=== PATIENT | female | born 1990 | race Caucasian/White ===

== ENCOUNTER 2017-11-11 18:31 | Inpatient (IN) ==
[2017-11-11] MEDS ORDERED: ONDANSETRON 4 MG/2 ML VIAL IV STA (18:45)
[2017-11-11] MEDS ORDERED: MORPHINE 4 MG/1 ML VIAL IV STA (18:45)
[2017-11-11] MEDS ORDERED: DIPH/TET/ACEL PERT BOOSTER VACCINE 0.5 ML VIAL IM ONE (18:52)
[2017-11-11] MEDS ORDERED: LEVOFLOXACIN INJ 500 MG in PREMIX 1 EACH IV STA (18:52)
[2017-11-11] MEDS ORDERED: HYDROmorphone 2 MG/1 ML VIAL ONE (18:59)
[2017-11-11] MEDS ORDERED: HYDROmorphone 2 MG/1 ML VIAL IV STA (19:06)
[2017-11-11] MEDS ORDERED: GENTAMICIN INJ 160 MG in SODIUM CHLORIDE 0.9% 100 ML IV STA (20:16)
[2017-11-11] MEDS ORDERED: CLINDAMYCIN INJ 900 MG in PREMIX 1 EACH IV STA (20:16)
[2017-11-11] MEDS ORDERED: SODIUM CHLORIDE 0.9% IV STA (20:25)
[2017-11-11] MEDS ORDERED: GENTAMICIN IV STA (20:25)
[2017-11-11 20:53] LABS: Basophils # 0.1 10*3/uL (0.0-0.2); Basophils % 0.2 % (0.0-0.8); Eosinophils % 0.1 % (0.00-10.9); Hematocrit 38.4 VOL% (35.7-47.0); Hemoglobin 12.3 GM/DL (12.0-16.0); Immature Granulocytes % 0.7 %; Immature Granulocytes Absolute 0.15 #; Lymphocytes # 1.4 10*3/uL (1.4-4.0); Lymphocytes % 6.1 % (21.3-54.2); Mean Corpuscular Hemoglobin 29 PG (27-34); Mean Corpuscular Volume 91.4 FL (87-102); Mean Platelet Volume 9.5 FL (9.6-12.0); Monocytes # 1.5 10*3/uL (0.11-0.8); Monocytes % 6.5 % (1.7-12.7); Neutrophils # 19.6 10*3/uL (1.4-7.4); Neutrophils % 86.4 % (38.7-73.9); Platelet Count 335 T/CUMM (130-400); Red Cell Distribution Width 13.9 % (9.3-17.3); White Blood Count 22.6 T/CUMM (4-12)
[2017-11-11 21:11] LABS: Lactic Acid 1.1 MMOL/L (0.4-2.0)
[2017-11-11 21:13] LABS: Alanine Aminotransferase 102 U/L (13-56); Albumin 3.3 G/DL (3.4-5.0); Alkaline Phosphatase 55 U/L (45-117); Aspartate Amino Transferase 103 U/L (0-37); Blood Urea Nitrogen 14 MG/DL (7-18); Calcium 8.1 MG/DL (8.5-10.1); Glucose 143 MG/DL (74-106); Osmolality,Calculated 285.1 MOS/KG (273-304); Sodium 142 MMOL/L (136-145); Total Protein 6.5 G/DL (6.4-8.3); Troponin I Only < 0.015 NG/ML (0.00-0.045)
[2017-11-11 21:17] LABS: Band Neutrophils 8 % (0-10); Lymphocytes 11 % (20-55); Segmented Neutrophils 77 % (50-85); Total Cells Counted 100
[2017-11-11 21:18] LABS: Platelet Estimate Normal
[2017-11-11] MEDS ORDERED: ALBUTEROL 2.5 MG/3 ML NEB RESP TX ONE (21:24)
[2017-11-12] MEDS ORDERED: MIDAZOLAM 10 MG/2 ML VIAL ONE (00:16)
[2017-11-12] MEDS ORDERED: methylPREDNISolone SOD SUC 125 MG/2 ML VIAL ONE (00:16)
[2017-11-12] MEDS ORDERED: PROPOFOL 200 MG/20 ML VIAL IV ONE (00:16)
[2017-11-12] MEDS ORDERED: SEVOFLURANE 1 UNIT/15 MINUTE INH ONE (00:16)
[2017-11-12] MEDS ORDERED: MIDAZOLAM 2 MG/2 ML VIAL ONE (00:16)
[2017-11-12] MEDS ORDERED: fentaNYL 100 MCG/2 ML VIAL ONE (00:16)
[2017-11-12] MEDS ORDERED: LACTATED RINGERS 2,000 ML IV ONE (00:17)
[2017-11-12] MEDS ORDERED: ROCURONIUM 100 MG/10 ML VIAL IV ONE (00:17)
[2017-11-12] MEDS ORDERED: SUCCINYLCHOLINE 200 MG/10 ML VIAL ONE (00:17)
[2017-11-12] MEDS ORDERED: PHENYLEPHRINE 1 MG/10 ML SYRINGE IV ONE (00:17)
[2017-11-12] MEDS: DEXTROSE 5% LACTATED RINGERS 1,000 ML IV SCH ×5 (00:39→23:21)
[2017-11-12] MEDS: PROPOFOL 1,000 MG/100 ML BOTTLE IV SCH ×12 (00:39→23:32)
[2017-11-12 00:49] LABS: Apearance,Urine CLEAR (Clear); Bilirubin,Urine Negative (Negative); Blood, Urine Negative (Negative); Glucose,Urine (UA) Negative (Negative); Ketones,Urine 20 mg/dL (Negative); Mucus,Urine Occasional /LPF (Occasional); Nitrite,Urine Negative (Negative); Protein,Urine Negative; RBC,Urine 14 /HPF (0-4); Squamous Epithelial Cell,Urine Occasional /HPF (0-10); Urine Color Yellow (Yellow); Urine Specific Gravity > 1.060 (1.001-1.035); Urine Urobilinogen < 2.0 EU/DL (0.2-1.0); WBC,Urine 1 /HPF (0-6)
[2017-11-12 00:50] LABS: ABG Base Excess -1.9 MMOL/L (-2.5-2.5); ABG HCO3 24.9 MMOL/L (20-26); ABG Oxygen Saturation 98.2 % (95-100); ABG PCO2 50.7 MM HG (35-48); ABG PH 7.309 (7.35-7.45); ABG PO2 145.4 MM HG (80-95); ABG TCO2 26.5 MMOL/L (23-27)
[2017-11-12] MEDS: MORPHINE 4 MG/1 ML VIAL IV PRN ×4 (03:17→23:20)
[2017-11-12] MEDS: GENTAMICIN INJ 240 MG in SODIUM CHLORIDE 0.9% 100 ML IV SCH ×3 (05:00→21:40)
[2017-11-12] MEDS: CLINDAMYCIN INJ 900 MG in PREMIX 1 EACH IV SCH ×3 (05:30→21:41)
[2017-11-12 06:42] LABS: Basophils % 0.2 % (0.0-0.8); Hematocrit 36.1 VOL% (35.7-47.0); Hemoglobin 11.5 GM/DL (12.0-16.0); Immature Granulocytes % 1.5 %; Immature Granulocytes Absolute 0.26 #; Lymphocytes % 5.9 % (21.3-54.2); Mean Corpuscular HGB Conc 31.9 GM/DL (32-36); Mean Corpuscular Hemoglobin 29 PG (27-34); Mean Corpuscular Volume 90.5 FL (87-102); Monocytes # 0.6 10*3/uL (0.11-0.8); Monocytes % 3.3 % (1.7-12.7); Neutrophils % 89.1 % (38.7-73.9); Platelet Count 337 T/CUMM (130-400); Red Blood Count 3.99 MC/CUMM (3.8-5.5); White Blood Count 16.8 T/CUMM (4-12)
[2017-11-12] MEDS ORDERED: LACTATED RINGERS 1,000 ML IV ONE (07:08)
[2017-11-12 07:15] LABS: Calcium 8.3 MG/DL (8.5-10.1); Osmolality,Calculated 287.1 MOS/KG (273-304); Potassium 4.7 MMOL/L (3.5-5.1)
[2017-11-12 07:35] LABS: ABG Base Excess 0.2 MMOL/L (-2.5-2.5); ABG HCO3 26.4 MMOL/L (20-26); ABG Oxygen Saturation 98.7 % (95-100); ABG PCO2 49.2 MM HG (35-48); ABG PH 7.347 (7.35-7.45); ABG PO2 172.9 MM HG (80-95); ABG TCO2 27.9 MMOL/L (23-27)
[2017-11-12] MEDS ORDERED: DEXTROSE 50% 25 GM/50 ML VIAL IV PRN (08:01)
[2017-11-12] MEDS ORDERED: GLUCAGON 1 MG VIAL IM PRN (08:01)
[2017-11-12] MEDS: PANTOPRAZOLE 40 MG VIAL IV SCH (09:36)
[2017-11-12] MEDS: ALBUTEROL/IPRATROPIUM 3 ML NEB RESP TX SCH ×3 (10:35→19:20)
[2017-11-12] MEDS: INSULIN LISPRO 100 UNIT/ML SUBCUT SCH ×2 (12:43→18:30)
[2017-11-12] MEDS: FONDAPARINUX 2.5 MG/0.5 ML SYRINGE SUBCUT SCH (15:54)
[2017-11-13] MEDS: INSULIN LISPRO 100 UNIT/ML SUBCUT SCH ×4 (00:07→19:10)
[2017-11-13] MEDS: PROPOFOL 1,000 MG/100 ML BOTTLE IV SCH ×15 (00:58→22:50)
[2017-11-13 04:57] LABS: Allen Test Positive; Pt O2 Delivery Device Ventilator
[2017-11-13] MEDS: CLINDAMYCIN INJ 900 MG in PREMIX 1 EACH IV SCH ×3 (05:19→21:37)
[2017-11-13 05:30] LABS: ABG Base Excess 2.8 MMOL/L (-2.5-2.5); ABG HCO3 26.9 MMOL/L (20-26); ABG Oxygen Saturation 98.1 % (95-100); ABG PCO2 54.4 MM HG (35-48); ABG PH 7.342 (7.35-7.45); ABG TCO2 27.1 MMOL/L (23-27)
[2017-11-13] MEDS: DEXTROSE 5% LACTATED RINGERS 1,000 ML IV SCH ×2 (06:50→14:46)
[2017-11-13] MEDS: ALBUTEROL/IPRATROPIUM 3 ML NEB RESP TX SCH ×4 (07:02→19:19)
[2017-11-13] MEDS: MORPHINE 4 MG/1 ML VIAL IV PRN ×4 (08:34→23:39)
[2017-11-13] MEDS: PANTOPRAZOLE 40 MG VIAL IV SCH (08:36)
[2017-11-13 09:25] LABS: Basophils % 0.2 % (0.0-0.8); Eosinophils % 0.3 % (0.00-10.9); Hematocrit 31.5 VOL% (35.7-47.0); Hemoglobin 9.6 GM/DL (12.0-16.0); Immature Granulocytes % 0.7 %; Immature Granulocytes Absolute 0.09 #; Lymphocytes # 2.3 10*3/uL (1.4-4.0); Lymphocytes % 18.6 % (21.3-54.2); Mean Corpuscular HGB Conc 30.5 GM/DL (32-36); Mean Corpuscular Hemoglobin 29 PG (27-34); Mean Platelet Volume 10.6 FL (9.6-12.0); Monocytes # 1.2 10*3/uL (0.11-0.8); Monocytes % 9.5 % (1.7-12.7); Neutrophils # 8.6 10*3/uL (1.4-7.4); Neutrophils % 70.7 % (38.7-73.9); Platelet Count 202 T/CUMM (130-400); Red Blood Count 3.28 MC/CUMM (3.8-5.5); Red Cell Distribution Width 14.3 % (9.3-17.3); White Blood Count 12.2 T/CUMM (4-12)
[2017-11-13] MEDS: GENTAMICIN INJ 280 MG in SODIUM CHLORIDE 0.9% 100 ML IV SCH ×3 (11:49→21:37)
[2017-11-13] MEDS: FONDAPARINUX 2.5 MG/0.5 ML SYRINGE SUBCUT SCH (15:17)
[2017-11-13] MEDS ORDERED: AMINOPHYLLINE 250 MG in SODIUM CHLORIDE 0.9% 100 ML IV ONE (16:29)
[2017-11-14] MEDS: INSULIN LISPRO 100 UNIT/ML SUBCUT SCH ×4 (00:26→19:09)
[2017-11-14] MEDS: PROPOFOL 1,000 MG/100 ML BOTTLE IV SCH ×15 (00:26→22:10)
[2017-11-14] MEDS: DEXTROSE 5% LACTATED RINGERS 1,000 ML IV SCH ×3 (00:53→21:14)
[2017-11-14] MEDS: AMINOPHYLLINE 500 MG in SODIUM CHLORIDE 0.9% 480 ML IV SCH (03:50)
[2017-11-14] MEDS: MORPHINE 4 MG/1 ML VIAL IV PRN ×4 (04:15→23:33)
[2017-11-14] MEDS: GENTAMICIN INJ 280 MG in SODIUM CHLORIDE 0.9% 100 ML IV SCH ×3 (05:03→21:16)
[2017-11-14] MEDS: CLINDAMYCIN INJ 900 MG in PREMIX 1 EACH IV SCH ×3 (05:20→21:15)
[2017-11-14 05:21] LABS: Basophils % 0.4 % (0.0-0.8); Eosinophils # 0.1 10*3/uL (0.0-0.87); Eosinophils % 1.1 % (0.00-10.9); Hematocrit 26.7 VOL% (35.7-47.0); Hemoglobin 8.4 GM/DL (12.0-16.0); Immature Granulocytes Absolute 0.11 #; Lymphocytes # 1.9 10*3/uL (1.4-4.0); Lymphocytes % 16.7 % (21.3-54.2); Mean Corpuscular HGB Conc 31.5 GM/DL (32-36); Mean Corpuscular Hemoglobin 30 PG (27-34); Mean Corpuscular Volume 93.7 FL (87-102); Mean Platelet Volume 9.6 FL (9.6-12.0); Monocytes # 1.1 10*3/uL (0.11-0.8); Monocytes % 9.3 % (1.7-12.7); Neutrophils # 8.2 10*3/uL (1.4-7.4); Neutrophils % 71.5 % (38.7-73.9); Platelet Count 243 T/CUMM (130-400); Red Blood Count 2.85 MC/CUMM (3.8-5.5); Red Cell Distribution Width 14.2 % (9.3-17.3); White Blood Count 11.4 T/CUMM (4-12)
[2017-11-14 05:53] LABS: Calcium 7.8 MG/DL (8.5-10.1); Osmolality,Calculated 281.1 MOS/KG (273-304)
[2017-11-14] MEDS: ALBUTEROL/IPRATROPIUM 3 ML NEB RESP TX SCH ×4 (07:03→20:14)
[2017-11-14] MEDS: PANTOPRAZOLE 40 MG VIAL IV SCH (08:05)
[2017-11-14 09:28] LABS: ABG Base Excess 5.3 MMOL/L (-2.5-2.5); ABG HCO3 29.2 MMOL/L (20-26); ABG Oxygen Saturation 98.4 % (95-100); ABG PCO2 54.4 MM HG (35-48); ABG PH 7.372 (7.35-7.45); ABG TCO2 29.3 MMOL/L (23-27)
[2017-11-14] MEDS: MIDAZOLAM 100 MG in SODIUM CHLORIDE 0.9% 80 ML IV PRN (12:42)
[2017-11-14] MEDS: FONDAPARINUX 2.5 MG/0.5 ML SYRINGE SUBCUT SCH (16:18)
[2017-11-15] MEDS: PROPOFOL 1,000 MG/100 ML BOTTLE IV SCH ×10 (00:10→20:57)
[2017-11-15] MEDS: INSULIN LISPRO 100 UNIT/ML SUBCUT SCH ×4 (00:12→17:34)
[2017-11-15] MEDS: AMINOPHYLLINE 500 MG in SODIUM CHLORIDE 0.9% 480 ML IV SCH (04:43)
[2017-11-15 04:51] LABS: ABG Base Excess 6.7 MMOL/L (-2.5-2.5); ABG HCO3 30.6 MMOL/L (20-26); ABG PCO2 50.8 MM HG (35-48); ABG PH 7.414 (7.35-7.45); ABG TCO2 29.4 MMOL/L (23-27); Allen Test Positive; Pt O2 Delivery Device Ventilator
[2017-11-15] MEDS: CLINDAMYCIN INJ 900 MG in PREMIX 1 EACH IV SCH ×3 (05:17→21:37)
[2017-11-15] MEDS: GENTAMICIN INJ 280 MG in SODIUM CHLORIDE 0.9% 100 ML IV SCH ×3 (05:17→22:35)
[2017-11-15] MEDS: MORPHINE 4 MG/1 ML VIAL IV PRN ×2 (05:38→20:07)
[2017-11-15] MEDS ORDERED: BACITRACIN OINT 0.9 GM PACK TOP ONE (06:49)
[2017-11-15] MEDS ORDERED: BUPIVACAINE 0.5% 50 ML VIAL ONE (06:50)
[2017-11-15] MEDS: ALBUTEROL/IPRATROPIUM 3 ML NEB RESP TX SCH ×4 (07:25→19:19)
[2017-11-15 07:38] LABS: Hematocrit 23.2 VOL% (35.7-47.0); Hemoglobin 7.4 GM/DL (12.0-16.0); Mean Corpuscular HGB Conc 31.9 GM/DL (32-36); Mean Corpuscular Hemoglobin 29 PG (27-34); Mean Corpuscular Volume 91.3 FL (87-102); Red Blood Count 2.54 MC/CUMM (3.8-5.5); White Blood Count 11.9 T/CUMM (4-12)
[2017-11-15 07:39] LABS: Basophils % 0.3 % (0.0-0.8); Eosinophils # 0.3 10*3/uL (0.0-0.87); Eosinophils % 2.6 % (0.00-10.9); Immature Granulocytes Absolute 0.12 #; Lymphocytes # 1.4 10*3/uL (1.4-4.0); Lymphocytes % 12.1 % (21.3-54.2); Mean Platelet Volume 9.9 FL (9.6-12.0); Monocytes # 0.9 10*3/uL (0.11-0.8); Monocytes % 7.9 % (1.7-12.7); Neutrophils # 9.1 10*3/uL (1.4-7.4); Neutrophils % 76.1 % (38.7-73.9); Platelet Count 232 T/CUMM (130-400); Red Cell Distribution Width 13.8 % (9.3-17.3)
[2017-11-15 08:16] LABS: Calcium 7.9 MG/DL (8.5-10.1); Osmolality,Calculated 277.4 MOS/KG (273-304); Potassium 3.5 MMOL/L (3.5-5.1)
[2017-11-15] MEDS ORDERED: NEOMYCIN/POLYMYXIN/BACITRACIN OINT 28.4 GM TUBE TOP ONE (09:15)
[2017-11-15] MEDS ORDERED: FUROSEMIDE 40 MG/4 ML VIAL IV PRN (11:15)
[2017-11-15] MEDS ORDERED: SODIUM CHLORIDE 0.9% 1,000 ML IV PRN (11:15)
[2017-11-15] MEDS: DEXTROSE 5% LACTATED RINGERS 1,000 ML IV SCH ×2 (11:25→14:46)
[2017-11-15] MEDS ORDERED: SUFentanil 50 MCG/ML AMP ONE (11:31)
[2017-11-15] MEDS ORDERED: SEVOFLURANE 1 UNIT/15 MINUTE INH ONE (11:31)
[2017-11-15] MEDS ORDERED: MIDAZOLAM 10 MG/2 ML VIAL ONE (11:31)
[2017-11-15] MEDS ORDERED: ROCURONIUM 100 MG/10 ML VIAL IV ONE (11:33)
[2017-11-15] MEDS ORDERED: PROPOFOL 200 MG/20 ML VIAL IV ONE (11:34)
[2017-11-15] MEDS ORDERED: PROPOFOL 500 MG/50 ML BOTTLE IV ONE ×2 (11:35)
[2017-11-15] MEDS: PANTOPRAZOLE 40 MG VIAL IV SCH (13:23)
[2017-11-15] MEDS: ACETAMINOPHEN 325 MG TABLET PO PRN (14:02)
[2017-11-15] MEDS: FONDAPARINUX 2.5 MG/0.5 ML SYRINGE SUBCUT SCH (14:57)
[2017-11-15] MEDS: MAGNESIUM SULF RIDER 2 GM in PREMIX 1 EACH IV PRN (16:26)
[2017-11-15] MEDS: MIDAZOLAM 100 MG in SODIUM CHLORIDE 0.9% 80 ML IV PRN (16:36)
[2017-11-15] MEDS ORDERED: MINERAL OIL/PETROLATUM OPH OINT 3.5 GM TUBE ONE (19:31)
[2017-11-16] MEDS: INSULIN LISPRO 100 UNIT/ML SUBCUT SCH ×2 (00:06→06:03)
[2017-11-16] MEDS: PROPOFOL 1,000 MG/100 ML BOTTLE IV SCH ×3 (00:25→06:58)
[2017-11-16] MEDS: DEXTROSE 5% LACTATED RINGERS 1,000 ML IV SCH (02:37)
[2017-11-16] MEDS: MORPHINE 4 MG/1 ML VIAL IV PRN ×3 (02:58→11:02)
[2017-11-16 03:30] LABS: ABG Base Excess 8.6 MMOL/L (-2.5-2.5); ABG HCO3 32.4 MMOL/L (20-26); ABG PCO2 47.8 MM HG (35-48); ABG PH 7.452 (7.35-7.45); ABG TCO2 32.2 MMOL/L (23-27); Allen Test Positive; Pt O2 Delivery Device Ventilator
[2017-11-16] MEDS: CLINDAMYCIN INJ 900 MG in PREMIX 1 EACH IV SCH ×3 (05:58→21:08)
[2017-11-16] MEDS: GENTAMICIN INJ 280 MG in SODIUM CHLORIDE 0.9% 100 ML IV SCH (06:00)
[2017-11-16] MEDS: AMINOPHYLLINE 500 MG in SODIUM CHLORIDE 0.9% 480 ML IV SCH (06:05)
[2017-11-16 06:06] LABS: Basophils % 0.3 % (0.0-0.8); Eosinophils # 0.4 10*3/uL (0.0-0.87); Eosinophils % 2.4 % (0.00-10.9); Hematocrit 25.6 VOL% (35.7-47.0); Hemoglobin 8.6 GM/DL (12.0-16.0); Immature Granulocytes % 1.5 %; Immature Granulocytes Absolute 0.22 #; Lymphocytes # 1.4 10*3/uL (1.4-4.0); Mean Corpuscular HGB Conc 33.6 GM/DL (32-36); Mean Corpuscular Hemoglobin 30 PG (27-34); Mean Corpuscular Volume 88.3 FL (87-102); Mean Platelet Volume 9.7 FL (9.6-12.0); Monocytes # 1.3 10*3/uL (0.11-0.8); Monocytes % 8.4 % (1.7-12.7); Neutrophils # 11.9 10*3/uL (1.4-7.4); Neutrophils % 78.4 % (38.7-73.9); Platelet Count 252 T/CUMM (130-400); Red Cell Distribution Width 14.1 % (9.3-17.3); White Blood Count 15.2 T/CUMM (4-12)
[2017-11-16 06:13] LABS: Calcium 7.7 MG/DL (8.5-10.1); Osmolality,Calculated 275.5 MOS/KG (273-304); Potassium 3.2 MMOL/L (3.5-5.1)
[2017-11-16 06:36] LABS: Prealbumin 6.9 MG/DL (20-40)
[2017-11-16] MEDS: ALBUTEROL/IPRATROPIUM 3 ML NEB RESP TX SCH ×4 (07:33→20:05)
[2017-11-16] MEDS ORDERED: FUROSEMIDE 40 MG/4 ML VIAL IV ONE (08:02)
[2017-11-16] MEDS ORDERED: MULTIVITAMIN LIQUID (CENTRUM) 60 ML BOTTLE PO SCH (09:00)
[2017-11-16] MEDS: fentaNYL INJ 1,250 MCG in SODIUM CHLORIDE 0.9% 225 ML IV PRN ×3 (09:45→19:01)
[2017-11-16] MEDS: MIDAZOLAM 100 MG in SODIUM CHLORIDE 0.9% 80 ML IV PRN (09:47)
[2017-11-16] MEDS: PANTOPRAZOLE 40 MG VIAL IV SCH (09:50)
[2017-11-16] MEDS: POTASSIUM CHLORIDE RIDER 20 MEQ in PREMIX 1 EACH IV PRN ×3 (09:55→22:35)
[2017-11-16] MEDS: GENTAMICIN IV SCH (14:43)
[2017-11-16] MEDS: SODIUM CHLORIDE 0.9% IV SCH (14:43)
[2017-11-16] MEDS: FONDAPARINUX 2.5 MG/0.5 ML SYRINGE SUBCUT SCH (14:57)
[2017-11-16] MEDS: fentaNYL INJ 2,500 MCG in SODIUM CHLORIDE 0.9% 450 ML IV PRN (22:30)
[2017-11-17] MEDS: POTASSIUM CHLORIDE RIDER 10 MEQ in PREMIX 1 EACH IV PRN (00:58)
[2017-11-17] MEDS: MIDAZOLAM 100 MG in SODIUM CHLORIDE 0.9% 80 ML IV PRN ×2 (03:50→23:35)
[2017-11-17 03:53] LABS: ABG Base Excess 7.8 MMOL/L (-2.5-2.5); ABG HCO3 31.5 MMOL/L (20-26); ABG Oxygen Saturation 98.1 % (95-100); ABG PCO2 59.8 MM HG (35-48); ABG PH 7.373 (7.35-7.45); ABG TCO2 31.6 MMOL/L (23-27)
[2017-11-17] MEDS: fentaNYL INJ 2,500 MCG in SODIUM CHLORIDE 0.9% 450 ML IV PRN ×2 (05:10→12:03)
[2017-11-17] MEDS: CLINDAMYCIN INJ 900 MG in PREMIX 1 EACH IV SCH ×3 (05:10→22:03)
[2017-11-17 05:17] LABS: Basophils # 0.1 10*3/uL (0.0-0.2); Basophils % 0.3 % (0.0-0.8); Eosinophils # 0.5 10*3/uL (0.0-0.87); Eosinophils % 2.9 % (0.00-10.9); Hematocrit 26.5 VOL% (35.7-47.0); Hemoglobin 8.5 GM/DL (12.0-16.0); Immature Granulocytes % 3.4 %; Lymphocytes # 1.7 10*3/uL (1.4-4.0); Lymphocytes % 9.9 % (21.3-54.2); Mean Corpuscular HGB Conc 32.1 GM/DL (32-36); Mean Corpuscular Hemoglobin 29 PG (27-34); Mean Corpuscular Volume 91.1 FL (87-102); Mean Platelet Volume 9.7 FL (9.6-12.0); Monocytes # 2.1 10*3/uL (0.11-0.8); Monocytes % 12.1 % (1.7-12.7); NRBC # 0.05 10*3/uL; Neutrophils # 12.4 10*3/uL (1.4-7.4); Neutrophils % 71.4 % (38.7-73.9); Platelet Count 255 T/CUMM (130-400); Red Blood Count 2.91 MC/CUMM (3.8-5.5); Red Cell Distribution Width 13.9 % (9.3-17.3); White Blood Count 17.4 T/CUMM (4-12)
[2017-11-17 05:37] LABS: Band Neutrophils 1 % (0-10); Eosinophils 3 % (0-10); Giant Platelets Few; Hypochromasia 1+; Lymphocytes 11 % (20-55); Platelet Estimate Adequate; Segmented Neutrophils 78 % (50-85); Total Cells Counted 100
[2017-11-17 05:43] LABS: Calcium 7.3 MG/DL (8.5-10.1); Osmolality,Calculated 276.5 MOS/KG (273-304); Potassium 3.6 MMOL/L (3.5-5.1)
[2017-11-17] MEDS: POTASSIUM CHLORIDE RIDER 20 MEQ in PREMIX 1 EACH IV PRN (06:19)
[2017-11-17] MEDS: ALBUTEROL/IPRATROPIUM 3 ML NEB RESP TX SCH ×4 (06:59→19:12)
[2017-11-17] MEDS: AMINOPHYLLINE 500 MG in SODIUM CHLORIDE 0.9% 480 ML IV SCH (08:44)
[2017-11-17] MEDS: ACETAMINOPHEN 325 MG TABLET PO PRN ×2 (08:48→13:52)
[2017-11-17] MEDS: PANTOPRAZOLE 40 MG VIAL IV SCH (08:49)
[2017-11-17 10:31] LABS: Apearance,Urine Slightly Hazy (Clear); Bacteria,Urine Occasional /HPF (Few); Bilirubin,Urine Small mg/dL (Negative); Blood, Urine Small mg/dL (Negative); Glucose,Urine (UA) Negative (Negative); Ketones,Urine Negative (Negative); Mucus,Urine Occasional /LPF (Occasional); Nitrite,Urine Negative (Negative); Protein,Urine 100 MG/DL; RBC,Urine 64 /HPF (0-4); Squamous Epithelial Cell,Urine Occasional /HPF (0-10); Urine Color Dark yellow (Yellow); Urine Specific Gravity 1.024 (1.001-1.035); WBC,Urine 5 /HPF (0-6)
[2017-11-17 10:42] LABS: ABG Base Excess 8.1 MMOL/L (-2.5-2.5); ABG HCO3 31.9 MMOL/L (20-26); ABG Oxygen Saturation 99.6 % (95-100); ABG PCO2 48.3 MM HG (35-48); ABG PH 7.445 (7.35-7.45)
[2017-11-17] MEDS: LEVOFLOXACIN INJ 750 MG in PREMIX 1 EACH IV SCH (10:58)
[2017-11-17] MEDS: THEOPHYLLINE ER (24 HR) 400 MG CAPSULE PO SCH (13:52)
[2017-11-17] MEDS: GENTAMICIN IV SCH (14:06)
[2017-11-17] MEDS: SODIUM CHLORIDE 0.9% IV SCH (14:06)
[2017-11-17] MEDS: FONDAPARINUX 2.5 MG/0.5 ML SYRINGE SUBCUT SCH (15:56)
[2017-11-18] MEDS: fentaNYL INJ 2,500 MCG in SODIUM CHLORIDE 0.9% 450 ML IV PRN ×4 (01:05→21:42)
[2017-11-18] MEDS: ACETAMINOPHEN 325 MG TABLET PO PRN ×3 (03:56→13:20)
[2017-11-18 04:16] LABS: Basophils # 0.1 10*3/uL (0.0-0.2); Basophils % 0.3 % (0.0-0.8); Eosinophils # 0.4 10*3/uL (0.0-0.87); Hematocrit 23.2 VOL% (35.7-47.0); Hemoglobin 7.3 GM/DL (12.0-16.0); Immature Granulocytes % 8.4 %; Immature Granulocytes Absolute 1.48 #; Lymphocytes # 1.9 10*3/uL (1.4-4.0); Lymphocytes % 10.7 % (21.3-54.2); Mean Corpuscular HGB Conc 31.5 GM/DL (32-36); Mean Corpuscular Hemoglobin 29 PG (27-34); Mean Corpuscular Volume 92.4 FL (87-102); Mean Platelet Volume 10.3 FL (9.6-12.0); Monocytes # 2.5 10*3/uL (0.11-0.8); Monocytes % 14.2 % (1.7-12.7); NRBC # 0.04 10*3/uL; Neutrophils # 11.3 10*3/uL (1.4-7.4); Neutrophils % 64.4 % (38.7-73.9); Platelet Count 237 T/CUMM (130-400); Red Blood Count 2.51 MC/CUMM (3.8-5.5); Red Cell Distribution Width 14.2 % (9.3-17.3); White Blood Count 17.6 T/CUMM (4-12)
[2017-11-18 04:43] LABS: Calcium 7.2 MG/DL (8.5-10.1)
[2017-11-18 04:44] LABS: Osmolality,Calculated 282.7 MOS/KG (273-304); Potassium 3.6 MMOL/L (3.5-5.1)
[2017-11-18 04:46] LABS: Band Neutrophils 4 % (0-10); Eosinophils 4 % (0-10); Giant Platelets Few; Hypochromasia 1+; Lymphocytes 8 % (20-55); Myelocytes 1 %; Ovalocytes Slight; Platelet Estimate Adequate; Segmented Neutrophils 71 % (50-85); Total Cells Counted 100
[2017-11-18 04:52] LABS: ABG Base Excess 6.9 MMOL/L (-2.5-2.5); ABG HCO3 30.7 MMOL/L (20-26); ABG Oxygen Saturation 97.6 % (95-100); ABG PCO2 52.7 MM HG (35-48); ABG PH 7.403 (7.35-7.45); ABG PO2 94.2 MM HG (80-95); ABG TCO2 30.2 MMOL/L (23-27); Allen Test Positive; Pt O2 Delivery Device Ventilator
[2017-11-18] MEDS: CLINDAMYCIN INJ 900 MG in PREMIX 1 EACH IV SCH ×3 (05:58→22:04)
[2017-11-18] MEDS: ALBUTEROL/IPRATROPIUM 3 ML NEB RESP TX SCH ×4 (07:14→19:10)
[2017-11-18] MEDS: PANTOPRAZOLE 40 MG VIAL IV SCH (09:21)
[2017-11-18] MEDS: LEVOFLOXACIN INJ 750 MG in PREMIX 1 EACH IV SCH (09:24)
[2017-11-18] MEDS: THEOPHYLLINE ER (24 HR) 400 MG CAPSULE PO SCH (09:26)
[2017-11-18] MEDS ORDERED: SODIUM CHLORIDE 0.9% 1,000 ML IV PRN ×2 (10:22→14:25)
[2017-11-18 13:46] LABS: Apearance,Urine Slightly Hazy (Clear); Bilirubin,Urine Negative (Negative); Blood, Urine Moderate mg/dL (Negative); Glucose,Urine (UA) Negative (Negative); Ketones,Urine Negative (Negative); Nitrite,Urine Negative (Negative); Protein,Urine 100 MG/DL; RBC,Urine 30 /HPF (0-4); Squamous Epithelial Cell,Urine Occasional /HPF (0-10); Urine Color Amber (Yellow); Urine Specific Gravity 1.053 (1.001-1.035); WBC,Urine 8 /HPF (0-6)
[2017-11-18] MEDS: POTASSIUM CHLORIDE RIDER 20 MEQ in PREMIX 1 EACH IV PRN (15:16)
[2017-11-18] MEDS: SODIUM CHLORIDE 0.9% 1,000 ML IV SCH (16:00)
[2017-11-18] MEDS: FONDAPARINUX 2.5 MG/0.5 ML SYRINGE SUBCUT SCH (16:02)
[2017-11-18] MEDS: ACETYLCYSTEINE 600 MG CAPSULE PO SCH ×2 (16:06→22:04)
[2017-11-18] MEDS: MIDAZOLAM 100 MG in SODIUM CHLORIDE 0.9% 80 ML IV PRN (16:08)
[2017-11-18] MEDS: MICAFUNGIN 150 MG in SODIUM CHLORIDE 0.9% 100 ML IV SCH (20:48)
[2017-11-18 20:54] LABS: Hemoglobin 13.8 GM/DL (12.0-16.0)
[2017-11-19] MEDS: SODIUM CHLORIDE 0.9% 1,000 ML IV SCH ×2 (01:00→01:25)
[2017-11-19 04:12] LABS: Basophils # 0.1 10*3/uL (0.0-0.2); Basophils % 0.3 % (0.0-0.8); Eosinophils # 0.5 10*3/uL (0.0-0.87); Eosinophils % 2.6 % (0.00-10.9); Hematocrit 23.4 VOL% (35.7-47.0); Immature Granulocytes % 7.2 %; Immature Granulocytes Absolute 1.39 #; Lymphocytes # 1.9 10*3/uL (1.4-4.0); Lymphocytes % 9.8 % (21.3-54.2); Mean Corpuscular HGB Conc 32.1 GM/DL (32-36); Mean Corpuscular Hemoglobin 29 PG (27-34); Mean Corpuscular Volume 91.4 FL (87-102); Mean Platelet Volume 10.7 FL (9.6-12.0); Monocytes # 2.2 10*3/uL (0.11-0.8); Monocytes % 11.4 % (1.7-12.7); NRBC # 0.06 10*3/uL; Neutrophils # 13.3 10*3/uL (1.4-7.4); Neutrophils % 68.7 % (38.7-73.9); Platelet Count 209 T/CUMM (130-400); Red Blood Count 2.56 MC/CUMM (3.8-5.5); Red Cell Distribution Width 14.8 % (9.3-17.3); White Blood Count 19.4 T/CUMM (4-12)
[2017-11-19 04:14] LABS: Hemoglobin 7.5 GM/DL (12.0-16.0)
[2017-11-19 04:27] LABS: Allen Test Positive; Pt O2 Delivery Device Ventilator
[2017-11-19 04:28] LABS: ABG Base Excess 4.6 MMOL/L (-2.5-2.5); ABG HCO3 28.6 MMOL/L (20-26); ABG Oxygen Saturation 98.7 % (95-100); ABG PCO2 50.1 MM HG (35-48); ABG PH 7.389 (7.35-7.45); ABG TCO2 28.3 MMOL/L (23-27)
[2017-11-19] MEDS: fentaNYL INJ 2,500 MCG in SODIUM CHLORIDE 0.9% 450 ML IV PRN ×3 (04:32→23:28)
[2017-11-19 05:14] LABS: Albumin 1.9 G/DL (3.4-5.0); Calcium 7.2 MG/DL (8.5-10.1); Osmolality,Calculated 284.5 MOS/KG (273-304); Total Protein 5.6 G/DL (6.4-8.3)
[2017-11-19 05:15] LABS: Band Neutrophils 4 % (0-10); Eosinophils 1 % (0-10); Lymphocytes 8 % (20-55); Myelocytes 1 %; Segmented Neutrophils 71 % (50-85); Total Cells Counted 100
[2017-11-19 05:16] LABS: Hypochromasia 1+; Microcytosis Slight; Platelet Estimate Normal
[2017-11-19 05:17] LABS: Prealbumin 4.2 MG/DL (20-40)
[2017-11-19] MEDS: CLINDAMYCIN INJ 900 MG in PREMIX 1 EACH IV SCH ×3 (05:28→22:23)
[2017-11-19] MEDS: ACETAMINOPHEN 325 MG TABLET PO PRN (06:10)
[2017-11-19] MEDS: ALBUTEROL/IPRATROPIUM 3 ML NEB RESP TX SCH ×4 (07:50→19:30)
[2017-11-19] MEDS: THEOPHYLLINE ER (24 HR) 400 MG CAPSULE PO SCH (09:01)
[2017-11-19] MEDS: PANTOPRAZOLE 40 MG VIAL IV SCH (09:04)
[2017-11-19] MEDS: ACETYLCYSTEINE 600 MG CAPSULE PO SCH ×2 (09:04→22:34)
[2017-11-19 10:57] LABS: Hematocrit 24.6 VOL% (35.7-47.0); Hemoglobin 7.8 GM/DL (12.0-16.0)
[2017-11-19] MEDS: THEOPHYLLINE 5.33 MG/ML 30 ML/BOTTLE NG SCH ×3 (11:23→22:34)
[2017-11-19] MEDS: LEVOFLOXACIN INJ 750 MG in PREMIX 1 EACH IV SCH (11:28)
[2017-11-19] MEDS: MIDAZOLAM 100 MG in SODIUM CHLORIDE 0.9% 80 ML IV PRN (13:36)
[2017-11-19] MEDS: FONDAPARINUX 2.5 MG/0.5 ML SYRINGE SUBCUT SCH (16:19)
[2017-11-19] MEDS: MICAFUNGIN 150 MG in SODIUM CHLORIDE 0.9% 100 ML IV SCH (20:17)
[2017-11-20 02:35] LABS: ABG Base Excess 5.6 MMOL/L (-2.5-2.5); ABG HCO3 31.8 MMOL/L (20-26); ABG Oxygen Saturation 98.4 % (95-100); ABG PCO2 56.6 MM HG (35-48); ABG PH 7.368 (7.35-7.45); ABG PO2 162.7 MM HG (80-95); ABG TCO2 33.6 MMOL/L (23-27); Allen Test Positive; Pt O2 Delivery Device Ventilator
[2017-11-20] MEDS: MIDAZOLAM 100 MG in SODIUM CHLORIDE 0.9% 80 ML IV PRN ×3 (03:51→18:14)
[2017-11-20 05:16] LABS: Basophils # 0.1 10*3/uL (0.0-0.2); Basophils % 0.3 % (0.0-0.8); Eosinophils # 0.2 10*3/uL (0.0-0.87); Eosinophils % 1.1 % (0.00-10.9); Hematocrit 24.4 VOL% (35.7-47.0); Immature Granulocytes % 7.2 %; Immature Granulocytes Absolute 1.28 #; Lymphocytes # 1.8 10*3/uL (1.4-4.0); Lymphocytes % 10.1 % (21.3-54.2); Mean Corpuscular HGB Conc 32.8 GM/DL (32-36); Mean Corpuscular Hemoglobin 30 PG (27-34); Mean Corpuscular Volume 90.7 FL (87-102); Mean Platelet Volume 11.7 FL (9.6-12.0); Monocytes # 1.7 10*3/uL (0.11-0.8); Monocytes % 9.5 % (1.7-12.7); Neutrophils # 12.8 10*3/uL (1.4-7.4); Neutrophils % 71.8 % (38.7-73.9); Platelet Count 194 T/CUMM (130-400); Red Blood Count 2.69 MC/CUMM (3.8-5.5); White Blood Count 17.9 T/CUMM (4-12)
[2017-11-20 05:37] LABS: Band Neutrophils 4 % (0-10); Eosinophils 1 % (0-10); Lymphocytes 8 % (20-55); Nucleated Red Blood Cells 2 (0-5); Segmented Neutrophils 78 % (50-85); Total Cells Counted 100
[2017-11-20 05:38] LABS: Hypochromasia 1+; Microcytosis Slight; Ovalocytes Slight; Platelet Estimate Adequate
[2017-11-20 05:39] LABS: Calcium 7.3 MG/DL (8.5-10.1); Osmolality,Calculated 290.3 MOS/KG (273-304)
[2017-11-20] MEDS: THEOPHYLLINE 5.33 MG/ML 30 ML/BOTTLE NG SCH ×4 (05:56→21:01)
[2017-11-20] MEDS: CLINDAMYCIN INJ 900 MG in PREMIX 1 EACH IV SCH ×3 (05:56→21:15)
[2017-11-20] MEDS: fentaNYL INJ 2,500 MCG in SODIUM CHLORIDE 0.9% 450 ML IV PRN ×3 (06:02→23:00)
[2017-11-20] MEDS: ACETAMINOPHEN 325 MG TABLET PO PRN ×3 (06:30→21:04)
[2017-11-20] MEDS: ALBUTEROL/IPRATROPIUM 3 ML NEB RESP TX SCH ×4 (07:47→19:50)
[2017-11-20] MEDS: PANTOPRAZOLE 40 MG VIAL IV SCH (08:26)
[2017-11-20] MEDS: FUROSEMIDE 40 MG/4 ML VIAL IV SCH ×2 (08:26→17:20)
[2017-11-20] MEDS: ACETYLCYSTEINE 600 MG CAPSULE PO SCH ×2 (08:27→21:04)
[2017-11-20] MEDS: LEVOFLOXACIN INJ 750 MG in PREMIX 1 EACH IV SCH (09:57)
[2017-11-20] MEDS: FONDAPARINUX 2.5 MG/0.5 ML SYRINGE SUBCUT SCH (15:18)
[2017-11-20] MEDS: MICAFUNGIN 150 MG in SODIUM CHLORIDE 0.9% 100 ML IV SCH (21:06)
[2017-11-21] MEDS: MIDAZOLAM 100 MG in SODIUM CHLORIDE 0.9% 80 ML IV PRN ×2 (01:33→10:44)
[2017-11-21 04:15] LABS: ABG Base Excess 7.2 MMOL/L (-2.5-2.5); ABG HCO3 32.8 MMOL/L (20-26); ABG Oxygen Saturation 98.3 % (95-100); ABG PCO2 49.9 MM HG (35-48); ABG PH 7.436 (7.35-7.45); ABG PO2 116.1 MM HG (80-95); ABG TCO2 34.4 MMOL/L (23-27)
[2017-11-21] MEDS: CLINDAMYCIN INJ 900 MG in PREMIX 1 EACH IV SCH ×3 (04:39→21:56)
[2017-11-21] MEDS: THEOPHYLLINE 5.33 MG/ML 30 ML/BOTTLE NG SCH ×4 (04:39→21:53)
[2017-11-21 04:59] LABS: Basophils # 0.1 10*3/uL (0.0-0.2); Basophils % 0.5 % (0.0-0.8); Eosinophils # 0.4 10*3/uL (0.0-0.87); Eosinophils % 2.1 % (0.00-10.9); Hematocrit 22.3 VOL% (35.7-47.0); Hemoglobin 7.2 GM/DL (12.0-16.0); Immature Granulocytes % 8.1 %; Immature Granulocytes Absolute 1.54 #; Lymphocytes # 2.3 10*3/uL (1.4-4.0); Lymphocytes % 12.2 % (21.3-54.2); Mean Corpuscular HGB Conc 32.3 GM/DL (32-36); Mean Corpuscular Hemoglobin 30 PG (27-34); Mean Corpuscular Volume 91.4 FL (87-102); Mean Platelet Volume 12.4 FL (9.6-12.0); Monocytes # 1.6 10*3/uL (0.11-0.8); Monocytes % 8.5 % (1.7-12.7); NRBC # 0.12 10*3/uL; Neutrophils % 68.6 % (38.7-73.9); Platelet Count 196 T/CUMM (130-400); Red Blood Count 2.44 MC/CUMM (3.8-5.5)
[2017-11-21 05:32] LABS: Calcium 7.2 MG/DL (8.5-10.1); Osmolality,Calculated 299.3 MOS/KG (273-304); Potassium 3.9 MMOL/L (3.5-5.1)
[2017-11-21 05:48] LABS: Band Neutrophils 7 % (0-10); Eosinophils 11 % (0-10); Hypochromasia 1+; Lymphocytes 15 % (20-55); Microcytosis Slight; Nucleated Red Blood Cells 1 (0-5); Platelet Estimate Adequate; Segmented Neutrophils 56 % (50-85); Total Cells Counted 100
[2017-11-21] MEDS: ACETAMINOPHEN 325 MG TABLET PO PRN ×3 (06:05→21:52)
[2017-11-21] MEDS: fentaNYL INJ 2,500 MCG in SODIUM CHLORIDE 0.9% 450 ML IV PRN (06:40)
[2017-11-21] MEDS: ALBUTEROL/IPRATROPIUM 3 ML NEB RESP TX SCH ×4 (07:39→20:37)
[2017-11-21] MEDS: MAGNESIUM HYDROXIDE SUSP 30 ML UDCUP PO PRN ×3 (08:49→21:52)
[2017-11-21] MEDS: FUROSEMIDE 40 MG/4 ML VIAL IV SCH ×2 (08:49→15:53)
[2017-11-21] MEDS: ACETYLCYSTEINE 600 MG CAPSULE PO SCH ×2 (08:49→21:53)
[2017-11-21] MEDS: PANTOPRAZOLE 40 MG VIAL IV SCH (08:49)
[2017-11-21] MEDS: LEVOFLOXACIN INJ 750 MG in PREMIX 1 EACH IV SCH (10:58)
[2017-11-21] MEDS: FONDAPARINUX 2.5 MG/0.5 ML SYRINGE SUBCUT SCH (15:53)
[2017-11-21] MEDS: MICAFUNGIN 150 MG in SODIUM CHLORIDE 0.9% 100 ML IV SCH (21:47)
[2017-11-22] MEDS: INSULIN REGULAR 100 UNIT/ML SUBCUT SCH ×4 (02:09→17:46)
[2017-11-22 03:22] LABS: ABG Base Excess 9.2 MMOL/L (-2.5-2.5); ABG HCO3 32.9 MMOL/L (20-26); ABG Oxygen Saturation 97.7 % (95-100); ABG PCO2 52.4 MM HG (35-48); ABG PH 7.429 (7.35-7.45); ABG PO2 94.9 MM HG (80-95); ABG TCO2 32.6 MMOL/L (23-27); Allen Test Positive; Pt O2 Delivery Device Ventilator
[2017-11-22] MEDS: THEOPHYLLINE 5.33 MG/ML 30 ML/BOTTLE NG SCH ×4 (04:14→21:14)
[2017-11-22] MEDS: CLINDAMYCIN INJ 900 MG in PREMIX 1 EACH IV SCH ×3 (06:05→21:48)
[2017-11-22] MEDS: ACETAMINOPHEN 325 MG TABLET PO PRN ×3 (06:31→17:46)
[2017-11-22 07:25] LABS: Basophils # 0.1 10*3/uL (0.0-0.2); Basophils % 0.4 % (0.0-0.8); Eosinophils % 0.2 % (0.00-10.9); Hematocrit 23.6 VOL% (35.7-47.0); Hemoglobin 7.7 GM/DL (12.0-16.0); Immature Granulocytes Absolute 1.44 #; Mean Corpuscular HGB Conc 32.6 GM/DL (32-36); Mean Corpuscular Hemoglobin 30 PG (27-34); Mean Corpuscular Volume 90.8 FL (87-102); Mean Platelet Volume 12.8 FL (9.6-12.0); Monocytes # 1.4 10*3/uL (0.11-0.8); Monocytes % 7.7 % (1.7-12.7); NRBC # 0.14 10*3/uL; Neutrophils # 13.1 10*3/uL (1.4-7.4); Neutrophils % 72.7 % (38.7-73.9); Platelet Count 205 T/CUMM (130-400); Red Cell Distribution Width 15.2 % (9.3-17.3)
[2017-11-22] MEDS: ALBUTEROL/IPRATROPIUM 3 ML NEB RESP TX SCH ×4 (07:26→20:08)
[2017-11-22 07:44] LABS: Band Neutrophils 9 % (0-10); Hypochromasia 1+; Lymphocytes 16 % (20-55); Nucleated Red Blood Cells 2 (0-5); Segmented Neutrophils 67 % (50-85); Total Cells Counted 100
[2017-11-22 07:45] LABS: Microcytosis Slight; Platelet Estimate Normal
[2017-11-22 07:57] LABS: Calcium 7.6 MG/DL (8.5-10.1); Potassium 3.7 MMOL/L (3.5-5.1)
[2017-11-22] MEDS: PANTOPRAZOLE 40 MG VIAL IV SCH (09:05)
[2017-11-22] MEDS: FUROSEMIDE 40 MG/4 ML VIAL IV SCH ×2 (09:05→16:53)
[2017-11-22] MEDS: LEVOFLOXACIN INJ 750 MG in PREMIX 1 EACH IV SCH (09:06)
[2017-11-22] MEDS: ACETYLCYSTEINE 600 MG CAPSULE PO SCH ×2 (09:06→21:13)
[2017-11-22] MEDS ORDERED: SODIUM CHLORIDE 0.9% 1,000 ML IV PRN (12:12)
[2017-11-22] MEDS: fentaNYL INJ 2,500 MCG in SODIUM CHLORIDE 0.9% 450 ML IV PRN (14:15)
[2017-11-22] MEDS: MIDAZOLAM 100 MG in SODIUM CHLORIDE 0.9% 80 ML IV PRN (15:25)
[2017-11-22] MEDS: FONDAPARINUX 2.5 MG/0.5 ML SYRINGE SUBCUT SCH (16:52)
[2017-11-22] MEDS ORDERED: diphenhydrAMINE 50 MG/1 ML VIAL IV ONE (19:29)
[2017-11-22] MEDS ORDERED: ACETAMINOPHEN INJ 1,000 MG in PREMIX 1 EACH IV ONE (19:29)
[2017-11-23] MEDS ORDERED: ACETAMINOPHEN 500 MG TABLET PO SCH
[2017-11-23] MEDS: INSULIN REGULAR 100 UNIT/ML SUBCUT SCH ×2 (01:00→05:45)
[2017-11-23] MEDS ORDERED: ACETAMINOPHEN INJ 1,000 MG in PREMIX 1 EACH IV ONE ×2 (02:00→08:00)
[2017-11-23] MEDS: THEOPHYLLINE 5.33 MG/ML 30 ML/BOTTLE NG SCH ×4 (03:15→21:13)
[2017-11-23 03:54] LABS: ABG Base Excess 5.6 MMOL/L (-2.5-2.5); ABG HCO3 29.4 MMOL/L (20-26); ABG Oxygen Saturation 94.4 % (95-100); ABG PCO2 51.9 MM HG (35-48); ABG PH 7.393 (7.35-7.45); ABG PO2 71.7 MM HG (80-95); ABG TCO2 28.8 MMOL/L (23-27)
[2017-11-23 05:03] LABS: Basophils # 0.1 10*3/uL (0.0-0.2); Basophils % 0.7 % (0.0-0.8); Eosinophils % 0.1 % (0.00-10.9); Hematocrit 31.6 VOL% (35.7-47.0); Immature Granulocytes % 6.9 %; Immature Granulocytes Absolute 1.26 #; Lymphocytes # 2.1 10*3/uL (1.4-4.0); Lymphocytes % 11.6 % (21.3-54.2); Mean Corpuscular HGB Conc 32.6 GM/DL (32-36); Mean Corpuscular Hemoglobin 29 PG (27-34); Mean Corpuscular Volume 90.3 FL (87-102); Mean Platelet Volume 13.5 FL (9.6-12.0); Monocytes # 1.5 10*3/uL (0.11-0.8); NRBC # 0.19 10*3/uL; Neutrophils # 13.3 10*3/uL (1.4-7.4); Neutrophils % 72.7 % (38.7-73.9); Platelet Count 241 T/CUMM (130-400); Red Cell Distribution Width 15.4 % (9.3-17.3); White Blood Count 18.2 T/CUMM (4-12)
[2017-11-23 05:06] LABS: Hemoglobin 10.3 GM/DL (12.0-16.0)
[2017-11-23 05:33] LABS: Albumin 2.1 G/DL (3.4-5.0); Calcium 7.1 MG/DL (8.5-10.1); Osmolality,Calculated 313.8 MOS/KG (273-304); Potassium 3.2 MMOL/L (3.5-5.1); Total Protein 6.2 G/DL (6.4-8.3)
[2017-11-23 05:34] LABS: Band Neutrophils 4 % (0-10); Lymphocytes 9 % (20-55); Myelocytes 1 %; Nucleated Red Blood Cells 1 (0-5); Segmented Neutrophils 76 % (50-85); Total Cells Counted 100
[2017-11-23 05:35] LABS: Hypochromasia 1+; Microcytosis Slight
[2017-11-23 05:36] LABS: Platelet Estimate Normal; Polychromasia Slight
[2017-11-23] MEDS: CLINDAMYCIN INJ 900 MG in PREMIX 1 EACH IV SCH ×3 (05:46→21:14)
[2017-11-23] MEDS: POTASSIUM CHLORIDE RIDER 20 MEQ in PREMIX 1 EACH IV PRN ×3 (06:00→15:04)
[2017-11-23] MEDS: ALBUTEROL/IPRATROPIUM 3 ML NEB RESP TX SCH ×4 (07:22→20:39)
[2017-11-23] MEDS: PANTOPRAZOLE 40 MG VIAL IV SCH (08:31)
[2017-11-23] MEDS: FUROSEMIDE 40 MG/4 ML VIAL IV SCH ×2 (08:34→16:22)
[2017-11-23] MEDS: INSULIN REGULAR DRIP 100 ML IV PRN ×2 (08:52→19:27)
[2017-11-23 09:14] LABS: VLDL CHOLESTEROL 71.4 MG/DL
[2017-11-23 09:29] LABS: Amorphous Crystals,Urine Occasional /HPF (Few); Apearance,Urine Slightly Hazy (Clear); Bilirubin,Urine Negative (Negative); Blood, Urine Large mg/dL (Negative); Glucose,Urine (UA) >=500 mg/dL (Negative); Ketones,Urine Negative (Negative); Nitrite,Urine Negative (Negative); Protein,Urine 100 MG/DL; RBC,Urine 1 /HPF (0-4); Squamous Epithelial Cell,Urine Occasional /HPF (0-10); Urine Color Yellow (Yellow); Urine Specific Gravity 1.021 (1.001-1.035); Urine Urobilinogen < 2.0 EU/DL (0.2-1.0); WBC,Urine 3 /HPF (0-6)
[2017-11-23] MEDS: POTASSIUM CHLORIDE 20 MEQ/15 ML UDCUP PER TUBE SCH (10:25)
[2017-11-23] MEDS: MIDAZOLAM 100 MG in SODIUM CHLORIDE 0.9% 80 ML IV PRN (10:47)
[2017-11-23 11:05] LABS: Bilirubin,Total 0.8 MG/DL (0.2-1.0); Calcium 7.3 MG/DL (8.5-10.1); Osmolality,Calculated 315.7 MOS/KG (273-304); Potassium 3.1 MMOL/L (3.5-5.1); Total Protein 6.4 G/DL (6.4-8.3)
[2017-11-23] MEDS: FONDAPARINUX 2.5 MG/0.5 ML SYRINGE SUBCUT SCH (16:22)
[2017-11-23] MEDS: MAGNESIUM HYDROXIDE SUSP 30 ML UDCUP PO PRN (17:37)
[2017-11-23] MEDS: ACETAMINOPHEN 500 MG TABLET PO PRN (21:13)
[2017-11-23] MEDS: HYDROmorphone 2 MG/1 ML VIAL IV PRN (21:17)
[2017-11-23] MEDS ORDERED: SODIUM CHLORIDE 0.9% 500 ML IV ONE (23:30)
[2017-11-24] MEDS: POTASSIUM CHLORIDE RIDER 20 MEQ in PREMIX 1 EACH IV PRN ×2 (00:22→02:26)
[2017-11-24] MEDS ORDERED: ACETAMINOPHEN INJ 1,000 MG in PREMIX 1 EACH IV ONE (01:11)
[2017-11-24] MEDS: HYDROmorphone 2 MG/1 ML VIAL IV PRN ×2 (01:21→10:45)
[2017-11-24] MEDS: INSULIN REGULAR DRIP 100 ML IV PRN ×3 (01:24→19:33)
[2017-11-24 03:59] LABS: ABG Base Excess 11.8 MMOL/L (-2.5-2.5); ABG HCO3 35.6 MMOL/L (20-26); ABG Oxygen Saturation 98.8 % (95-100); ABG PCO2 54.5 MM HG (35-48); ABG PH 7.448 (7.35-7.45); ABG TCO2 34.6 MMOL/L (23-27)
[2017-11-24] MEDS: CLINDAMYCIN INJ 900 MG in PREMIX 1 EACH IV SCH (04:36)
[2017-11-24] MEDS: THEOPHYLLINE 5.33 MG/ML 30 ML/BOTTLE NG SCH ×4 (04:58→20:11)
[2017-11-24 06:18] LABS: Basophils # 0.1 10*3/uL (0.0-0.2); Basophils % 0.5 % (0.0-0.8); Eosinophils # 0.1 10*3/uL (0.0-0.87); Eosinophils % 0.6 % (0.00-10.9); Hematocrit 28.7 VOL% (35.7-47.0); Immature Granulocytes % 3.4 %; Lymphocytes # 1.9 10*3/uL (1.4-4.0); Mean Corpuscular HGB Conc 31.4 GM/DL (32-36); Mean Corpuscular Hemoglobin 29 PG (27-34); Mean Corpuscular Volume 92.6 FL (87-102); Mean Platelet Volume 13.7 FL (9.6-12.0); Monocytes % 6.7 % (1.7-12.7); NRBC # 0.07 10*3/uL; Neutrophils # 11.1 10*3/uL (1.4-7.4); Neutrophils % 75.8 % (38.7-73.9); Platelet Count 208 T/CUMM (130-400); Red Cell Distribution Width 15.4 % (9.3-17.3); White Blood Count 14.7 T/CUMM (4-12)
[2017-11-24 06:39] LABS: Band Neutrophils 6 % (0-10); Eosinophils 2 % (0-10); Hypochromasia 1+; Lymphocytes 16 % (20-55); Segmented Neutrophils 73 % (50-85); Total Cells Counted 100
[2017-11-24 06:40] LABS: Microcytosis 1+; Polychromasia Slight
[2017-11-24 06:48] LABS: Bilirubin,Total 0.8 MG/DL (0.2-1.0); Calcium 7.9 MG/DL (8.5-10.1); Osmolality,Calculated 309.3 MOS/KG (273-304); Potassium 3.8 MMOL/L (3.5-5.1); Total Protein 6.1 G/DL (6.4-8.3)
[2017-11-24] MEDS: ALBUTEROL/IPRATROPIUM 3 ML NEB RESP TX SCH ×4 (07:46→19:57)
[2017-11-24] MEDS: FUROSEMIDE 40 MG/4 ML VIAL IV SCH ×2 (08:18→16:26)
[2017-11-24] MEDS: ACETAMINOPHEN 500 MG TABLET PO PRN ×2 (08:18→13:20)
[2017-11-24] MEDS: POTASSIUM CHLORIDE 20 MEQ/15 ML UDCUP PER TUBE SCH (08:18)
[2017-11-24] MEDS: PANTOPRAZOLE 40 MG VIAL IV SCH (08:19)
[2017-11-24] MEDS: NEOMYCIN/POLYMYXIN/BACITRACIN OINT 0.9 GM PACK TOP SCH ×2 (11:12→22:12)
[2017-11-24] MEDS ORDERED: MIDAZOLAM 2 MG/2 ML VIAL IV ONE (16:03)
[2017-11-24] MEDS: FONDAPARINUX 2.5 MG/0.5 ML SYRINGE SUBCUT SCH (16:25)
[2017-11-24] MEDS: fentaNYL INJ 1,250 MCG in SODIUM CHLORIDE 0.9% 225 ML IV PRN (16:41)
[2017-11-24] MEDS: MIDAZOLAM 100 MG in SODIUM CHLORIDE 0.9% 80 ML IV PRN (16:43)
[2017-11-25] MEDS: fentaNYL INJ 1,250 MCG in SODIUM CHLORIDE 0.9% 225 ML IV PRN ×2 (00:14→06:20)
[2017-11-25] MEDS: INSULIN REGULAR DRIP 100 ML IV PRN ×4 (02:20→22:28)
[2017-11-25 03:33] LABS: ABG Base Excess 14.7 MMOL/L (-2.5-2.5); ABG HCO3 40.5 MMOL/L (20-26); ABG Oxygen Saturation 93.4 % (95-100); ABG PCO2 57.7 MM HG (35-48); ABG PH 7.464 (7.35-7.45); ABG PO2 71.7 MM HG (80-95); ABG TCO2 42.3 MMOL/L (23-27); Allen Test Positive; Pt O2 Delivery Device Ventilator
[2017-11-25] MEDS: THEOPHYLLINE 5.33 MG/ML 30 ML/BOTTLE NG SCH ×4 (03:54→21:35)
[2017-11-25 06:41] LABS: Prealbumin 11.1 MG/DL (20-40)
[2017-11-25 07:10] LABS: Albumin 2.3 G/DL (3.4-5.0); Bilirubin,Total 0.8 MG/DL (0.2-1.0); Calcium 8.1 MG/DL (8.5-10.1); Osmolality,Calculated 308.4 MOS/KG (273-304); Potassium 4.2 MMOL/L (3.5-5.1); Total Protein 6.3 G/DL (6.4-8.3)
[2017-11-25 07:13] LABS: Basophils # 0.1 10*3/uL (0.0-0.2); Basophils % 0.7 % (0.0-0.8); Eosinophils # 0.1 10*3/uL (0.0-0.87); Eosinophils % 0.8 % (0.00-10.9); Hematocrit 30.7 VOL% (35.7-47.0); Hemoglobin 9.4 GM/DL (12.0-16.0); Immature Granulocytes % 4.5 %; Immature Granulocytes Absolute 0.64 #; Lymphocytes # 1.2 10*3/uL (1.4-4.0); Lymphocytes % 8.5 % (21.3-54.2); Mean Corpuscular HGB Conc 30.6 GM/DL (32-36); Mean Corpuscular Hemoglobin 29 PG (27-34); Mean Corpuscular Volume 94.2 FL (87-102); Mean Platelet Volume 13.5 FL (9.6-12.0); Monocytes # 0.9 10*3/uL (0.11-0.8); Monocytes % 6.4 % (1.7-12.7); Neutrophils # 11.3 10*3/uL (1.4-7.4); Neutrophils % 79.1 % (38.7-73.9); Platelet Count 276 T/CUMM (130-400); Red Blood Count 3.26 MC/CUMM (3.8-5.5); Red Cell Distribution Width 15.3 % (9.3-17.3); White Blood Count 14.3 T/CUMM (4-12)
[2017-11-25 07:31] LABS: Free T4 (Free Thyroxine) 0.73 NG/DL (0.76-1.46); Thyroid Stimulating Hormone 8.78 uIU/ml (0.358-3.74)
[2017-11-25 07:40] LABS: Band Neutrophils 2 % (0-10); Eosinophils 2 % (0-10); Hypochromasia 1+; Lymphocytes 10 % (20-55); Microcytosis 1+; Segmented Neutrophils 78 % (50-85); Total Cells Counted 100
[2017-11-25] MEDS: ALBUTEROL/IPRATROPIUM 3 ML NEB RESP TX SCH ×4 (07:40→19:16)
[2017-11-25] MEDS: PANTOPRAZOLE 40 MG VIAL IV SCH (09:23)
[2017-11-25] MEDS: POTASSIUM CHLORIDE 20 MEQ/15 ML UDCUP PER TUBE SCH (09:23)
[2017-11-25] MEDS: NEOMYCIN/POLYMYXIN/BACITRACIN OINT 0.9 GM PACK TOP SCH ×2 (09:24→21:35)
[2017-11-25] MEDS: FUROSEMIDE 40 MG/4 ML VIAL IV SCH ×2 (09:24→16:02)
[2017-11-25] MEDS: LEVOTHYROXINE 100 MCG VIAL IV SCH (11:22)
[2017-11-25] MEDS: ACETAMINOPHEN 500 MG TABLET PO PRN (11:36)
[2017-11-25] MEDS: hydrALAZINE 20 MG/1 ML VIAL IV PRN (16:02)
[2017-11-25] MEDS: FONDAPARINUX 2.5 MG/0.5 ML SYRINGE SUBCUT SCH (16:06)
[2017-11-25] MEDS ORDERED: PROPOFOL 1,000 MG/100 ML BOTTLE IV ONE (17:06)
[2017-11-25] MEDS: PROPOFOL 1,000 MG/100 ML BOTTLE IV SCH ×3 (17:10→20:21)
[2017-11-25] MEDS ORDERED: LORazepam 2 MG/1 ML VIAL ONE (17:13)
[2017-11-25] MEDS: LORazepam 2 MG/1 ML VIAL IV PRN (17:20)
[2017-11-25] MEDS: MIDAZOLAM 100 MG in SODIUM CHLORIDE 0.9% 80 ML IV PRN (17:41)
[2017-11-26] MEDS: PROPOFOL 1,000 MG/100 ML BOTTLE IV SCH ×7 (00:23→21:57)
[2017-11-26] MEDS: LORazepam 2 MG/1 ML VIAL IV PRN (00:41)
[2017-11-26] MEDS: ACETAMINOPHEN 500 MG TABLET PO PRN (00:43)
[2017-11-26] MEDS: ALBUTEROL/IPRATROPIUM 3 ML NEB RESP TX PRN (01:14)
[2017-11-26] MEDS: THEOPHYLLINE 5.33 MG/ML 30 ML/BOTTLE NG SCH ×4 (03:06→21:56)
[2017-11-26] MEDS: MORPHINE 4 MG/1 ML VIAL IV PRN (03:14)
[2017-11-26 04:02] LABS: ABG Base Excess 10.1 MMOL/L (-2.5-2.5); ABG HCO3 33.7 MMOL/L (20-26); ABG Oxygen Saturation 90.4 % (95-100); ABG PCO2 62.4 MM HG (35-48); ABG PH 7.389 (7.35-7.45); ABG PO2 64.4 MM HG (80-95); ABG TCO2 33.6 MMOL/L (23-27)
[2017-11-26 04:35] LABS: Basophils # 0.1 10*3/uL (0.0-0.2); Basophils % 0.7 % (0.0-0.8); Eosinophils % 0.1 % (0.00-10.9); Hematocrit 28.8 VOL% (35.7-47.0); Hemoglobin 9.1 GM/DL (12.0-16.0); Immature Granulocytes % 3.6 %; Immature Granulocytes Absolute 0.67 #; Lymphocytes # 1.1 10*3/uL (1.4-4.0); Mean Corpuscular HGB Conc 31.6 GM/DL (32-36); Mean Corpuscular Hemoglobin 30 PG (27-34); Mean Corpuscular Volume 94.1 FL (87-102); Mean Platelet Volume 13.2 FL (9.6-12.0); Monocytes # 1.7 10*3/uL (0.11-0.8); Monocytes % 9.1 % (1.7-12.7); NRBC # 0.34 10*3/uL; Neutrophils # 14.8 10*3/uL (1.4-7.4); Neutrophils % 80.5 % (38.7-73.9); Platelet Count 355 T/CUMM (130-400); Red Blood Count 3.06 MC/CUMM (3.8-5.5); Red Cell Distribution Width 15.6 % (9.3-17.3); White Blood Count 18.4 T/CUMM (4-12)
[2017-11-26] MEDS: MIDAZOLAM 100 MG in SODIUM CHLORIDE 0.9% 80 ML IV PRN ×2 (05:02→15:17)
[2017-11-26 05:06] LABS: Albumin 2.2 G/DL (3.4-5.0); Calcium 7.8 MG/DL (8.5-10.1); Osmolality,Calculated 312.3 MOS/KG (273-304); Potassium 3.8 MMOL/L (3.5-5.1); Total Protein 6.4 G/DL (6.4-8.3)
[2017-11-26] MEDS: LEVOTHYROXINE 100 MCG VIAL IV SCH (06:25)
[2017-11-26] MEDS ORDERED: VECURONIUM 10 MG VIAL IV ONE ×2 (07:02→07:10)
[2017-11-26] MEDS: ALBUTEROL/IPRATROPIUM 3 ML NEB RESP TX SCH ×4 (07:24→19:55)
[2017-11-26 07:39] LABS: Band Neutrophils 2 % (0-10); Hypochromasia 2+; Lymphocytes 10 % (20-55); Microcytosis 1+; Nucleated Red Blood Cells 1 (0-5); Platelet Estimate Adequate; Polychromasia Slight; Segmented Neutrophils 83 % (50-85); Total Cells Counted 100
[2017-11-26] MEDS: POTASSIUM CHLORIDE RIDER 20 MEQ in PREMIX 1 EACH IV PRN (08:00)
[2017-11-26] MEDS ORDERED: CISATRACURIUM 200 MG in SODIUM CHLORIDE 0.9% 180 ML IV SCH (08:00)
[2017-11-26] MEDS: INSULIN REGULAR DRIP 100 ML IV PRN ×2 (08:23→17:39)
[2017-11-26] MEDS: NEOMYCIN/POLYMYXIN/BACITRACIN OINT 0.9 GM PACK TOP SCH ×2 (08:27→21:56)
[2017-11-26] MEDS: PANTOPRAZOLE 40 MG VIAL IV SCH (08:27)
[2017-11-26] MEDS: VECURONIUM 100 MG in SODIUM CHLORIDE 0.9% 100 ML IV SCH ×3 (10:30→23:08)
[2017-11-26] MEDS: POTASSIUM CHLORIDE 20 MEQ/15 ML UDCUP PER TUBE SCH (11:02)
[2017-11-26] MEDS: FUROSEMIDE 40 MG/4 ML VIAL IV SCH ×2 (11:03→15:21)
[2017-11-26 11:51] LABS: ABG Base Excess 13.5 MMOL/L (-2.5-2.5); ABG HCO3 40.6 MMOL/L (20-26); ABG Oxygen Saturation 86.6 % (95-100); ABG PCO2 67.1 MM HG (35-48); ABG PO2 59.4 MM HG (80-95); ABG TCO2 42.7 MMOL/L (23-27); Allen Test Positive; Pt O2 Delivery Device Ventilator
[2017-11-26 13:33] LABS: ABG Base Excess 13.7 MMOL/L (-2.5-2.5); ABG HCO3 40.6 MMOL/L (20-26); ABG Oxygen Saturation 90.5 % (95-100); ABG PCO2 65.1 MM HG (35-48); ABG PH 7.413 (7.35-7.45); ABG PO2 65.7 MM HG (80-95); ABG TCO2 42.6 MMOL/L (23-27); Allen Test Positive; Pt O2 Delivery Device Ventilator
[2017-11-26] MEDS: FONDAPARINUX 2.5 MG/0.5 ML SYRINGE SUBCUT SCH (15:21)
[2017-11-26] MEDS: SODIUM CHLORIDE 0.9% 1,000 ML IV SCH (15:30)
[2017-11-26] MEDS ORDERED: ELECTROLYTE CONCENTRATE 20 ML, TRACE ELEMENTS (5) 1 ML, MULTIVITAMIN INJ 10 ML in AMINO... IV SCH (17:00)
[2017-11-26] MEDS ORDERED: DEXTROSE 10% 1,000 ML IV PRN (17:00)
[2017-11-26] MEDS: MEROPENEM 1,000 MG in SYRINGE 1 EACH IV SCH (18:22)
[2017-11-26] MEDS: CLINDAMYCIN INJ 900 MG in PREMIX 1 EACH IV SCH (18:23)
[2017-11-26 18:29] LABS: ABG Base Excess 13.2 MMOL/L (-2.5-2.5); ABG HCO3 36.9 MMOL/L (20-26); ABG Oxygen Saturation 87.6 % (95-100); ABG PH 7.379 (7.35-7.45); ABG PO2 58.3 MM HG (80-95); ABG TCO2 37.9 MMOL/L (23-27); Allen Test Positive; Pt O2 Delivery Device Ventilator
[2017-11-26] MEDS ORDERED: DANTROLENE 20 MG VIAL IV ONE (18:30)
[2017-11-26 18:31] LABS: ABG PCO2 69.5 MM HG (35-48)
[2017-11-26 19:18] LABS: Troponin I Only 0.203 NG/ML (0.00-0.045)
[2017-11-26 20:08] LABS: Allen Test Positive; Pt O2 Delivery Device Ventilator
[2017-11-26 20:09] LABS: ABG Base Excess 13.1 MMOL/L (-2.5-2.5); ABG HCO3 36.7 MMOL/L (20-26); ABG Oxygen Saturation 88.4 % (95-100); ABG PCO2 68.7 MM HG (35-48); ABG PH 7.389 (7.35-7.45); ABG PO2 59.1 MM HG (80-95); ABG TCO2 36.9 MMOL/L (23-27)
[2017-11-27] MEDS: CLINDAMYCIN INJ 900 MG in PREMIX 1 EACH IV SCH ×3 (01:32→17:14)
[2017-11-27] MEDS: MIDAZOLAM 100 MG in SODIUM CHLORIDE 0.9% 80 ML IV PRN ×3 (01:41→23:19)
[2017-11-27] MEDS: INSULIN REGULAR DRIP 100 ML IV PRN ×3 (02:17→19:28)
[2017-11-27] MEDS: THEOPHYLLINE 5.33 MG/ML 30 ML/BOTTLE NG SCH ×4 (02:19→21:25)
[2017-11-27] MEDS: PROPOFOL 1,000 MG/100 ML BOTTLE IV SCH ×5 (02:20→23:29)
[2017-11-27 04:06] LABS: Allen Test Positive; Pt O2 Delivery Device Ventilator
[2017-11-27 04:07] LABS: ABG Base Excess 13.1 MMOL/L (-2.5-2.5); ABG HCO3 36.9 MMOL/L (20-26); ABG Oxygen Saturation 98.3 % (95-100); ABG PH 7.321 (7.35-7.45); ABG TCO2 39.3 MMOL/L (23-27)
[2017-11-27 04:09] LABS: ABG PCO2 81.6 MM HG (35-48)
[2017-11-27 05:30] LABS: Basophils # 0.1 10*3/uL (0.0-0.2); Basophils % 0.4 % (0.0-0.8); Eosinophils % 0.2 % (0.00-10.9); Hematocrit 27.8 VOL% (35.7-47.0); Hemoglobin 8.3 GM/DL (12.0-16.0); Immature Granulocytes % 3.7 %; Immature Granulocytes Absolute 0.69 #; Lymphocytes # 1.6 10*3/uL (1.4-4.0); Lymphocytes % 8.7 % (21.3-54.2); Mean Corpuscular HGB Conc 29.9 GM/DL (32-36); Mean Corpuscular Hemoglobin 30 PG (27-34); Mean Platelet Volume 12.5 FL (9.6-12.0); Monocytes # 1.8 10*3/uL (0.11-0.8); Monocytes % 9.4 % (1.7-12.7); NRBC # 0.34 10*3/uL; Neutrophils # 14.5 10*3/uL (1.4-7.4); Neutrophils % 77.6 % (38.7-73.9); Platelet Count 312 T/CUMM (130-400); Red Blood Count 2.78 MC/CUMM (3.8-5.5); Red Cell Distribution Width 15.7 % (9.3-17.3); White Blood Count 18.7 T/CUMM (4-12)
[2017-11-27 06:19] LABS: Band Neutrophils 4 % (0-10); Hypochromasia 1+; Lymphocytes 10 % (20-55); Nucleated Red Blood Cells 2 (0-5); Segmented Neutrophils 75 % (50-85); Total Cells Counted 100
[2017-11-27 06:20] LABS: Anisocytosis 1+; Microcytosis 1+; Polychromasia Slight
[2017-11-27] MEDS: MEROPENEM 1,000 MG in SYRINGE 1 EACH IV SCH ×2 (06:22→17:12)
[2017-11-27] MEDS: VECURONIUM 100 MG in SODIUM CHLORIDE 0.9% 100 ML IV SCH ×4 (06:22→21:27)
[2017-11-27] MEDS: LEVOTHYROXINE 100 MCG VIAL IV SCH (06:26)
[2017-11-27 07:00] LABS: Albumin 2.3 G/DL (3.4-5.0); Bilirubin,Total 1.2 MG/DL (0.2-1.0); Calcium 8.3 MG/DL (8.5-10.1); Osmolality,Calculated 317.9 MOS/KG (273-304); Potassium 4.1 MMOL/L (3.5-5.1); Total Protein 6.1 G/DL (6.4-8.3)
[2017-11-27 07:22] LABS: ABG Base Excess 13.7 MMOL/L (-2.5-2.5); ABG HCO3 37.6 MMOL/L (20-26); ABG Oxygen Saturation 99.3 % (95-100); ABG PH 7.369 (7.35-7.45); ABG TCO2 38.9 MMOL/L (23-27)
[2017-11-27 07:24] LABS: ABG PCO2 71.9 MM HG (35-48)
[2017-11-27] MEDS: ALBUTEROL/IPRATROPIUM 3 ML NEB RESP TX SCH ×4 (07:35→19:38)
[2017-11-27] MEDS: SODIUM CHLORIDE 0.9% 1,000 ML IV SCH ×2 (07:43→18:21)
[2017-11-27 08:02] LABS: Troponin I Only 0.106 NG/ML (0.00-0.045)
[2017-11-27] MEDS: NEOMYCIN/POLYMYXIN/BACITRACIN OINT 0.9 GM PACK TOP SCH ×2 (08:28→21:34)
[2017-11-27] MEDS: PANTOPRAZOLE 40 MG VIAL IV SCH (08:28)
[2017-11-27] MEDS: POTASSIUM CHLORIDE 20 MEQ/15 ML UDCUP PER TUBE SCH (08:34)
[2017-11-27 08:44] LABS: ABG Base Excess 13.1 MMOL/L (-2.5-2.5); ABG HCO3 36.9 MMOL/L (20-26); ABG Oxygen Saturation 98.5 % (95-100); ABG PH 7.361 (7.35-7.45); ABG TCO2 38.2 MMOL/L (23-27)
[2017-11-27 08:45] LABS: ABG PCO2 72.6 MM HG (35-48)
[2017-11-27] MEDS: MORPHINE 4 MG/1 ML VIAL IV PRN (10:12)
[2017-11-27] MEDS ORDERED: LIDOCAINE 2% 20 ML VIAL ONE (10:20)
[2017-11-27] MEDS ORDERED: LIDOCAINE 4% TOP SOLN 50 ML BOTTLE TOP ONE (10:22)
[2017-11-27] MEDS ORDERED: LIDOCAINE 1%/EPI INJ 20 ML VIAL MISC INJ ONE (10:23)
[2017-11-27] MEDS ORDERED: EPINEPHrine 1 MG/ML VIAL IV ONE (11:00)
[2017-11-27] MEDS ORDERED: EPINEPHrine 1 MG/ML VIAL ET ONE (11:00)
[2017-11-27] MEDS: FLUTICASONE 50 MCG NASAL SPRAY 16 GM BOTTLE BOTH NARES SCH (14:07)
[2017-11-27] MEDS: ACETAMINOPHEN 500 MG TABLET PO PRN ×2 (15:05→22:28)
[2017-11-27] MEDS: FONDAPARINUX 2.5 MG/0.5 ML SYRINGE SUBCUT SCH (15:21)
[2017-11-27] MEDS: ELECTROLYTE CONCENTRATE 40 ML, TRACE ELEMENTS (5) 1 ML, MULTIVITAMIN INJ 10 ML in AMINO... IV SCH (17:31)
[2017-11-27] MEDS: OXYMETAZOLINE 0.05% NASAL SPRAY 15 ML BOTTLE BOTH NARES SCH (21:24)
[2017-11-28] MEDS: CLINDAMYCIN INJ 900 MG in PREMIX 1 EACH IV SCH ×3 (02:14→18:20)
[2017-11-28] MEDS: INSULIN REGULAR DRIP 100 ML IV PRN ×5 (02:16→22:48)
[2017-11-28] MEDS: THEOPHYLLINE 5.33 MG/ML 30 ML/BOTTLE NG SCH ×4 (02:21→20:31)
[2017-11-28] MEDS: MIDAZOLAM 100 MG in SODIUM CHLORIDE 0.9% 80 ML IV PRN ×2 (04:03→16:41)
[2017-11-28] MEDS: PROPOFOL 1,000 MG/100 ML BOTTLE IV SCH ×7 (04:04→23:48)
[2017-11-28 04:53] LABS: ABG Base Excess 13.2 MMOL/L (-2.5-2.5); ABG Oxygen Saturation 92.9 % (95-100); ABG PH 7.369 (7.35-7.45); ABG PO2 70.8 MM HG (80-95); ABG TCO2 37.4 MMOL/L (23-27); Allen Test Positive; Pt O2 Delivery Device Ventilator
[2017-11-28 04:59] LABS: Basophils # 0.1 10*3/uL (0.0-0.2); Basophils % 0.4 % (0.0-0.8); Eosinophils % 0.2 % (0.00-10.9); Hematocrit 26.2 VOL% (35.7-47.0); Hemoglobin 7.7 GM/DL (12.0-16.0); Immature Granulocytes % 7.2 %; Immature Granulocytes Absolute 1.43 #; Lymphocytes # 1.4 10*3/uL (1.4-4.0); Mean Corpuscular HGB Conc 29.4 GM/DL (32-36); Mean Corpuscular Hemoglobin 30 PG (27-34); Mean Corpuscular Volume 101.6 FL (87-102); Mean Platelet Volume 12.3 FL (9.6-12.0); Monocytes # 1.8 10*3/uL (0.11-0.8); Monocytes % 9.1 % (1.7-12.7); NRBC # 0.76 10*3/uL; Neutrophils # 15.1 10*3/uL (1.4-7.4); Neutrophils % 76.1 % (38.7-73.9); Platelet Count 335 T/CUMM (130-400); Red Blood Count 2.58 MC/CUMM (3.8-5.5); Red Cell Distribution Width 16.2 % (9.3-17.3); White Blood Count 19.8 T/CUMM (4-12)
[2017-11-28] MEDS: VECURONIUM 100 MG in SODIUM CHLORIDE 0.9% 100 ML IV SCH ×4 (05:13→23:47)
[2017-11-28 05:24] LABS: Band Neutrophils 7 % (0-10); Lymphocytes 10 % (20-55); Myelocytes 1 %; Nucleated Red Blood Cells 7 (0-5); Segmented Neutrophils 77 % (50-85); Total Cells Counted 100
[2017-11-28 05:25] LABS: Hypochromasia 1+; Microcytosis 1+; Polychromasia Slight
[2017-11-28 05:41] LABS: Albumin 2.3 G/DL (3.4-5.0); Bilirubin,Total 1.3 MG/DL (0.2-1.0); Calcium 8.5 MG/DL (8.5-10.1); Osmolality,Calculated 320.7 MOS/KG (273-304); Total Protein 6.1 G/DL (6.4-8.3)
[2017-11-28] MEDS: LEVOTHYROXINE 100 MCG VIAL IV SCH (06:05)
[2017-11-28] MEDS: MEROPENEM 1,000 MG in SYRINGE 1 EACH IV SCH ×2 (06:05→18:21)
[2017-11-28 06:32] LABS: ABG Base Excess 14.2 MMOL/L (-2.5-2.5); ABG Oxygen Saturation 95.6 % (95-100); ABG PCO2 64.4 MM HG (35-48); ABG PH 7.413 (7.35-7.45); ABG PO2 78.1 MM HG (80-95); ABG TCO2 38.4 MMOL/L (23-27)
[2017-11-28 06:33] LABS: Allen Test Positive; Pt O2 Delivery Device Ventilator
[2017-11-28] MEDS ORDERED: FUROSEMIDE 40 MG/4 ML VIAL IV ONE (07:04)
[2017-11-28] MEDS: ALBUTEROL/IPRATROPIUM 3 ML NEB RESP TX SCH ×4 (07:16→19:07)
[2017-11-28] MEDS: methylPREDNISolone SOD SUC 40 MG/1 ML VIAL IV SCH ×3 (07:27→19:16)
[2017-11-28] MEDS: PANTOPRAZOLE 40 MG VIAL IV SCH (08:18)
[2017-11-28] MEDS: ACETAMINOPHEN 500 MG TABLET PO PRN ×2 (08:19→16:06)
[2017-11-28] MEDS: FLUTICASONE 50 MCG NASAL SPRAY 16 GM BOTTLE BOTH NARES SCH (08:19)
[2017-11-28] MEDS: NEOMYCIN/POLYMYXIN/BACITRACIN OINT 0.9 GM PACK TOP SCH ×2 (08:22→20:29)
[2017-11-28] MEDS: OXYMETAZOLINE 0.05% NASAL SPRAY 15 ML BOTTLE BOTH NARES SCH ×2 (08:22→20:31)
[2017-11-28] MEDS: POTASSIUM CHLORIDE 20 MEQ/15 ML UDCUP PER TUBE SCH (08:24)
[2017-11-28] MEDS: SODIUM CHLORIDE 0.9% 1,000 ML IV SCH (08:47)
[2017-11-28] MEDS: MORPHINE 4 MG/1 ML VIAL IV PRN (10:40)
[2017-11-28] MEDS: LORazepam 2 MG/1 ML VIAL IV PRN (10:51)
[2017-11-28 11:50] LABS: ABG Base Excess 8.7 MMOL/L (-2.5-2.5); ABG HCO3 32.3 MMOL/L (20-26); ABG Oxygen Saturation 87.5 % (95-100); ABG PO2 76.9 MM HG (80-95); ABG TCO2 42.2 MMOL/L (23-27)
[2017-11-28 13:43] LABS: ABG Base Excess 11.4 MMOL/L (-2.5-2.5); ABG HCO3 35.1 MMOL/L (20-26); ABG Oxygen Saturation 99.2 % (95-100); ABG PH 7.331 (7.35-7.45); ABG TCO2 37.2 MMOL/L (23-27)
[2017-11-28 13:45] LABS: ABG PCO2 74.6 MM HG (35-48)
[2017-11-28] MEDS: FONDAPARINUX 2.5 MG/0.5 ML SYRINGE SUBCUT SCH (15:59)
[2017-11-28] MEDS: ELECTROLYTE CONCENTRATE 40 ML, TRACE ELEMENTS (5) 1 ML, MULTIVITAMIN INJ 10 ML in AMINO... IV SCH (18:20)
[2017-11-28] MEDS ORDERED: INSULIN GLARGINE 100 UNIT/ML SUBCUT SCH (21:00)
[2017-11-28] MEDS ORDERED: ACETAMINOPHEN INJ 1,000 MG in PREMIX 1 EACH IV ONE (22:00)
[2017-11-29] MEDS: methylPREDNISolone SOD SUC 40 MG/1 ML VIAL IV SCH ×4 (02:12→18:38)
[2017-11-29] MEDS: CLINDAMYCIN INJ 900 MG in PREMIX 1 EACH IV SCH ×3 (02:12→18:21)
[2017-11-29] MEDS: THEOPHYLLINE 5.33 MG/ML 30 ML/BOTTLE NG SCH ×4 (02:12→21:39)
[2017-11-29] MEDS: INSULIN REGULAR DRIP 100 ML IV PRN ×6 (02:41→22:19)
[2017-11-29] MEDS: PROPOFOL 1,000 MG/100 ML BOTTLE IV SCH ×6 (03:30→22:12)
[2017-11-29] MEDS: MIDAZOLAM 100 MG in SODIUM CHLORIDE 0.9% 80 ML IV PRN ×2 (04:15→14:17)
[2017-11-29 04:35] LABS: Basophils # 0.1 10*3/uL (0.0-0.2); Basophils % 0.4 % (0.0-0.8); Hematocrit 23.6 VOL% (35.7-47.0); Immature Granulocytes % 9.4 %; Immature Granulocytes Absolute 1.56 #; Lymphocytes # 1.2 10*3/uL (1.4-4.0); Lymphocytes % 7.3 % (21.3-54.2); Mean Corpuscular HGB Conc 29.7 GM/DL (32-36); Mean Corpuscular Hemoglobin 30 PG (27-34); Mean Corpuscular Volume 100.4 FL (87-102); Mean Platelet Volume 12.4 FL (9.6-12.0); Monocytes # 1.4 10*3/uL (0.11-0.8); Monocytes % 8.6 % (1.7-12.7); Neutrophils # 12.4 10*3/uL (1.4-7.4); Neutrophils % 74.3 % (38.7-73.9); Platelet Count 341 T/CUMM (130-400); Red Blood Count 2.35 MC/CUMM (3.8-5.5); Red Cell Distribution Width 16.7 % (9.3-17.3); White Blood Count 16.7 T/CUMM (4-12)
[2017-11-29 05:10] LABS: Albumin 2.3 G/DL (3.4-5.0); Bilirubin,Total 1.3 MG/DL (0.2-1.0); Calcium 8.4 MG/DL (8.5-10.1); Osmolality,Calculated 327.7 MOS/KG (273-304); Potassium 4.2 MMOL/L (3.5-5.1); Total Protein 6.2 G/DL (6.4-8.3)
[2017-11-29 05:11] LABS: Prealbumin 10.8 MG/DL (20-40)
[2017-11-29 05:15] LABS: ABG Base Excess 11.2 MMOL/L (-2.5-2.5); ABG Oxygen Saturation 99.9 % (95-100); ABG PCO2 58.2 MM HG (35-48); ABG PH 7.415 (7.35-7.45); ABG TCO2 35.3 MMOL/L (23-27)
[2017-11-29 05:21] LABS: Band Neutrophils 7 % (0-10); Lymphocytes 7 % (20-55); Myelocytes 2 %; Nucleated Red Blood Cells 6 (0-5); Segmented Neutrophils 77 % (50-85); Total Cells Counted 100
[2017-11-29 05:22] LABS: Hypochromasia 1+; Microcytosis 1+; Platelet Estimate Normal
[2017-11-29] MEDS: LEVOTHYROXINE 100 MCG VIAL IV SCH (06:22)
[2017-11-29] MEDS: MEROPENEM 1,000 MG in SYRINGE 1 EACH IV SCH ×2 (06:22→18:24)
[2017-11-29] MEDS: ALBUTEROL/IPRATROPIUM 3 ML NEB RESP TX SCH ×4 (07:08→19:57)
[2017-11-29] MEDS: VECURONIUM 100 MG in SODIUM CHLORIDE 0.9% 100 ML IV SCH ×2 (08:25→16:14)
[2017-11-29] MEDS: PANTOPRAZOLE 40 MG VIAL IV SCH (09:11)
[2017-11-29] MEDS: OXYMETAZOLINE 0.05% NASAL SPRAY 15 ML BOTTLE BOTH NARES SCH ×2 (09:11→21:34)
[2017-11-29] MEDS: POTASSIUM CHLORIDE 20 MEQ/15 ML UDCUP PER TUBE SCH (09:11)
[2017-11-29] MEDS: FLUTICASONE 50 MCG NASAL SPRAY 16 GM BOTTLE BOTH NARES SCH (09:11)
[2017-11-29] MEDS: NEOMYCIN/POLYMYXIN/BACITRACIN OINT 0.9 GM PACK TOP SCH ×2 (09:11→21:34)
[2017-11-29] MEDS: ACETAMINOPHEN 500 MG TABLET PO PRN ×2 (11:04→18:23)
[2017-11-29] MEDS: FONDAPARINUX 2.5 MG/0.5 ML SYRINGE SUBCUT SCH (14:48)
[2017-11-29] MEDS: ELECTROLYTE CONCENTRATE 40 ML, TRACE ELEMENTS (5) 1 ML, MULTIVITAMIN INJ 10 ML in AMINO... IV SCH (18:31)
[2017-11-29] MEDS: INSULIN GLARGINE 100 UNIT/ML SUBCUT SCH (21:35)
[2017-11-30] MEDS: VECURONIUM 100 MG in SODIUM CHLORIDE 0.9% 100 ML IV SCH ×4 (00:50→17:48)
[2017-11-30] MEDS: PROPOFOL 1,000 MG/100 ML BOTTLE IV SCH ×7 (01:47→21:19)
[2017-11-30] MEDS: MIDAZOLAM 100 MG in SODIUM CHLORIDE 0.9% 80 ML IV PRN ×3 (01:48→14:49)
[2017-11-30] MEDS: CLINDAMYCIN INJ 900 MG in PREMIX 1 EACH IV SCH ×2 (01:53→10:47)
[2017-11-30] MEDS: methylPREDNISolone SOD SUC 40 MG/1 ML VIAL IV SCH ×4 (01:53→18:32)
[2017-11-30] MEDS: INSULIN REGULAR DRIP 100 ML IV PRN ×6 (02:24→23:00)
[2017-11-30] MEDS: THEOPHYLLINE 5.33 MG/ML 30 ML/BOTTLE NG SCH ×4 (02:26→20:01)
[2017-11-30 03:06] LABS: ABG HCO3 37.7 MMOL/L (20-26); ABG Oxygen Saturation 94.2 % (95-100); ABG PCO2 67.1 MM HG (35-48); ABG PH 7.368 (7.35-7.45); ABG PO2 79.8 MM HG (80-95); ABG TCO2 39.8 MMOL/L (23-27); Allen Test Positive; Pt O2 Delivery Device Ventilator
[2017-11-30 04:57] LABS: Basophils # 0.1 10*3/uL (0.0-0.2); Basophils % 0.3 % (0.0-0.8); Hematocrit 24.6 VOL% (35.7-47.0); Hemoglobin 7.2 GM/DL (12.0-16.0); Immature Granulocytes % 9.5 %; Immature Granulocytes Absolute 1.58 #; Lymphocytes # 0.9 10*3/uL (1.4-4.0); Lymphocytes % 5.2 % (21.3-54.2); Mean Corpuscular HGB Conc 29.3 GM/DL (32-36); Mean Corpuscular Hemoglobin 30 PG (27-34); Mean Corpuscular Volume 101.2 FL (87-102); Mean Platelet Volume 12.1 FL (9.6-12.0); Monocytes # 1.5 10*3/uL (0.11-0.8); Monocytes % 8.9 % (1.7-12.7); NRBC # 1.12 10*3/uL; Neutrophils # 12.7 10*3/uL (1.4-7.4); Neutrophils % 76.1 % (38.7-73.9); Platelet Count 379 T/CUMM (130-400); Red Blood Count 2.43 MC/CUMM (3.8-5.5); Red Cell Distribution Width 17.2 % (9.3-17.3); White Blood Count 16.7 T/CUMM (4-12)
[2017-11-30 05:17] LABS: Albumin 2.4 G/DL (3.4-5.0); Bilirubin,Total 2.3 MG/DL (0.2-1.0); Calcium 8.7 MG/DL (8.5-10.1); Osmolality,Calculated 333.6 MOS/KG (273-304); Potassium 4.2 MMOL/L (3.5-5.1); Total Protein 6.6 G/DL (6.4-8.3)
[2017-11-30 05:20] LABS: Band Neutrophils 6 % (0-10); Lymphocytes 12 % (20-55); Macrocytosis 3+; Nucleated Red Blood Cells 9 (0-5); Platelet Estimate Normal; Segmented Neutrophils 72 % (50-85); Total Cells Counted 100
[2017-11-30] MEDS: ALBUTEROL/IPRATROPIUM 3 ML NEB RESP TX PRN (05:39)
[2017-11-30 06:14] LABS: ABG PCO2 73.9 MM HG (35-48)
[2017-11-30] MEDS: MEROPENEM 1,000 MG in SYRINGE 1 EACH IV SCH ×2 (06:16→18:16)
[2017-11-30] MEDS: LEVOTHYROXINE 100 MCG VIAL IV SCH (06:16)
[2017-11-30 07:37] LABS: ABG Base Excess 7.9 MMOL/L (-2.5-2.5); ABG HCO3 31.7 MMOL/L (20-26); ABG Oxygen Saturation 99.3 % (95-100); ABG PH 7.312 (7.35-7.45); ABG TCO2 33.9 MMOL/L (23-27); Pt O2 Delivery Device Ventilator
[2017-11-30 07:39] LABS: ABG PCO2 70.6 MM HG (35-48)
[2017-11-30] MEDS: ALBUTEROL/IPRATROPIUM 3 ML NEB RESP TX SCH ×4 (07:41→19:23)
[2017-11-30] MEDS ORDERED: EPINEPHrine 1 MG/ML VIAL ONE (09:54)
[2017-11-30] MEDS: PANTOPRAZOLE 40 MG VIAL IV SCH (11:00)
[2017-11-30] MEDS: OXYMETAZOLINE 0.05% NASAL SPRAY 15 ML BOTTLE BOTH NARES SCH ×2 (14:25→20:00)
[2017-11-30] MEDS: NEOMYCIN/POLYMYXIN/BACITRACIN OINT 0.9 GM PACK TOP SCH ×2 (14:45→20:00)
[2017-11-30] MEDS: POTASSIUM CHLORIDE 20 MEQ/15 ML UDCUP PER TUBE SCH (14:45)
[2017-11-30] MEDS: FLUTICASONE 50 MCG NASAL SPRAY 16 GM BOTTLE BOTH NARES SCH (14:45)
[2017-11-30] MEDS: DEXTROSE 5% 1,000 ML IV SCH (15:02)
[2017-11-30] MEDS: FONDAPARINUX 2.5 MG/0.5 ML SYRINGE SUBCUT SCH (15:06)
[2017-11-30] MEDS: LINEZOLID INJ 600 MG in PREMIX 1 EACH IV SCH (18:15)
[2017-11-30] MEDS: ELECTROLYTE CONCENTRATE 40 ML, TRACE ELEMENTS (5) 1 ML, MULTIVITAMIN INJ 10 ML in AMINO... IV SCH (18:20)
[2017-11-30] MEDS: INSULIN GLARGINE 100 UNIT/ML SUBCUT SCH (20:00)
[2017-12-01] MEDS: hydrALAZINE 20 MG/1 ML VIAL IV PRN ×2 (01:01→12:07)
[2017-12-01] MEDS: methylPREDNISolone SOD SUC 40 MG/1 ML VIAL IV SCH ×4 (01:01→18:30)
[2017-12-01] MEDS: INSULIN REGULAR DRIP 100 ML IV PRN ×3 (03:36→14:33)
[2017-12-01] MEDS: THEOPHYLLINE 5.33 MG/ML 30 ML/BOTTLE NG SCH ×4 (03:37→21:29)
[2017-12-01 03:47] LABS: ABG Base Excess 8.4 MMOL/L (-2.5-2.5); ABG HCO3 32.2 MMOL/L (20-26); ABG Oxygen Saturation 98.8 % (95-100); ABG PH 7.404 (7.35-7.45); ABG TCO2 32.3 MMOL/L (23-27); Allen Test Positive; Pt O2 Delivery Device Ventilator
[2017-12-01] MEDS: DEXTROSE 5% 1,000 ML IV SCH ×2 (05:09→18:40)
[2017-12-01 05:24] LABS: Basophils % 0.3 % (0.0-0.8); Hemoglobin 7.4 GM/DL (12.0-16.0); Immature Granulocytes % 10.1 %; Immature Granulocytes Absolute 1.44 #; Lymphocytes # 0.7 10*3/uL (1.4-4.0); Lymphocytes % 5.2 % (21.3-54.2); Mean Corpuscular HGB Conc 30.8 GM/DL (32-36); Mean Corpuscular Hemoglobin 30 PG (27-34); Mean Platelet Volume 12.5 FL (9.6-12.0); Monocytes # 1.4 10*3/uL (0.11-0.8); Monocytes % 10.1 % (1.7-12.7); NRBC # 1.15 10*3/uL; Neutrophils # 10.6 10*3/uL (1.4-7.4); Neutrophils % 74.3 % (38.7-73.9); Platelet Count 391 T/CUMM (130-400); Red Blood Count 2.45 MC/CUMM (3.8-5.5); Red Cell Distribution Width 16.9 % (9.3-17.3); White Blood Count 14.2 T/CUMM (4-12)
[2017-12-01 05:51] LABS: Band Neutrophils 7 % (0-10); Lymphocytes 8 % (20-55); Nucleated Red Blood Cells 12 (0-5); Segmented Neutrophils 74 % (50-85); Total Cells Counted 100
[2017-12-01 05:52] LABS: Giant Platelets Few; Hypochromasia 1+; Macrocytosis Slight; Platelet Estimate Adequate; Polychromasia Slight
[2017-12-01] MEDS: LINEZOLID INJ 600 MG in PREMIX 1 EACH IV SCH ×2 (05:59→17:08)
[2017-12-01] MEDS: MEROPENEM 1,000 MG in SYRINGE 1 EACH IV SCH ×3 (05:59→21:33)
[2017-12-01 06:00] LABS: Albumin 2.4 G/DL (3.4-5.0); Bilirubin,Total 2.1 MG/DL (0.2-1.0); Calcium 8.3 MG/DL (8.5-10.1); Osmolality,Calculated 338.3 MOS/KG (273-304); Potassium 4.4 MMOL/L (3.5-5.1); Total Protein 6.4 G/DL (6.4-8.3)
[2017-12-01] MEDS: LEVOTHYROXINE 100 MCG VIAL IV SCH (06:00)
[2017-12-01] MEDS: ALBUTEROL/IPRATROPIUM 3 ML NEB RESP TX SCH ×4 (07:20→19:08)
[2017-12-01] MEDS: FUROSEMIDE 40 MG/4 ML VIAL IV SCH ×3 (08:25→21:29)
[2017-12-01] MEDS: POTASSIUM CHLORIDE 20 MEQ/15 ML UDCUP PER TUBE SCH (08:28)
[2017-12-01] MEDS: PANTOPRAZOLE 40 MG VIAL IV SCH (08:29)
[2017-12-01] MEDS: FLUTICASONE 50 MCG NASAL SPRAY 16 GM BOTTLE BOTH NARES SCH (08:29)
[2017-12-01] MEDS: NEOMYCIN/POLYMYXIN/BACITRACIN OINT 0.9 GM PACK TOP SCH ×2 (08:29→21:33)
[2017-12-01] MEDS: VECURONIUM 100 MG in SODIUM CHLORIDE 0.9% 100 ML IV SCH (10:16)
[2017-12-01] MEDS: ACETAMINOPHEN 500 MG TABLET PO PRN (14:28)
[2017-12-01] MEDS: MORPHINE 4 MG/1 ML VIAL IV PRN (14:38)
[2017-12-01] MEDS: FONDAPARINUX 2.5 MG/0.5 ML SYRINGE SUBCUT SCH (14:39)
[2017-12-01] MEDS: PROPOFOL 1,000 MG/100 ML BOTTLE IV SCH (16:30)
[2017-12-01] MEDS: ELECTROLYTE CONCENTRATE 40 ML, TRACE ELEMENTS (5) 1 ML, MULTIVITAMIN INJ 10 ML, INSULIN... IV SCH (16:33)
[2017-12-01] MEDS: DESITIN 4OZ/NYSTATIN 15 GRAM MIXTURE PASTE TOP SCH (16:33)
[2017-12-01] MEDS: INSULIN GLARGINE 100 UNIT/ML SUBCUT SCH ×2 (17:22→20:14)
[2017-12-01] MEDS ORDERED: INSULIN GLARGINE 100 UNIT/ML SUBCUT SCH (21:00)
[2017-12-01] MEDS: INSULIN LISPRO 100 UNIT/ML SUBCUT SCH (21:29)
[2017-12-02] MEDS: hydrALAZINE 20 MG/1 ML VIAL IV PRN (00:28)
[2017-12-02] MEDS: ACETAMINOPHEN 500 MG TABLET PO PRN ×2 (00:47→21:17)
[2017-12-02] MEDS: methylPREDNISolone SOD SUC 40 MG/1 ML VIAL IV SCH ×4 (00:49→21:14)
[2017-12-02] MEDS: INSULIN LISPRO 100 UNIT/ML SUBCUT SCH ×6 (00:52→21:15)
[2017-12-02] MEDS: LORazepam 2 MG/1 ML VIAL IV PRN (01:16)
[2017-12-02] MEDS: MORPHINE 4 MG/1 ML VIAL IV PRN (01:19)
[2017-12-02] MEDS: THEOPHYLLINE 5.33 MG/ML 30 ML/BOTTLE NG SCH ×4 (04:53→21:17)
[2017-12-02] MEDS: DESITIN 4OZ/NYSTATIN 15 GRAM MIXTURE PASTE TOP SCH ×3 (04:53→21:17)
[2017-12-02 05:05] LABS: ABG Base Excess 7.6 MMOL/L (-2.5-2.5); ABG HCO3 31.4 MMOL/L (20-26); ABG Oxygen Saturation 96.6 % (95-100); ABG PCO2 54.6 MM HG (35-48); ABG PH 7.402 (7.35-7.45); ABG PO2 93.3 MM HG (80-95); ABG TCO2 30.6 MMOL/L (23-27); Allen Test Positive; Pt O2 Delivery Device Ventilator
[2017-12-02 05:32] LABS: Basophils # 0.1 10*3/uL (0.0-0.2); Basophils % 0.3 % (0.0-0.8); Hematocrit 26.7 VOL% (35.7-47.0); Hemoglobin 8.1 GM/DL (12.0-16.0); Immature Granulocytes % 10.7 %; Immature Granulocytes Absolute 1.83 #; Lymphocytes # 0.7 10*3/uL (1.4-4.0); Lymphocytes % 4.1 % (21.3-54.2); Mean Corpuscular HGB Conc 30.3 GM/DL (32-36); Mean Corpuscular Hemoglobin 30 PG (27-34); Mean Corpuscular Volume 98.9 FL (87-102); Mean Platelet Volume 12.4 FL (9.6-12.0); Monocytes # 1.4 10*3/uL (0.11-0.8); Monocytes % 8.4 % (1.7-12.7); NRBC # 0.88 10*3/uL; Neutrophils # 13.1 10*3/uL (1.4-7.4); Neutrophils % 76.5 % (38.7-73.9); Platelet Count 389 T/CUMM (130-400); Red Cell Distribution Width 17.5 % (9.3-17.3); White Blood Count 17.1 T/CUMM (4-12)
[2017-12-02 05:47] LABS: Albumin 2.9 G/DL (3.4-5.0); Bilirubin,Total 1.8 MG/DL (0.2-1.0); Calcium 7.7 MG/DL (8.5-10.1); Osmolality,Calculated 348.6 MOS/KG (273-304); Potassium 4.4 MMOL/L (3.5-5.1); Total Protein 6.3 G/DL (6.4-8.3)
[2017-12-02 05:55] LABS: Anisocytosis Slight; Band Neutrophils 6 % (0-10); Lymphocytes 3 % (20-55); Macrocytosis 2+; Nucleated Red Blood Cells 6 (0-5); Platelet Estimate Normal; Segmented Neutrophils 78 % (50-85); Total Cells Counted 100
[2017-12-02] MEDS: MEROPENEM 1,000 MG in SYRINGE 1 EACH IV SCH ×3 (06:22→21:30)
[2017-12-02] MEDS: LINEZOLID INJ 600 MG in PREMIX 1 EACH IV SCH ×2 (06:23→17:56)
[2017-12-02] MEDS: LEVOTHYROXINE 100 MCG VIAL IV SCH (06:23)
[2017-12-02] MEDS: ALBUTEROL/IPRATROPIUM 3 ML NEB RESP TX SCH ×4 (07:47→20:14)
[2017-12-02] MEDS: DEXTROSE 5% 1,000 ML IV SCH (09:18)
[2017-12-02] MEDS: PANTOPRAZOLE 40 MG VIAL IV SCH (09:19)
[2017-12-02] MEDS: FUROSEMIDE 40 MG/4 ML VIAL IV SCH ×3 (09:19→21:13)
[2017-12-02] MEDS: POTASSIUM CHLORIDE 20 MEQ/15 ML UDCUP PER TUBE SCH (09:19)
[2017-12-02] MEDS: FLUTICASONE 50 MCG NASAL SPRAY 16 GM BOTTLE BOTH NARES SCH (09:20)
[2017-12-02] MEDS: INSULIN GLARGINE 100 UNIT/ML SUBCUT SCH ×2 (09:20→21:15)
[2017-12-02] MEDS: NEOMYCIN/POLYMYXIN/BACITRACIN OINT 0.9 GM PACK TOP SCH ×2 (09:21→21:17)
[2017-12-02] MEDS ORDERED: NEOMYCIN/POLYMYXIN/BACITRACIN OINT 28.4 GM TUBE TOP ONE (10:27)
[2017-12-02] MEDS: VECURONIUM 100 MG in SODIUM CHLORIDE 0.9% 100 ML IV SCH (11:46)
[2017-12-02] MEDS ORDERED: MIDAZOLAM 2 MG/2 ML VIAL ONE ×2 (12:40→13:43)
[2017-12-02] MEDS ORDERED: SEVOFLURANE 1 UNIT/15 MINUTE INH ONE (13:45)
[2017-12-02] MEDS ORDERED: PROPOFOL 200 MG/20 ML VIAL IV ONE (13:45)
[2017-12-02] MEDS ORDERED: PHENYLEPHRINE 10 MG/1 ML VIAL IV ONE (13:45)
[2017-12-02] MEDS ORDERED: ROCURONIUM 100 MG/10 ML VIAL IV ONE (13:46)
[2017-12-02] MEDS: FONDAPARINUX 2.5 MG/0.5 ML SYRINGE SUBCUT SCH (15:08)
[2017-12-02] MEDS: PROPOFOL 1,000 MG/100 ML BOTTLE IV SCH (17:37)
[2017-12-02] MEDS: ELECTROLYTE CONCENTRATE 40 ML, TRACE ELEMENTS (5) 1 ML, MULTIVITAMIN INJ 10 ML, INSULIN... IV SCH (17:56)
[2017-12-03] MEDS: methylPREDNISolone SOD SUC 40 MG/1 ML VIAL IV SCH ×4 (00:42→20:03)
[2017-12-03] MEDS: INSULIN LISPRO 100 UNIT/ML SUBCUT SCH ×6 (00:43→20:29)
[2017-12-03] MEDS: MORPHINE 4 MG/1 ML VIAL IV PRN ×2 (00:44→20:48)
[2017-12-03] MEDS: THEOPHYLLINE 5.33 MG/ML 30 ML/BOTTLE NG SCH ×4 (03:15→22:06)
[2017-12-03] MEDS: ACETAMINOPHEN 500 MG TABLET PO PRN ×2 (03:15→12:53)
[2017-12-03 04:42] LABS: ABG Base Excess 10.2 MMOL/L (-2.5-2.5); ABG HCO3 33.9 MMOL/L (20-26); ABG Oxygen Saturation 99.3 % (95-100); ABG PCO2 51.1 MM HG (35-48); Allen Test Positive; Pt O2 Delivery Device Ventilator
[2017-12-03 04:44] LABS: Basophils % 0.2 % (0.0-0.8); Hematocrit 27.5 VOL% (35.7-47.0); Hemoglobin 8.3 GM/DL (12.0-16.0); Immature Granulocytes Absolute 1.02 #; Lymphocytes # 0.7 10*3/uL (1.4-4.0); Lymphocytes % 4.2 % (21.3-54.2); Mean Corpuscular HGB Conc 30.2 GM/DL (32-36); Mean Corpuscular Hemoglobin 29 PG (27-34); Mean Corpuscular Volume 97.5 FL (87-102); Mean Platelet Volume 12.7 FL (9.6-12.0); Monocytes # 1.5 10*3/uL (0.11-0.8); Monocytes % 8.6 % (1.7-12.7); NRBC # 0.62 10*3/uL; Neutrophils # 13.9 10*3/uL (1.4-7.4); Platelet Count 356 T/CUMM (130-400); Red Blood Count 2.82 MC/CUMM (3.8-5.5); Red Cell Distribution Width 17.8 % (9.3-17.3); White Blood Count 17.1 T/CUMM (4-12)
[2017-12-03 05:14] LABS: Band Neutrophils 4 % (0-10); Lymphocytes 8 % (20-55); Nucleated Red Blood Cells 3 (0-5); Segmented Neutrophils 76 % (50-85); Total Cells Counted 100
[2017-12-03 05:15] LABS: Hypochromasia 1+; Macrocytosis Slight; Ovalocytes Slight; Platelet Estimate Adequate
[2017-12-03 05:16] LABS: Polychromasia Slight
[2017-12-03 05:28] LABS: Albumin 2.9 G/DL (3.4-5.0); Bilirubin,Total 2.4 MG/DL (0.2-1.0); Calcium 7.8 MG/DL (8.5-10.1); Osmolality,Calculated 346.4 MOS/KG (273-304); Potassium 4.6 MMOL/L (3.5-5.1); Total Protein 6.5 G/DL (6.4-8.3)
[2017-12-03] MEDS: MEROPENEM 1,000 MG in SYRINGE 1 EACH IV SCH ×3 (05:49→22:00)
[2017-12-03] MEDS: LEVOTHYROXINE 100 MCG VIAL IV SCH (06:00)
[2017-12-03] MEDS: LINEZOLID INJ 600 MG in PREMIX 1 EACH IV SCH ×2 (06:14→18:10)
[2017-12-03] MEDS: ALBUTEROL/IPRATROPIUM 3 ML NEB RESP TX SCH ×4 (08:21→19:35)
[2017-12-03] MEDS: POTASSIUM CHLORIDE 20 MEQ/15 ML UDCUP PER TUBE SCH (09:00)
[2017-12-03] MEDS ORDERED: INSULIN REGULAR ** CONC 500 UNIT/ML ** 20 ML VIAL SUBCUT SCH ×2 (09:00→11:30)
[2017-12-03] MEDS: FUROSEMIDE 40 MG/4 ML VIAL IV SCH (09:00)
[2017-12-03] MEDS: PANTOPRAZOLE 40 MG VIAL IV SCH (09:01)
[2017-12-03] MEDS: INSULIN REGULAR ** CONC 500 UNIT/ML ** 20 ML VIAL SUBCUT SCH ×2 (09:01→16:04)
[2017-12-03] MEDS: NEOMYCIN/POLYMYXIN/BACITRACIN OINT 0.9 GM PACK TOP SCH ×2 (09:02→22:09)
[2017-12-03] MEDS: FLUTICASONE 50 MCG NASAL SPRAY 16 GM BOTTLE BOTH NARES SCH (09:02)
[2017-12-03] MEDS: DESITIN 4OZ/NYSTATIN 15 GRAM MIXTURE PASTE TOP SCH ×2 (09:03→22:09)
[2017-12-03] MEDS: VECURONIUM 100 MG in SODIUM CHLORIDE 0.9% 100 ML IV SCH (12:05)
[2017-12-03] MEDS ORDERED: ERYTHROMYCIN INJ 500 MG in SODIUM CHLORIDE 0.9% 100 ML IV SCH (13:00)
[2017-12-03] MEDS: FONDAPARINUX 2.5 MG/0.5 ML SYRINGE SUBCUT SCH (15:18)
[2017-12-03] MEDS: ACETAMINOPHEN 325 MG TABLET PO PRN (15:52)
[2017-12-03] MEDS: MULTIVITAMIN IV SCH (20:00)
[2017-12-03] MEDS: ELECTROLYTE IV SCH (20:00)
[2017-12-03] MEDS: [UNRECOGNIZED DRUG - OTHER] IV SCH (20:00)
[2017-12-03] MEDS: INSULIN REGULAR IV SCH (20:00)
[2017-12-03] MEDS: LORazepam 2 MG/1 ML VIAL IV PRN (20:18)
[2017-12-03] MEDS ORDERED: INSULIN GLARGINE 100 UNIT/ML SUBCUT SCH (21:00)
[2017-12-03] MEDS: MIDAZOLAM 100 MG in SODIUM CHLORIDE 0.9% 80 ML IV PRN (21:45)
[2017-12-04] MEDS: methylPREDNISolone SOD SUC 40 MG/1 ML VIAL IV SCH ×4 (00:59→20:42)
[2017-12-04] MEDS: INSULIN REGULAR ** CONC 500 UNIT/ML ** 20 ML VIAL SUBCUT SCH ×3 (01:01→16:37)
[2017-12-04] MEDS: INSULIN LISPRO 100 UNIT/ML SUBCUT SCH ×6 (01:01→20:45)
[2017-12-04] MEDS: ACETAMINOPHEN 500 MG TABLET PO PRN ×2 (01:35→07:34)
[2017-12-04 03:50] LABS: ABG HCO3 32.7 MMOL/L (20-26); ABG Oxygen Saturation 96.1 % (95-100); ABG PCO2 50.6 MM HG (35-48); ABG PH 7.442 (7.35-7.45); ABG TCO2 31.3 MMOL/L (23-27); Allen Test Positive; Pt O2 Delivery Device Ventilator
[2017-12-04] MEDS: THEOPHYLLINE 5.33 MG/ML 30 ML/BOTTLE NG SCH ×4 (04:07→20:46)
[2017-12-04 04:25] LABS: Basophils % 0.2 % (0.0-0.8); Hematocrit 28.1 VOL% (35.7-47.0); Hemoglobin 8.5 GM/DL (12.0-16.0); Immature Granulocytes % 5.1 %; Immature Granulocytes Absolute 0.82 #; Lymphocytes % 6.3 % (21.3-54.2); Mean Corpuscular HGB Conc 30.2 GM/DL (32-36); Mean Corpuscular Hemoglobin 30 PG (27-34); Mean Corpuscular Volume 99.6 FL (87-102); Mean Platelet Volume 13.2 FL (9.6-12.0); Monocytes # 1.5 10*3/uL (0.11-0.8); Monocytes % 9.3 % (1.7-12.7); NRBC # 0.49 10*3/uL; Neutrophils # 12.8 10*3/uL (1.4-7.4); Neutrophils % 79.1 % (38.7-73.9); Platelet Count 247 T/CUMM (130-400); Red Blood Count 2.82 MC/CUMM (3.8-5.5); Red Cell Distribution Width 18.3 % (9.3-17.3); White Blood Count 16.2 T/CUMM (4-12)
[2017-12-04] MEDS: MIDAZOLAM 100 MG in SODIUM CHLORIDE 0.9% 80 ML IV PRN ×3 (04:25→17:32)
[2017-12-04 04:49] LABS: Albumin 2.8 G/DL (3.4-5.0); Bilirubin,Total 3.3 MG/DL (0.2-1.0); Calcium 7.8 MG/DL (8.5-10.1); Osmolality,Calculated 344.3 MOS/KG (273-304); Potassium 4.6 MMOL/L (3.5-5.1); Total Protein 6.7 G/DL (6.4-8.3)
[2017-12-04] MEDS: PROPOFOL 1,000 MG/100 ML BOTTLE IV SCH ×2 (05:39→16:44)
[2017-12-04] MEDS: MEROPENEM 1,000 MG in SYRINGE 1 EACH IV SCH ×3 (05:46→21:00)
[2017-12-04] MEDS: LINEZOLID INJ 600 MG in PREMIX 1 EACH IV SCH ×2 (05:49→17:34)
[2017-12-04 06:20] LABS: Hypochromasia 2+; Lymphocytes 7 % (20-55); Microcytosis 1+; Nucleated Red Blood Cells 2 (0-5); Platelet Estimate Adequate; Segmented Neutrophils 79 % (50-85); Spherocytes Few; Total Cells Counted 100
[2017-12-04] MEDS: LEVOTHYROXINE 100 MCG VIAL IV SCH (06:29)
[2017-12-04] MEDS: ALBUTEROL/IPRATROPIUM 3 ML NEB RESP TX SCH ×4 (07:50→20:08)
[2017-12-04] MEDS ORDERED: INSULIN GLARGINE 100 UNIT/ML SUBCUT SCH (08:40)
[2017-12-04] MEDS ORDERED: IBUPROFEN 100 MG/5 ML UDCUP PO ONE (08:41)
[2017-12-04] MEDS: POTASSIUM CHLORIDE 20 MEQ/15 ML UDCUP PER TUBE SCH (08:52)
[2017-12-04] MEDS: PANTOPRAZOLE 40 MG VIAL IV SCH (08:53)
[2017-12-04] MEDS: DESITIN 4OZ/NYSTATIN 15 GRAM MIXTURE PASTE TOP SCH ×2 (08:56→21:00)
[2017-12-04] MEDS: NEOMYCIN/POLYMYXIN/BACITRACIN OINT 0.9 GM PACK TOP SCH ×2 (08:56→21:00)
[2017-12-04] MEDS: FLUTICASONE 50 MCG NASAL SPRAY 16 GM BOTTLE BOTH NARES SCH (08:56)
[2017-12-04] MEDS ORDERED: INSULIN GLARGINE 100 UNIT/ML SUBCUT ONE (09:00)
[2017-12-04] MEDS: VECURONIUM 100 MG in SODIUM CHLORIDE 0.9% 100 ML IV SCH (13:19)
[2017-12-04] MEDS: FONDAPARINUX 2.5 MG/0.5 ML SYRINGE SUBCUT SCH (14:36)
[2017-12-04] MEDS: INSULIN REGULAR IV SCH (16:38)
[2017-12-04] MEDS: MULTIVITAMIN IV SCH (16:38)
[2017-12-04] MEDS: [UNRECOGNIZED DRUG - OTHER] IV SCH (16:38)
[2017-12-04] MEDS: ELECTROLYTE IV SCH (16:38)
[2017-12-05] MEDS: methylPREDNISolone SOD SUC 40 MG/1 ML VIAL IV SCH ×4 (00:32→15:22)
[2017-12-05] MEDS: INSULIN LISPRO 100 UNIT/ML SUBCUT SCH ×6 (00:33→20:56)
[2017-12-05] MEDS: INSULIN REGULAR ** CONC 500 UNIT/ML ** 20 ML VIAL SUBCUT SCH ×4 (00:33→16:50)
[2017-12-05 03:53] LABS: Allen Test Positive; Pt O2 Delivery Device Ventilator
[2017-12-05 03:58] LABS: ABG Base Excess 8.8 MMOL/L (-2.5-2.5); ABG HCO3 34.7 MMOL/L (20-26); ABG Oxygen Saturation 98.6 % (95-100); ABG PCO2 56.8 MM HG (35-48); ABG PH 7.404 (7.35-7.45); ABG PO2 187.4 MM HG (80-95); ABG TCO2 36.5 MMOL/L (23-27)
[2017-12-05] MEDS: THEOPHYLLINE 5.33 MG/ML 30 ML/BOTTLE NG SCH ×4 (04:00→20:57)
[2017-12-05 04:30] LABS: Basophils % 0.2 % (0.0-0.8); Hematocrit 26.9 VOL% (35.7-47.0); Immature Granulocytes Absolute 0.48 #; Lymphocytes # 0.6 10*3/uL (1.4-4.0); Lymphocytes % 3.8 % (21.3-54.2); Mean Corpuscular HGB Conc 29.7 GM/DL (32-36); Mean Corpuscular Hemoglobin 30 PG (27-34); Mean Corpuscular Volume 102.3 FL (87-102); Mean Platelet Volume 13.8 FL (9.6-12.0); Monocytes % 6.4 % (1.7-12.7); NRBC # 0.31 10*3/uL; Neutrophils # 13.8 10*3/uL (1.4-7.4); Neutrophils % 86.6 % (38.7-73.9); Platelet Count 165 T/CUMM (130-400); Red Blood Count 2.63 MC/CUMM (3.8-5.5); Red Cell Distribution Width 17.2 % (9.3-17.3); White Blood Count 15.9 T/CUMM (4-12)
[2017-12-05 05:06] LABS: Bilirubin,Total 2.5 MG/DL (0.2-1.0); Calcium 7.6 MG/DL (8.5-10.1); Osmolality,Calculated 345.9 MOS/KG (273-304); Potassium 4.2 MMOL/L (3.5-5.1); Total Protein 5.9 G/DL (6.4-8.3)
[2017-12-05 06:37] LABS: Band Neutrophils 16 % (0-10); Lymphocytes 3 % (20-55); Nucleated Red Blood Cells 1 (0-5); Segmented Neutrophils 79 % (50-85); Total Cells Counted 100
[2017-12-05 06:38] LABS: Anisocytosis 1+; Basophilic Stippling 1+; Polychromasia 1+
[2017-12-05] MEDS: LINEZOLID INJ 600 MG in PREMIX 1 EACH IV SCH ×2 (06:45→18:44)
[2017-12-05] MEDS: MEROPENEM 1,000 MG in SYRINGE 1 EACH IV SCH ×3 (06:46→20:59)
[2017-12-05] MEDS: LEVOTHYROXINE 100 MCG VIAL IV SCH (06:49)
[2017-12-05] MEDS: MIDAZOLAM 100 MG in SODIUM CHLORIDE 0.9% 80 ML IV PRN (07:12)
[2017-12-05] MEDS: ALBUTEROL/IPRATROPIUM 3 ML NEB RESP TX SCH ×4 (07:44→20:12)
[2017-12-05] MEDS ORDERED: INSULIN REGULAR ** CONC 500 UNIT/ML ** 20 ML VIAL SUBCUT SCH (08:43)
[2017-12-05] MEDS: INSULIN GLARGINE 100 UNIT/ML SUBCUT SCH ×2 (09:33→20:57)
[2017-12-05] MEDS: POTASSIUM CHLORIDE 20 MEQ/15 ML UDCUP PER TUBE SCH (09:33)
[2017-12-05] MEDS: PANTOPRAZOLE 40 MG VIAL IV SCH (09:34)
[2017-12-05] MEDS: FLUTICASONE 50 MCG NASAL SPRAY 16 GM BOTTLE BOTH NARES SCH (09:39)
[2017-12-05] MEDS: DESITIN 4OZ/NYSTATIN 15 GRAM MIXTURE PASTE TOP SCH ×2 (09:40→20:58)
[2017-12-05] MEDS: NEOMYCIN/POLYMYXIN/BACITRACIN OINT 0.9 GM PACK TOP SCH ×2 (09:41→20:57)
[2017-12-05] MEDS: VECURONIUM 100 MG in SODIUM CHLORIDE 0.9% 100 ML IV SCH (10:12)
[2017-12-05] MEDS: FONDAPARINUX 2.5 MG/0.5 ML SYRINGE SUBCUT SCH (15:22)
[2017-12-05] MEDS: ELECTROLYTE IV SCH (17:02)
[2017-12-05] MEDS: [UNRECOGNIZED DRUG - OTHER] IV SCH (17:02)
[2017-12-05] MEDS: INSULIN REGULAR IV SCH (17:02)
[2017-12-05] MEDS: MULTIVITAMIN IV SCH (17:02)
[2017-12-05] MEDS: PROPOFOL 1,000 MG/100 ML BOTTLE IV SCH (18:38)
[2017-12-06] MEDS: INSULIN REGULAR ** CONC 500 UNIT/ML ** 20 ML VIAL SUBCUT SCH ×3 (00:30→17:03)
[2017-12-06] MEDS: methylPREDNISolone SOD SUC 40 MG/1 ML VIAL IV SCH ×3 (00:30→20:39)
[2017-12-06] MEDS: INSULIN LISPRO 100 UNIT/ML SUBCUT SCH ×6 (00:31→20:38)
[2017-12-06 03:23] LABS: ABG Base Excess 7.8 MMOL/L (-2.5-2.5); ABG HCO3 33.4 MMOL/L (20-26); ABG Oxygen Saturation 97.3 % (95-100); ABG PH 7.417 (7.35-7.45); ABG PO2 110.6 MM HG (80-95); Allen Test Positive; Pt O2 Delivery Device Ventilator
[2017-12-06] MEDS: THEOPHYLLINE 5.33 MG/ML 30 ML/BOTTLE NG SCH ×4 (04:00→20:40)
[2017-12-06] MEDS: MIDAZOLAM 100 MG in SODIUM CHLORIDE 0.9% 80 ML IV PRN (04:45)
[2017-12-06 04:59] LABS: Basophils # 0.1 10*3/uL (0.0-0.2); Basophils % 0.2 % (0.0-0.8); Hematocrit 26.8 VOL% (35.7-47.0); Hemoglobin 8.3 GM/DL (12.0-16.0); Immature Granulocytes % 4.9 %; Lymphocytes # 0.6 10*3/uL (1.4-4.0); Lymphocytes % 2.6 % (21.3-54.2); Mean Corpuscular Hemoglobin 31 PG (27-34); Mean Corpuscular Volume 98.9 FL (87-102); Mean Platelet Volume 14.1 FL (9.6-12.0); Monocytes # 1.6 10*3/uL (0.11-0.8); Monocytes % 7.1 % (1.7-12.7); NRBC # 0.53 10*3/uL; Neutrophils # 19.2 10*3/uL (1.4-7.4); Neutrophils % 85.2 % (38.7-73.9); Platelet Count 154 T/CUMM (130-400); Red Blood Count 2.71 MC/CUMM (3.8-5.5); Red Cell Distribution Width 16.8 % (9.3-17.3); White Blood Count 22.5 T/CUMM (4-12)
[2017-12-06 05:24] LABS: Band Neutrophils 3 % (0-10); Lymphocytes 7 % (20-55); Platelet Estimate Normal; Segmented Neutrophils 86 % (50-85); Total Cells Counted 100
[2017-12-06 05:25] LABS: Basophilic Stippling Slight; Hypochromasia 1+; Macrocytosis Slight; Polychromasia Slight
[2017-12-06 05:29] LABS: Osmolality,Calculated 337.9 MOS/KG (273-304); Potassium 4.3 MMOL/L (3.5-5.1)
[2017-12-06 05:33] LABS: Prealbumin 43.7 MG/DL (20-40)
[2017-12-06] MEDS: MEROPENEM 1,000 MG in SYRINGE 1 EACH IV SCH ×3 (05:37→22:08)
[2017-12-06] MEDS: LINEZOLID INJ 600 MG in PREMIX 1 EACH IV SCH ×2 (05:38→18:26)
[2017-12-06] MEDS: LEVOTHYROXINE 100 MCG VIAL IV SCH (06:00)
[2017-12-06] MEDS: ALBUTEROL/IPRATROPIUM 3 ML NEB RESP TX SCH ×4 (07:01→19:39)
[2017-12-06] MEDS ORDERED: VECURONIUM 100 MG in SODIUM CHLORIDE 0.9% 100 ML IV PRN (07:30)
[2017-12-06] MEDS: PANTOPRAZOLE 40 MG VIAL IV SCH (08:51)
[2017-12-06] MEDS: INSULIN GLARGINE 100 UNIT/ML SUBCUT SCH ×2 (08:51→20:39)
[2017-12-06] MEDS: POTASSIUM CHLORIDE 20 MEQ/15 ML UDCUP PER TUBE SCH (08:52)
[2017-12-06] MEDS: DESITIN 4OZ/NYSTATIN 15 GRAM MIXTURE PASTE TOP SCH ×2 (08:52→20:40)
[2017-12-06] MEDS: FLUTICASONE 50 MCG NASAL SPRAY 16 GM BOTTLE BOTH NARES SCH (08:53)
[2017-12-06] MEDS: NEOMYCIN/POLYMYXIN/BACITRACIN OINT 0.9 GM PACK TOP SCH ×3 (09:08→20:44)
[2017-12-06] MEDS: metFORMIN 500 MG TABLET PER TUBE SCH ×2 (12:27→20:39)
[2017-12-06] MEDS: hydrALAZINE 20 MG/1 ML VIAL IV PRN (15:13)
[2017-12-06] MEDS: FONDAPARINUX 2.5 MG/0.5 ML SYRINGE SUBCUT SCH (15:14)
[2017-12-06] MEDS: ACETAMINOPHEN 500 MG TABLET PO PRN (17:17)
[2017-12-06] MEDS: [UNRECOGNIZED DRUG - OTHER] IV SCH (18:21)
[2017-12-06] MEDS: INSULIN REGULAR IV SCH (18:21)
[2017-12-06] MEDS: MULTIVITAMIN IV SCH (18:21)
[2017-12-06] MEDS: ELECTROLYTE IV SCH (18:21)
[2017-12-06] MEDS: PROPOFOL 1,000 MG/100 ML BOTTLE IV SCH (18:22)
[2017-12-07] MEDS: ACETAMINOPHEN 500 MG TABLET PO PRN (00:02)
[2017-12-07] MEDS: INSULIN REGULAR ** CONC 500 UNIT/ML ** 20 ML VIAL SUBCUT SCH ×3 (00:02→16:45)
[2017-12-07] MEDS: INSULIN LISPRO 100 UNIT/ML SUBCUT SCH ×6 (00:03→20:36)
[2017-12-07] MEDS: THEOPHYLLINE 5.33 MG/ML 30 ML/BOTTLE NG SCH ×4 (04:19→20:38)
[2017-12-07 04:38] LABS: Allen Test Positive; Pt O2 Delivery Device Ventilator
[2017-12-07 04:41] LABS: ABG Base Excess 7.6 MMOL/L (-2.5-2.5); ABG HCO3 31.4 MMOL/L (20-26); ABG Oxygen Saturation 98.1 % (95-100); ABG PCO2 52.4 MM HG (35-48); ABG PH 7.412 (7.35-7.45)
[2017-12-07 05:25] LABS: Calcium 7.9 MG/DL (8.5-10.1); Potassium 4.7 MMOL/L (3.5-5.1)
[2017-12-07] MEDS: LINEZOLID INJ 600 MG in PREMIX 1 EACH IV SCH ×2 (06:13→17:02)
[2017-12-07] MEDS: MEROPENEM 1,000 MG in SYRINGE 1 EACH IV SCH ×3 (06:13→22:04)
[2017-12-07] MEDS: LEVOTHYROXINE 100 MCG VIAL IV SCH (06:14)
[2017-12-07] MEDS ORDERED: MIDAZOLAM 100 MG in SODIUM CHLORIDE 0.9% 80 ML IV PRN (06:57)
[2017-12-07] MEDS: ALBUTEROL/IPRATROPIUM 3 ML NEB RESP TX SCH ×4 (07:00→19:28)
[2017-12-07] MEDS: methylPREDNISolone SOD SUC 40 MG/1 ML VIAL IV SCH ×3 (08:02→20:37)
[2017-12-07] MEDS: PANTOPRAZOLE 40 MG VIAL IV SCH (08:02)
[2017-12-07] MEDS: metFORMIN 500 MG TABLET PER TUBE SCH ×2 (08:03→20:37)
[2017-12-07] MEDS: INSULIN GLARGINE 100 UNIT/ML SUBCUT SCH ×2 (08:03→20:37)
[2017-12-07] MEDS: DESITIN 4OZ/NYSTATIN 15 GRAM MIXTURE PASTE TOP SCH ×2 (08:04→20:38)
[2017-12-07] MEDS: FLUTICASONE 50 MCG NASAL SPRAY 16 GM BOTTLE BOTH NARES SCH (08:05)
[2017-12-07] MEDS: NEOMYCIN/POLYMYXIN/BACITRACIN OINT 0.9 GM PACK TOP SCH ×2 (09:53→20:39)
[2017-12-07] MEDS: RANITIDINE 150 MG/10 ML 30 ML BOTTLE PER TUBE SCH ×2 (10:00→20:38)
[2017-12-07] MEDS: POTASSIUM CHLORIDE 20 MEQ/15 ML UDCUP PER TUBE SCH (12:11)
[2017-12-07] MEDS: FONDAPARINUX 2.5 MG/0.5 ML SYRINGE SUBCUT SCH (14:56)
[2017-12-07] MEDS: DEXTROSE 5% 1,000 ML IV SCH (16:49)
[2017-12-07] MEDS: [UNRECOGNIZED DRUG - OTHER] IV SCH (17:03)
[2017-12-07] MEDS: MULTIVITAMIN IV SCH (17:03)
[2017-12-07] MEDS: INSULIN REGULAR IV SCH (17:03)
[2017-12-07] MEDS: ELECTROLYTE IV SCH (17:03)
[2017-12-07] MEDS: PROPOFOL 1,000 MG/100 ML BOTTLE IV SCH (17:04)
[2017-12-08] MEDS: INSULIN REGULAR ** CONC 500 UNIT/ML ** 20 ML VIAL SUBCUT SCH ×3 (00:09→17:08)
[2017-12-08] MEDS: INSULIN LISPRO 100 UNIT/ML SUBCUT SCH ×6 (00:10→20:51)
[2017-12-08 04:14] LABS: ABG Base Excess 7.4 MMOL/L (-2.5-2.5); ABG HCO3 32.7 MMOL/L (20-26); ABG Oxygen Saturation 97.6 % (95-100); ABG PCO2 50.6 MM HG (35-48); ABG PH 7.428 (7.35-7.45); ABG PO2 117.3 MM HG (80-95); ABG TCO2 34.2 MMOL/L (23-27); Allen Test Positive; Pt O2 Delivery Device Ventilator
[2017-12-08] MEDS: MORPHINE 4 MG/1 ML VIAL IV PRN ×2 (05:00→12:06)
[2017-12-08] MEDS: THEOPHYLLINE 5.33 MG/ML 30 ML/BOTTLE NG SCH ×4 (05:01→21:53)
[2017-12-08] MEDS: MEROPENEM 1,000 MG in SYRINGE 1 EACH IV SCH ×3 (05:18→21:50)
[2017-12-08] MEDS: LINEZOLID INJ 600 MG in PREMIX 1 EACH IV SCH ×2 (05:18→18:56)
[2017-12-08] MEDS: DEXTROSE 5% 1,000 ML IV SCH ×2 (05:23→23:52)
[2017-12-08 05:40] LABS: Basophils % 0.1 % (0.0-0.8); Hematocrit 26.3 VOL% (35.7-47.0); Hemoglobin 8.2 GM/DL (12.0-16.0); Immature Granulocytes % 4.1 %; Lymphocytes # 0.8 10*3/uL (1.4-4.0); Lymphocytes % 3.4 % (21.3-54.2); Mean Corpuscular HGB Conc 31.2 GM/DL (32-36); Mean Corpuscular Hemoglobin 31 PG (27-34); Mean Corpuscular Volume 98.9 FL (87-102); Mean Platelet Volume 14.3 FL (9.6-12.0); Monocytes # 1.4 10*3/uL (0.11-0.8); Monocytes % 6.3 % (1.7-12.7); NRBC # 0.27 10*3/uL; Neutrophils % 86.1 % (38.7-73.9); Platelet Count 118 T/CUMM (130-400); Red Blood Count 2.66 MC/CUMM (3.8-5.5); Red Cell Distribution Width 17.2 % (9.3-17.3)
[2017-12-08 05:54] LABS: Osmolality,Calculated 323.4 MOS/KG (273-304); Potassium 4.4 MMOL/L (3.5-5.1)
[2017-12-08] MEDS: LEVOTHYROXINE 100 MCG VIAL IV SCH (06:00)
[2017-12-08 06:03] LABS: Band Neutrophils 1 % (0-10); Hypochromasia 1+; Lymphocytes 7 % (20-55); Nucleated Red Blood Cells 2 (0-5); Platelet Estimate Decreased; Segmented Neutrophils 88 % (50-85); Total Cells Counted 100
[2017-12-08 06:04] LABS: Macrocytosis Slight; Polychromasia Slight
[2017-12-08] MEDS: ALBUTEROL/IPRATROPIUM 3 ML NEB RESP TX SCH ×4 (08:18→19:36)
[2017-12-08] MEDS: NEOMYCIN/POLYMYXIN/BACITRACIN OINT 0.9 GM PACK TOP SCH ×2 (08:48→21:53)
[2017-12-08] MEDS: POTASSIUM CHLORIDE 20 MEQ/15 ML UDCUP PER TUBE SCH (08:48)
[2017-12-08] MEDS: methylPREDNISolone SOD SUC 40 MG/1 ML VIAL IV SCH (08:49)
[2017-12-08] MEDS: metFORMIN 500 MG TABLET PER TUBE SCH ×3 (08:50→21:52)
[2017-12-08] MEDS: DESITIN 4OZ/NYSTATIN 15 GRAM MIXTURE PASTE TOP SCH ×2 (08:50→21:53)
[2017-12-08] MEDS: FLUTICASONE 50 MCG NASAL SPRAY 16 GM BOTTLE BOTH NARES SCH (08:50)
[2017-12-08] MEDS: INSULIN GLARGINE 100 UNIT/ML SUBCUT SCH ×2 (08:50→21:48)
[2017-12-08] MEDS: RANITIDINE 150 MG/10 ML 30 ML BOTTLE PER TUBE SCH ×2 (08:51→21:53)
[2017-12-08] MEDS: ACETAMINOPHEN 500 MG TABLET PO PRN ×2 (14:09→23:50)
[2017-12-08] MEDS: LORazepam 2 MG/1 ML VIAL IV PRN (14:56)
[2017-12-08] MEDS: FONDAPARINUX 2.5 MG/0.5 ML SYRINGE SUBCUT SCH (16:48)
[2017-12-08] MEDS: PROPOFOL 1,000 MG/100 ML BOTTLE IV SCH (18:55)
[2017-12-09] MEDS: INSULIN LISPRO 100 UNIT/ML SUBCUT SCH ×6 (00:29→21:14)
[2017-12-09] MEDS: INSULIN REGULAR ** CONC 500 UNIT/ML ** 20 ML VIAL SUBCUT SCH ×3 (00:56→16:14)
[2017-12-09] MEDS: LORazepam 2 MG/1 ML VIAL IV PRN (01:11)
[2017-12-09 03:29] LABS: ABG Base Excess 5.3 MMOL/L (-2.5-2.5); ABG HCO3 29.3 MMOL/L (20-26); ABG Oxygen Saturation 99.9 % (95-100); ABG PCO2 48.6 MM HG (35-48); ABG PH 7.409 (7.35-7.45); ABG TCO2 28.8 MMOL/L (23-27)
[2017-12-09] MEDS: THEOPHYLLINE 5.33 MG/ML 30 ML/BOTTLE NG SCH ×4 (03:44→21:16)
[2017-12-09] MEDS: MEROPENEM 1,000 MG in SYRINGE 1 EACH IV SCH ×3 (06:05→21:25)
[2017-12-09] MEDS: LINEZOLID INJ 600 MG in PREMIX 1 EACH IV SCH ×2 (06:15→18:32)
[2017-12-09] MEDS: LEVOTHYROXINE 100 MCG VIAL IV SCH (06:18)
[2017-12-09 08:16] LABS: Basophils % 0.1 % (0.0-0.8); Hematocrit 24.9 VOL% (35.7-47.0); Hemoglobin 7.4 GM/DL (12.0-16.0); Immature Granulocytes % 3.9 %; Immature Granulocytes Absolute 0.86 #; Lymphocytes # 1.3 10*3/uL (1.4-4.0); Lymphocytes % 5.9 % (21.3-54.2); Mean Corpuscular HGB Conc 29.7 GM/DL (32-36); Mean Corpuscular Hemoglobin 31 PG (27-34); Mean Corpuscular Volume 102.9 FL (87-102); Mean Platelet Volume 13.6 FL (9.6-12.0); Monocytes # 1.3 10*3/uL (0.11-0.8); Monocytes % 5.7 % (1.7-12.7); NRBC # 0.28 10*3/uL; Neutrophils # 18.7 10*3/uL (1.4-7.4); Neutrophils % 84.4 % (38.7-73.9); Platelet Count 117 T/CUMM (130-400); Red Blood Count 2.42 MC/CUMM (3.8-5.5); Red Cell Distribution Width 17.1 % (9.3-17.3); White Blood Count 22.1 T/CUMM (4-12)
[2017-12-09 08:20] LABS: Calcium 7.5 MG/DL (8.5-10.1); Potassium 3.4 MMOL/L (3.5-5.1)
[2017-12-09 08:24] LABS: Prealbumin 33.2 MG/DL (20-40)
[2017-12-09] MEDS: ALBUTEROL/IPRATROPIUM 3 ML NEB RESP TX SCH ×4 (08:37→19:58)
[2017-12-09 08:44] LABS: Band Neutrophils 6 % (0-10); Lymphocytes 5 % (20-55); Segmented Neutrophils 88 % (50-85); Total Cells Counted 100
[2017-12-09 08:45] LABS: Anisocytosis 1+; Atypical Lymphocytes RARE; Basophilic Stippling Slight; Platelet Estimate Adequate
[2017-12-09] MEDS: methylPREDNISolone SOD SUC 40 MG/1 ML VIAL IV SCH (08:48)
[2017-12-09] MEDS: POTASSIUM CHLORIDE 20 MEQ/15 ML UDCUP PER TUBE SCH (08:48)
[2017-12-09] MEDS: INSULIN GLARGINE 100 UNIT/ML SUBCUT SCH ×2 (08:49→21:14)
[2017-12-09] MEDS: MORPHINE 4 MG/1 ML VIAL IV PRN ×2 (08:49→23:06)
[2017-12-09] MEDS: ACETAMINOPHEN 500 MG TABLET PO PRN ×2 (08:50→15:39)
[2017-12-09] MEDS: metFORMIN 500 MG TABLET PER TUBE SCH ×2 (08:50→21:14)
[2017-12-09] MEDS: RANITIDINE 150 MG/10 ML 30 ML BOTTLE PER TUBE SCH ×2 (08:51→21:17)
[2017-12-09] MEDS: DESITIN 4OZ/NYSTATIN 15 GRAM MIXTURE PASTE TOP SCH ×2 (08:52→21:17)
[2017-12-09] MEDS: NEOMYCIN/POLYMYXIN/BACITRACIN OINT 0.9 GM PACK TOP SCH ×2 (08:53→21:18)
[2017-12-09] MEDS: FLUTICASONE 50 MCG NASAL SPRAY 16 GM BOTTLE BOTH NARES SCH (08:53)
[2017-12-09] MEDS: PROPOFOL 1,000 MG/100 ML BOTTLE IV SCH (17:48)
[2017-12-09] MEDS: POTASSIUM CHLORIDE RIDER 20 MEQ in PREMIX 1 EACH IV PRN (23:05)
[2017-12-10] MEDS: INSULIN LISPRO 100 UNIT/ML SUBCUT SCH ×7 (00:15→23:48)
[2017-12-10] MEDS: ACETAMINOPHEN 500 MG TABLET PO PRN ×2 (00:28→11:46)
[2017-12-10] MEDS: POTASSIUM CHLORIDE RIDER 10 MEQ in PREMIX 1 EACH IV PRN (01:05)
[2017-12-10] MEDS: INSULIN REGULAR ** CONC 500 UNIT/ML ** 20 ML VIAL SUBCUT SCH ×4 (01:15→23:49)
[2017-12-10] MEDS: LORazepam 2 MG/1 ML VIAL IV PRN (02:15)
[2017-12-10] MEDS: THEOPHYLLINE 5.33 MG/ML 30 ML/BOTTLE NG SCH ×4 (02:57→20:28)
[2017-12-10 03:37] LABS: ABG Base Excess 6.4 MMOL/L (-2.5-2.5); ABG HCO3 30.3 MMOL/L (20-26); ABG Oxygen Saturation 99.3 % (95-100); ABG PCO2 51.3 MM HG (35-48); ABG PH 7.404 (7.35-7.45); ABG TCO2 30.1 MMOL/L (23-27); Allen Test Positive; Pt O2 Delivery Device Ventilator
[2017-12-10 04:19] LABS: Hematocrit 24.8 VOL% (35.7-47.0); Hemoglobin 7.6 GM/DL (12.0-16.0); Immature Granulocytes % 4.8 %; Lymphocytes # 1.5 10*3/uL (1.4-4.0); Lymphocytes % 7.1 % (21.3-54.2); Mean Corpuscular HGB Conc 30.6 GM/DL (32-36); Mean Corpuscular Hemoglobin 31 PG (27-34); Mean Corpuscular Volume 100.8 FL (87-102); Mean Platelet Volume 13.4 FL (9.6-12.0); Monocytes # 1.2 10*3/uL (0.11-0.8); Monocytes % 5.7 % (1.7-12.7); NRBC # 0.28 10*3/uL; Neutrophils # 17.2 10*3/uL (1.4-7.4); Neutrophils % 82.4 % (38.7-73.9); Platelet Count 117 T/CUMM (130-400); Red Blood Count 2.46 MC/CUMM (3.8-5.5); Red Cell Distribution Width 18.1 % (9.3-17.3); White Blood Count 20.9 T/CUMM (4-12)
[2017-12-10] MEDS: DEXTROSE 5% 1,000 ML IV SCH ×2 (04:29→18:38)
[2017-12-10 04:35] LABS: INR 1.1; PT Patient Result 11.4 SECS
[2017-12-10 04:43] LABS: Calcium 7.6 MG/DL (8.5-10.1); Osmolality,Calculated 297.4 MOS/KG (273-304); Potassium 3.8 MMOL/L (3.5-5.1)
[2017-12-10] MEDS: MAGNESIUM SULF RIDER 2 GM in PREMIX 1 EACH IV PRN (05:21)
[2017-12-10] MEDS: POTASSIUM CHLORIDE RIDER 20 MEQ in PREMIX 1 EACH IV PRN (05:21)
[2017-12-10] MEDS: MEROPENEM 1,000 MG in SYRINGE 1 EACH IV SCH (05:25)
[2017-12-10 05:45] LABS: Band Neutrophils 1 % (0-10); Lymphocytes 7 % (20-55); Nucleated Red Blood Cells 3 (0-5); Platelet Estimate Normal; Polychromasia 1+; Segmented Neutrophils 87 % (50-85); Total Cells Counted 100
[2017-12-10] MEDS: LINEZOLID INJ 600 MG in PREMIX 1 EACH IV SCH ×2 (06:02→18:35)
[2017-12-10] MEDS: LEVOTHYROXINE 100 MCG VIAL IV SCH (06:33)
[2017-12-10] MEDS: ALBUTEROL/IPRATROPIUM 3 ML NEB RESP TX SCH ×4 (07:05→20:30)
[2017-12-10] MEDS: metFORMIN 500 MG TABLET PER TUBE SCH ×2 (08:08→20:29)
[2017-12-10] MEDS: INSULIN GLARGINE 100 UNIT/ML SUBCUT SCH ×2 (08:08→20:29)
[2017-12-10] MEDS: methylPREDNISolone SOD SUC 40 MG/1 ML VIAL IV SCH (08:18)
[2017-12-10] MEDS: DESITIN 4OZ/NYSTATIN 15 GRAM MIXTURE PASTE TOP SCH ×2 (08:22→20:29)
[2017-12-10] MEDS: FLUTICASONE 50 MCG NASAL SPRAY 16 GM BOTTLE BOTH NARES SCH (08:22)
[2017-12-10] MEDS: MORPHINE 4 MG/1 ML VIAL IV PRN ×2 (08:40→14:25)
[2017-12-10] MEDS: NEOMYCIN/POLYMYXIN/BACITRACIN OINT 0.9 GM PACK TOP SCH ×2 (11:37→20:28)
[2017-12-10] MEDS ORDERED: ETOMIDATE 20 MG/10 ML VIAL IV ONE (12:05)
[2017-12-10] MEDS ORDERED: LIDOCAINE 2% 5 ML VIAL ONE (12:05)
[2017-12-10] MEDS ORDERED: PROPOFOL 200 MG/20 ML VIAL IV ONE (12:05)
[2017-12-10] MEDS ORDERED: PHENYLEPHRINE 1 MG/10 ML SYRINGE IV ONE (12:05)
[2017-12-10] MEDS: RANITIDINE 150 MG/10 ML 30 ML BOTTLE PER TUBE SCH ×2 (14:19→20:28)
[2017-12-10] MEDS: POTASSIUM CHLORIDE 20 MEQ/15 ML UDCUP PER TUBE SCH (14:31)
[2017-12-11] MEDS: THEOPHYLLINE 5.33 MG/ML 30 ML/BOTTLE NG SCH ×4 (04:24→20:24)
[2017-12-11] MEDS: INSULIN LISPRO 100 UNIT/ML SUBCUT SCH ×5 (04:24→20:23)
[2017-12-11 04:50] LABS: ABG Base Excess 7.3 MMOL/L (-2.5-2.5); ABG HCO3 31.1 MMOL/L (20-26); ABG PCO2 45.2 MM HG (35-48); ABG PH 7.458 (7.35-7.45); ABG TCO2 29.9 MMOL/L (23-27); Allen Test Positive; Pt O2 Delivery Device Ventilator
[2017-12-11 05:15] LABS: Basophils % 0.1 % (0.0-0.8); Hematocrit 23.8 VOL% (35.7-47.0); Hemoglobin 7.6 GM/DL (12.0-16.0); Immature Granulocytes % 5.6 %; Immature Granulocytes Absolute 1.06 #; Lymphocytes # 1.5 10*3/uL (1.4-4.0); Lymphocytes % 7.7 % (21.3-54.2); Mean Corpuscular HGB Conc 31.9 GM/DL (32-36); Mean Corpuscular Hemoglobin 31 PG (27-34); Mean Corpuscular Volume 98.3 FL (87-102); Mean Platelet Volume 13.1 FL (9.6-12.0); Monocytes # 1.3 10*3/uL (0.11-0.8); NRBC # 0.21 10*3/uL; Neutrophils % 79.6 % (38.7-73.9); Platelet Count 115 T/CUMM (130-400); Red Blood Count 2.42 MC/CUMM (3.8-5.5); Red Cell Distribution Width 19.9 % (9.3-17.3); White Blood Count 18.9 T/CUMM (4-12)
[2017-12-11 05:23] LABS: Calcium 7.6 MG/DL (8.5-10.1); Osmolality,Calculated 291.7 MOS/KG (273-304); Potassium 3.8 MMOL/L (3.5-5.1)
[2017-12-11] MEDS: LEVOTHYROXINE 100 MCG VIAL IV SCH (06:05)
[2017-12-11] MEDS: POTASSIUM CHLORIDE RIDER 20 MEQ in PREMIX 1 EACH IV PRN (06:06)
[2017-12-11] MEDS: LINEZOLID INJ 600 MG in PREMIX 1 EACH IV SCH ×2 (06:06→18:48)
[2017-12-11] MEDS: MAGNESIUM SULF RIDER 4 GM in PREMIX 1 EACH IV PRN (06:06)
[2017-12-11 07:08] LABS: Band Neutrophils 1 % (0-10); Hypochromasia 1+; Lymphocytes 3 % (20-55); Macrocytosis Slight; Nucleated Red Blood Cells 4 (0-5); Platelet Estimate Decreased; Polychromasia Slight; Segmented Neutrophils 91 % (50-85); Total Cells Counted 100
[2017-12-11] MEDS: ALBUTEROL/IPRATROPIUM 3 ML NEB RESP TX SCH ×4 (07:26→20:14)
[2017-12-11] MEDS: MORPHINE 4 MG/1 ML VIAL IV PRN ×2 (07:57→14:25)
[2017-12-11] MEDS: INSULIN GLARGINE 100 UNIT/ML SUBCUT SCH ×2 (08:05→20:24)
[2017-12-11] MEDS: INSULIN REGULAR ** CONC 500 UNIT/ML ** 20 ML VIAL SUBCUT SCH ×2 (08:05→16:16)
[2017-12-11] MEDS: methylPREDNISolone SOD SUC 40 MG/1 ML VIAL IV SCH (08:11)
[2017-12-11] MEDS: POTASSIUM CHLORIDE 20 MEQ/15 ML UDCUP PER TUBE SCH (08:15)
[2017-12-11] MEDS: metFORMIN 500 MG TABLET PER TUBE SCH ×2 (08:16→20:24)
[2017-12-11] MEDS: RANITIDINE 150 MG/10 ML 30 ML BOTTLE PER TUBE SCH ×2 (08:19→20:24)
[2017-12-11] MEDS: DESITIN 4OZ/NYSTATIN 15 GRAM MIXTURE PASTE TOP SCH ×2 (08:26→20:24)
[2017-12-11] MEDS: FLUTICASONE 50 MCG NASAL SPRAY 16 GM BOTTLE BOTH NARES SCH (08:26)
[2017-12-11] MEDS: NEOMYCIN/POLYMYXIN/BACITRACIN OINT 0.9 GM PACK TOP SCH ×2 (08:31→20:24)
[2017-12-11] MEDS ORDERED: MAGNESIUM SULF RIDER 2 GM in PREMIX 1 EACH IV ONE (08:34)
[2017-12-11] MEDS: DEXTROSE 5% 1,000 ML IV SCH ×2 (12:42→18:58)
[2017-12-11] MEDS ORDERED: LORazepam 2 MG/1 ML VIAL ONE (13:11)
[2017-12-11] MEDS: FONDAPARINUX 2.5 MG/0.5 ML SYRINGE SUBCUT SCH (16:07)
[2017-12-11] MEDS ORDERED: ONDANSETRON 4 MG/2 ML VIAL IV PRN (21:53)
[2017-12-12] MEDS: INSULIN REGULAR ** CONC 500 UNIT/ML ** 20 ML VIAL SUBCUT SCH ×2 (00:04→09:03)
[2017-12-12] MEDS: THEOPHYLLINE 5.33 MG/ML 30 ML/BOTTLE NG SCH ×4 (02:54→20:33)
[2017-12-12] MEDS: MORPHINE 4 MG/1 ML VIAL IV PRN ×2 (02:55→20:33)
[2017-12-12 04:01] LABS: ABG HCO3 29.9 MMOL/L (20-26); ABG Oxygen Saturation 99.5 % (95-100); ABG PCO2 51.8 MM HG (35-48); ABG PH 7.395 (7.35-7.45); ABG TCO2 29.7 MMOL/L (23-27); Allen Test Positive; Pt O2 Delivery Device Ventilator
[2017-12-12] MEDS: INSULIN LISPRO 100 UNIT/ML SUBCUT SCH ×6 (05:19→20:49)
[2017-12-12 05:48] LABS: Calcium 7.4 MG/DL (8.5-10.1); Osmolality,Calculated 287.7 MOS/KG (273-304); Potassium 3.2 MMOL/L (3.5-5.1)
[2017-12-12] MEDS: POTASSIUM CHLORIDE RIDER 20 MEQ in PREMIX 1 EACH IV PRN ×2 (06:04→08:05)
[2017-12-12] MEDS: LINEZOLID INJ 600 MG in PREMIX 1 EACH IV SCH ×2 (06:04→18:21)
[2017-12-12] MEDS: MAGNESIUM SULF RIDER 4 GM in PREMIX 1 EACH IV PRN (06:05)
[2017-12-12] MEDS: LEVOTHYROXINE 100 MCG VIAL IV SCH (06:06)
[2017-12-12] MEDS: ALBUTEROL/IPRATROPIUM 3 ML NEB RESP TX SCH ×4 (07:03→19:40)
[2017-12-12] MEDS ORDERED: INSULIN REGULAR ** CONC 500 UNIT/ML ** 20 ML VIAL SUBCUT SCH (08:56)
[2017-12-12] MEDS ORDERED: MAGNESIUM SULF RIDER 4 GM in PREMIX 1 EACH IV ONE (08:59)
[2017-12-12] MEDS: POTASSIUM CHLORIDE 20 MEQ/15 ML UDCUP PER TUBE SCH ×5 (10:41→20:33)
[2017-12-12] MEDS: metFORMIN 500 MG TABLET PER TUBE SCH ×2 (10:41→20:32)
[2017-12-12] MEDS: NEOMYCIN/POLYMYXIN/BACITRACIN OINT 0.9 GM PACK TOP SCH ×2 (10:41→20:33)
[2017-12-12] MEDS: INSULIN REGULAR 100 UNIT/ML SUBCUT SCH ×2 (10:41→18:04)
[2017-12-12] MEDS: INSULIN GLARGINE 100 UNIT/ML SUBCUT SCH ×2 (10:42→20:32)
[2017-12-12] MEDS: RANITIDINE 150 MG/10 ML 30 ML BOTTLE PER TUBE SCH ×2 (10:42→20:33)
[2017-12-12] MEDS: FLUTICASONE 50 MCG NASAL SPRAY 16 GM BOTTLE BOTH NARES SCH (10:42)
[2017-12-12] MEDS: DESITIN 4OZ/NYSTATIN 15 GRAM MIXTURE PASTE TOP SCH ×2 (10:43→20:34)
[2017-12-12] MEDS: FONDAPARINUX 2.5 MG/0.5 ML SYRINGE SUBCUT SCH (15:05)
[2017-12-13] MEDS: INSULIN LISPRO 100 UNIT/ML SUBCUT SCH ×5 (01:13→18:14)
[2017-12-13] MEDS: INSULIN REGULAR 100 UNIT/ML SUBCUT SCH ×4 (01:16→19:59)
[2017-12-13] MEDS ORDERED: FUROSEMIDE 20 MG/2 ML VIAL ONE (02:57)
[2017-12-13] MEDS: THEOPHYLLINE 5.33 MG/ML 30 ML/BOTTLE NG SCH ×4 (04:21→21:31)
[2017-12-13 04:50] LABS: Calcium 7.4 MG/DL (8.5-10.1); Osmolality,Calculated 285.8 MOS/KG (273-304); Potassium 3.7 MMOL/L (3.5-5.1)
[2017-12-13 05:37] LABS: Prealbumin 18.8 MG/DL (20-40)
[2017-12-13] MEDS: LINEZOLID INJ 600 MG in PREMIX 1 EACH IV SCH ×2 (06:18→18:11)
[2017-12-13] MEDS: LEVOTHYROXINE 100 MCG VIAL IV SCH (06:20)
[2017-12-13] MEDS: POTASSIUM CHLORIDE RIDER 20 MEQ in PREMIX 1 EACH IV PRN (06:21)
[2017-12-13] MEDS: LORazepam 2 MG/1 ML VIAL IV PRN ×2 (06:24→10:51)
[2017-12-13] MEDS: ALBUTEROL/IPRATROPIUM 3 ML NEB RESP TX SCH ×4 (07:16→19:54)
[2017-12-13] MEDS: FLUTICASONE 50 MCG NASAL SPRAY 16 GM BOTTLE BOTH NARES SCH (08:57)
[2017-12-13] MEDS: DESITIN 4OZ/NYSTATIN 15 GRAM MIXTURE PASTE TOP SCH ×2 (08:57→20:00)
[2017-12-13] MEDS: INSULIN GLARGINE 100 UNIT/ML SUBCUT SCH ×2 (08:58→20:00)
[2017-12-13] MEDS: metFORMIN 500 MG TABLET PER TUBE SCH ×2 (08:58→20:00)
[2017-12-13] MEDS: RANITIDINE 150 MG/10 ML 30 ML BOTTLE PER TUBE SCH ×2 (08:58→21:31)
[2017-12-13] MEDS: POTASSIUM CHLORIDE 20 MEQ/15 ML UDCUP PER TUBE SCH ×4 (08:59→19:59)
[2017-12-13] MEDS: NEOMYCIN/POLYMYXIN/BACITRACIN OINT 0.9 GM PACK TOP SCH ×2 (08:59→20:00)
[2017-12-13] MEDS: ACETAMINOPHEN 500 MG TABLET PO PRN (11:17)
[2017-12-13] MEDS ORDERED: MAGNESIUM SULF RIDER 4 GM in PREMIX 1 EACH IV ONE (12:30)
[2017-12-13 13:16] LABS: ABG Base Excess 7.7 MMOL/L (-2.5-2.5); ABG HCO3 31.5 MMOL/L (20-26); ABG Oxygen Saturation 99.8 % (95-100); ABG PCO2 53.6 MM HG (35-48); ABG PH 7.404 (7.35-7.45); ABG TCO2 31.4 MMOL/L (23-27)
[2017-12-13] MEDS: FONDAPARINUX 2.5 MG/0.5 ML SYRINGE SUBCUT SCH (16:36)
[2017-12-13] MEDS: MORPHINE 4 MG/1 ML VIAL IV PRN (20:08)
[2017-12-14] MEDS: INSULIN LISPRO 100 UNIT/ML SUBCUT SCH ×4 (00:27→18:21)
[2017-12-14] MEDS: MORPHINE 4 MG/1 ML VIAL IV PRN ×3 (00:30→10:23)
[2017-12-14 03:14] LABS: ABG Base Excess 9.1 MMOL/L (-2.5-2.5); ABG HCO3 36.3 MMOL/L (20-26); ABG PCO2 67.6 MM HG (35-48); ABG PH 7.348 (7.35-7.45); ABG PO2 100.9 MM HG (80-95); ABG TCO2 38.4 MMOL/L (23-27); Allen Test Positive; Pt O2 Delivery Device Ventilator
[2017-12-14] MEDS: LORazepam 2 MG/1 ML VIAL IV PRN ×3 (04:00→14:37)
[2017-12-14] MEDS: INSULIN REGULAR 100 UNIT/ML SUBCUT SCH ×3 (04:06→20:50)
[2017-12-14] MEDS: THEOPHYLLINE 5.33 MG/ML 30 ML/BOTTLE NG SCH ×4 (04:07→20:43)
[2017-12-14 04:21] LABS: Basophils % 0.1 % (0.0-0.8); Eosinophils % 0.1 % (0.00-10.9); Hematocrit 26.1 VOL% (35.7-47.0); Hemoglobin 7.8 GM/DL (12.0-16.0); Immature Granulocytes % 1.1 %; Immature Granulocytes Absolute 0.15 #; Lymphocytes # 1.2 10*3/uL (1.4-4.0); Lymphocytes % 8.3 % (21.3-54.2); Mean Corpuscular HGB Conc 29.9 GM/DL (32-36); Mean Corpuscular Hemoglobin 31 PG (27-34); Mean Corpuscular Volume 104.4 FL (87-102); Mean Platelet Volume 11.1 FL (9.6-12.0); Monocytes # 1.1 10*3/uL (0.11-0.8); Monocytes % 7.6 % (1.7-12.7); NRBC # 0.05 10*3/uL; Neutrophils # 11.5 10*3/uL (1.4-7.4); Neutrophils % 82.8 % (38.7-73.9); Platelet Count 142 T/CUMM (130-400); Red Cell Distribution Width 21.2 % (9.3-17.3); White Blood Count 13.9 T/CUMM (4-12)
[2017-12-14 04:38] LABS: Calcium 7.8 MG/DL (8.5-10.1); Osmolality,Calculated 282.1 MOS/KG (273-304); Potassium 3.9 MMOL/L (3.5-5.1)
[2017-12-14] MEDS: LEVOTHYROXINE 100 MCG VIAL IV SCH (06:13)
[2017-12-14] MEDS: LINEZOLID INJ 600 MG in PREMIX 1 EACH IV SCH ×2 (06:14→18:25)
[2017-12-14] MEDS: MAGNESIUM SULF RIDER 2 GM in PREMIX 1 EACH IV PRN (06:17)
[2017-12-14] MEDS: POTASSIUM CHLORIDE RIDER 20 MEQ in PREMIX 1 EACH IV PRN (06:18)
[2017-12-14] MEDS: ALBUTEROL/IPRATROPIUM 3 ML NEB RESP TX SCH ×4 (07:38→19:21)
[2017-12-14] MEDS: RANITIDINE 150 MG/10 ML 30 ML BOTTLE PER TUBE SCH ×2 (08:35→20:44)
[2017-12-14] MEDS: hydrALAZINE 20 MG/1 ML VIAL IV PRN (08:38)
[2017-12-14] MEDS: POTASSIUM CHLORIDE 20 MEQ/15 ML UDCUP PER TUBE SCH (08:38)
[2017-12-14] MEDS: metFORMIN 500 MG TABLET PER TUBE SCH ×2 (08:38→20:47)
[2017-12-14] MEDS: DESITIN 4OZ/NYSTATIN 15 GRAM MIXTURE PASTE TOP SCH ×2 (08:44→20:51)
[2017-12-14] MEDS: FLUTICASONE 50 MCG NASAL SPRAY 16 GM BOTTLE BOTH NARES SCH (08:44)
[2017-12-14] MEDS: NEOMYCIN/POLYMYXIN/BACITRACIN OINT 0.9 GM PACK TOP SCH ×2 (08:44→20:45)
[2017-12-14] MEDS: INSULIN GLARGINE 100 UNIT/ML SUBCUT SCH ×2 (09:04→20:50)
[2017-12-14] MEDS: ACETAMINOPHEN 500 MG TABLET PO PRN (12:33)
[2017-12-14] MEDS: FONDAPARINUX 2.5 MG/0.5 ML SYRINGE SUBCUT SCH (14:41)
[2017-12-15] MEDS: INSULIN LISPRO 100 UNIT/ML SUBCUT SCH ×4 (00:59→18:07)
[2017-12-15] MEDS: THEOPHYLLINE 5.33 MG/ML 30 ML/BOTTLE NG SCH ×4 (03:37→20:29)
[2017-12-15] MEDS: INSULIN REGULAR 100 UNIT/ML SUBCUT SCH ×3 (03:37→20:37)
[2017-12-15 04:17] LABS: ABG Base Excess 11.8 MMOL/L (-2.5-2.5); ABG HCO3 36.9 MMOL/L (20-26); ABG Oxygen Saturation 98.2 % (95-100); ABG PCO2 53.1 MM HG (35-48); ABG PO2 118.8 MM HG (80-95); ABG TCO2 38.5 MMOL/L (23-27); Allen Test Positive; Pt O2 Delivery Device Ventilator
[2017-12-15] MEDS: LEVOTHYROXINE 100 MCG VIAL IV SCH (06:11)
[2017-12-15] MEDS: ALBUTEROL/IPRATROPIUM 3 ML NEB RESP TX SCH ×4 (07:32→20:26)
[2017-12-15 07:47] LABS: Basophils % 0.1 % (0.0-0.8); Eosinophils % 0.2 % (0.00-10.9); Hematocrit 23.8 VOL% (35.7-47.0); Hemoglobin 7.2 GM/DL (12.0-16.0); Immature Granulocytes % 1.1 %; Immature Granulocytes Absolute 0.11 #; Lymphocytes % 9.5 % (21.3-54.2); Mean Corpuscular HGB Conc 30.3 GM/DL (32-36); Mean Corpuscular Hemoglobin 32 PG (27-34); Mean Corpuscular Volume 104.8 FL (87-102); Monocytes # 0.7 10*3/uL (0.11-0.8); Monocytes % 6.6 % (1.7-12.7); NRBC # 0.02 10*3/uL; Neutrophils # 8.3 10*3/uL (1.4-7.4); Neutrophils % 82.5 % (38.7-73.9); Platelet Count 149 T/CUMM (130-400); Red Blood Count 2.27 MC/CUMM (3.8-5.5); Red Cell Distribution Width 21.4 % (9.3-17.3); White Blood Count 10.1 T/CUMM (4-12)
[2017-12-15 08:11] LABS: Calcium 8.2 MG/DL (8.5-10.1); Osmolality,Calculated 280.3 MOS/KG (273-304); Potassium 3.4 MMOL/L (3.5-5.1)
[2017-12-15] MEDS: FLUoxetine 20 MG CAPSULE PO SCH (08:49)
[2017-12-15] MEDS: POTASSIUM CHLORIDE 20 MEQ/15 ML UDCUP PER TUBE SCH (08:49)
[2017-12-15] MEDS: metFORMIN 500 MG TABLET PER TUBE SCH ×2 (08:49→20:28)
[2017-12-15] MEDS: INSULIN GLARGINE 100 UNIT/ML SUBCUT SCH ×2 (08:49→20:24)
[2017-12-15] MEDS: RANITIDINE 150 MG/10 ML 30 ML BOTTLE PER TUBE SCH ×2 (08:51→20:30)
[2017-12-15] MEDS: DESITIN 4OZ/NYSTATIN 15 GRAM MIXTURE PASTE TOP SCH ×2 (08:51→20:30)
[2017-12-15] MEDS: FLUTICASONE 50 MCG NASAL SPRAY 16 GM BOTTLE BOTH NARES SCH (08:51)
[2017-12-15] MEDS: NEOMYCIN/POLYMYXIN/BACITRACIN OINT 0.9 GM PACK TOP SCH ×2 (08:52→20:30)
[2017-12-15] MEDS: ALBUTEROL/IPRATROPIUM 3 ML NEB RESP TX PRN (10:37)
[2017-12-15] MEDS ORDERED: MAGNESIUM SULF RIDER 50 ML IV ONE (10:47)
[2017-12-15] MEDS: MAGNESIUM SULF RIDER 2 GM in PREMIX 1 EACH IV PRN ×2 (11:01→20:05)
[2017-12-15] MEDS: POTASSIUM CHLORIDE RIDER 20 MEQ in PREMIX 1 EACH IV PRN ×3 (11:03→20:05)
[2017-12-15] MEDS: MORPHINE 4 MG/1 ML VIAL IV PRN (12:38)
[2017-12-15] MEDS: LORazepam 2 MG/1 ML VIAL IV PRN ×2 (13:52→20:28)
[2017-12-15] MEDS: FONDAPARINUX 2.5 MG/0.5 ML SYRINGE SUBCUT SCH (15:42)
[2017-12-15] MEDS: POTASSIUM CHLORIDE RIDER 10 MEQ in PREMIX 1 EACH IV PRN (15:52)
[2017-12-16] MEDS: INSULIN LISPRO 100 UNIT/ML SUBCUT SCH ×4 (00:15→18:17)
[2017-12-16] MEDS: THEOPHYLLINE 5.33 MG/ML 30 ML/BOTTLE NG SCH ×4 (02:41→21:22)
[2017-12-16] MEDS: LORazepam 2 MG/1 ML VIAL IV PRN (03:59)
[2017-12-16] MEDS: INSULIN REGULAR 100 UNIT/ML SUBCUT SCH ×3 (04:38→18:21)
[2017-12-16 04:54] LABS: ABG Base Excess 11.6 MMOL/L (-2.5-2.5); ABG HCO3 35.4 MMOL/L (20-26); ABG PCO2 48.7 MM HG (35-48); ABG PH 7.483 (7.35-7.45); ABG TCO2 34.6 MMOL/L (23-27); Allen Test Positive; Pt O2 Delivery Device Ventilator
[2017-12-16 05:00] LABS: Basophils % 0.2 % (0.0-0.8); Hemoglobin 6.7 GM/DL (12.0-16.0); Immature Granulocytes % 0.9 %; Immature Granulocytes Absolute 0.08 #; Lymphocytes # 1.1 10*3/uL (1.4-4.0); Mean Corpuscular HGB Conc 30.5 GM/DL (32-36); Mean Corpuscular Hemoglobin 32 PG (27-34); Mean Corpuscular Volume 104.3 FL (87-102); Mean Platelet Volume 10.5 FL (9.6-12.0); Monocytes # 0.7 10*3/uL (0.11-0.8); Monocytes % 7.1 % (1.7-12.7); NRBC # 0.03 10*3/uL; Neutrophils # 7.3 10*3/uL (1.4-7.4); Neutrophils % 79.8 % (38.7-73.9); Platelet Count 142 T/CUMM (130-400); Red Blood Count 2.11 MC/CUMM (3.8-5.5); Red Cell Distribution Width 21.6 % (9.3-17.3); White Blood Count 9.2 T/CUMM (4-12)
[2017-12-16 05:37] LABS: Blood Urea Nitrogen 8 MG/DL (7-18); Calcium 8.2 MG/DL (8.5-10.1); Glucose 110 MG/DL (74-106); Osmolality,Calculated 279.3 MOS/KG (273-304); Potassium 3.5 MMOL/L (3.5-5.1); Prealbumin 13.3 MG/DL (20-40); Sodium 141 MMOL/L (136-145)
[2017-12-16] MEDS: MAGNESIUM SULF RIDER 2 GM in PREMIX 1 EACH IV PRN (06:05)
[2017-12-16] MEDS: POTASSIUM CHLORIDE RIDER 20 MEQ in PREMIX 1 EACH IV PRN ×2 (06:06→15:19)
[2017-12-16] MEDS: LEVOTHYROXINE 100 MCG VIAL IV SCH (06:17)
[2017-12-16] MEDS: ALBUTEROL/IPRATROPIUM 3 ML NEB RESP TX SCH ×4 (06:54→20:17)
[2017-12-16] MEDS ORDERED: MAGNESIUM SULF RIDER 2 GM in PREMIX 1 EACH IV ONE (07:56)
[2017-12-16] MEDS ORDERED: SODIUM CHLORIDE 0.9% 1,000 ML IV PRN (07:58)
[2017-12-16] MEDS: POTASSIUM CHLORIDE 20 MEQ/15 ML UDCUP PER TUBE SCH (09:11)
[2017-12-16] MEDS: INSULIN GLARGINE 100 UNIT/ML SUBCUT SCH ×2 (09:11→21:21)
[2017-12-16] MEDS: FLUoxetine 20 MG CAPSULE PO SCH (09:12)
[2017-12-16] MEDS: metFORMIN 500 MG TABLET PER TUBE SCH (09:12)
[2017-12-16] MEDS: FLUTICASONE 50 MCG NASAL SPRAY 16 GM BOTTLE BOTH NARES SCH (09:13)
[2017-12-16] MEDS: RANITIDINE 150 MG/10 ML 30 ML BOTTLE PER TUBE SCH ×2 (09:13→21:22)
[2017-12-16] MEDS: DESITIN 4OZ/NYSTATIN 15 GRAM MIXTURE PASTE TOP SCH ×2 (09:13→21:22)
[2017-12-16 11:14] LABS: Potassium 3.9 MMOL/L (3.5-5.1)
[2017-12-16] MEDS: NEOMYCIN/POLYMYXIN/BACITRACIN OINT 0.9 GM PACK TOP SCH ×2 (11:47→21:22)
[2017-12-16] MEDS: FONDAPARINUX 2.5 MG/0.5 ML SYRINGE SUBCUT SCH (15:18)
[2017-12-16 20:04] LABS: Hematocrit 26.5 VOL% (35.7-47.0); Hemoglobin 8.1 GM/DL (12.0-16.0)
[2017-12-17] MEDS: INSULIN LISPRO 100 UNIT/ML SUBCUT SCH ×5 (00:06→23:59)
[2017-12-17] MEDS: INSULIN REGULAR 100 UNIT/ML SUBCUT SCH ×3 (00:09→18:19)
[2017-12-17] MEDS: LORazepam 2 MG/1 ML VIAL IV PRN (02:26)
[2017-12-17] MEDS: THEOPHYLLINE 5.33 MG/ML 30 ML/BOTTLE NG SCH ×4 (02:51→20:33)
[2017-12-17 04:28] LABS: ABG Base Excess 10.9 MMOL/L (-2.5-2.5); ABG HCO3 34.6 MMOL/L (20-26); ABG Oxygen Saturation 99.8 % (95-100); ABG PCO2 46.7 MM HG (35-48); ABG TCO2 32.9 MMOL/L (23-27); Allen Test Positive; Pt O2 Delivery Device Ventilator
[2017-12-17 05:42] LABS: Basophils % 0.1 % (0.0-0.8); Eosinophils % 0.1 % (0.00-10.9); Hematocrit 26.3 VOL% (35.7-47.0); Hemoglobin 8.1 GM/DL (12.0-16.0); Immature Granulocytes % 1.3 %; Immature Granulocytes Absolute 0.11 #; Lymphocytes % 11.5 % (21.3-54.2); Mean Corpuscular HGB Conc 30.8 GM/DL (32-36); Mean Corpuscular Hemoglobin 31 PG (27-34); Mean Corpuscular Volume 99.2 FL (87-102); Mean Platelet Volume 10.4 FL (9.6-12.0); Monocytes # 0.7 10*3/uL (0.11-0.8); Monocytes % 7.6 % (1.7-12.7); NRBC # 0.03 10*3/uL; Neutrophils % 79.4 % (38.7-73.9); Platelet Count 156 T/CUMM (130-400); Red Blood Count 2.65 MC/CUMM (3.8-5.5); Red Cell Distribution Width 22.4 % (9.3-17.3); White Blood Count 8.8 T/CUMM (4-12)
[2017-12-17 06:26] LABS: Hypochromasia 1+; Microcytosis Slight; Ovalocytes Slight; Platelet Estimate Normal
[2017-12-17] MEDS: LEVOTHYROXINE 100 MCG VIAL IV SCH (06:37)
[2017-12-17] MEDS: ALBUTEROL/IPRATROPIUM 3 ML NEB RESP TX SCH ×3 (07:51→15:30)
[2017-12-17 08:00] LABS: Calcium 8.2 MG/DL (8.5-10.1)
[2017-12-17 08:01] LABS: Blood Urea Nitrogen 7 MG/DL (7-18); Glucose 107 MG/DL (74-106); Osmolality,Calculated 276.4 MOS/KG (273-304); Potassium 3.3 MMOL/L (3.5-5.1); Sodium 140 MMOL/L (136-145)
[2017-12-17] MEDS: FLUoxetine 20 MG CAPSULE PO SCH (08:38)
[2017-12-17] MEDS: INSULIN GLARGINE 100 UNIT/ML SUBCUT SCH ×2 (08:38→20:31)
[2017-12-17] MEDS: RANITIDINE 150 MG/10 ML 30 ML BOTTLE PER TUBE SCH ×2 (08:39→20:32)
[2017-12-17] MEDS: FLUTICASONE 50 MCG NASAL SPRAY 16 GM BOTTLE BOTH NARES SCH (08:39)
[2017-12-17] MEDS: DESITIN 4OZ/NYSTATIN 15 GRAM MIXTURE PASTE TOP SCH ×2 (08:40→20:38)
[2017-12-17] MEDS: POTASSIUM CHLORIDE RIDER 20 MEQ in PREMIX 1 EACH IV PRN ×2 (08:45→10:39)
[2017-12-17] MEDS: MAGNESIUM SULF RIDER 2 GM in PREMIX 1 EACH IV PRN (08:47)
[2017-12-17] MEDS: NEOMYCIN/POLYMYXIN/BACITRACIN OINT 0.9 GM PACK TOP SCH ×2 (08:49→20:31)
[2017-12-17] MEDS: POTASSIUM CHLORIDE 20 MEQ/15 ML UDCUP PER TUBE SCH (08:49)
[2017-12-17] MEDS: MORPHINE 4 MG/1 ML VIAL IV PRN ×3 (10:06→21:15)
[2017-12-17] MEDS: hydrALAZINE 20 MG/1 ML VIAL IV PRN ×2 (15:08→21:15)
[2017-12-17] MEDS: FONDAPARINUX 2.5 MG/0.5 ML SYRINGE SUBCUT SCH (15:09)
[2017-12-18] MEDS: LORazepam 2 MG/1 ML VIAL IV PRN ×4 (00:31→15:02)
[2017-12-18] MEDS: POTASSIUM CHLORIDE RIDER 20 MEQ in PREMIX 1 EACH IV PRN ×2 (01:33→07:52)
[2017-12-18] MEDS: THEOPHYLLINE 5.33 MG/ML 30 ML/BOTTLE NG SCH ×4 (03:04→21:32)
[2017-12-18] MEDS: POTASSIUM CHLORIDE RIDER 10 MEQ in PREMIX 1 EACH IV PRN (03:35)
[2017-12-18 04:38] LABS: ABG Base Excess 10.6 MMOL/L (-2.5-2.5); ABG HCO3 34.4 MMOL/L (20-26); ABG Oxygen Saturation 99.4 % (95-100); ABG PCO2 50.5 MM HG (35-48); ABG TCO2 33.2 MMOL/L (23-27)
[2017-12-18 05:22] LABS: Basophils % 0.1 % (0.0-0.8); Hemoglobin 8.4 GM/DL (12.0-16.0); Immature Granulocytes % 1.3 %; Immature Granulocytes Absolute 0.09 #; Lymphocytes # 0.8 10*3/uL (1.4-4.0); Lymphocytes % 11.8 % (21.3-54.2); Mean Corpuscular HGB Conc 31.1 GM/DL (32-36); Mean Corpuscular Hemoglobin 31 PG (27-34); Mean Corpuscular Volume 98.5 FL (87-102); Mean Platelet Volume 10.3 FL (9.6-12.0); Monocytes # 0.5 10*3/uL (0.11-0.8); Monocytes % 7.7 % (1.7-12.7); NRBC # 0.02 10*3/uL; Neutrophils # 5.4 10*3/uL (1.4-7.4); Neutrophils % 79.1 % (38.7-73.9); Platelet Count 181 T/CUMM (130-400); Red Blood Count 2.74 MC/CUMM (3.8-5.5); Red Cell Distribution Width 22.2 % (9.3-17.3); White Blood Count 6.8 T/CUMM (4-12)
[2017-12-18 05:55] LABS: Anisocytosis 1+; Hypochromasia 1+; Microcytosis 1+; Platelet Estimate Adequate
[2017-12-18 05:56] LABS: Blood Urea Nitrogen 8 MG/DL (7-18); Calcium 8.4 MG/DL (8.5-10.1); Glucose 123 MG/DL (74-106); Osmolality,Calculated 279.3 MOS/KG (273-304); Potassium 3.6 MMOL/L (3.5-5.1); Sodium 141 MMOL/L (136-145)
[2017-12-18] MEDS: INSULIN LISPRO 100 UNIT/ML SUBCUT SCH ×3 (06:03→18:07)
[2017-12-18] MEDS ORDERED: LEVOTHYROXINE 75 MCG TABLET NG SCH (06:30)
[2017-12-18] MEDS: MAGNESIUM SULF RIDER 2 GM in PREMIX 1 EACH IV PRN (07:54)
[2017-12-18] MEDS: INSULIN REGULAR 100 UNIT/ML SUBCUT SCH ×3 (08:31→18:05)
[2017-12-18] MEDS: FLUoxetine 20 MG CAPSULE PO SCH (09:12)
[2017-12-18] MEDS: POTASSIUM CHLORIDE 20 MEQ/15 ML UDCUP PER TUBE SCH (09:12)
[2017-12-18] MEDS: INSULIN GLARGINE 100 UNIT/ML SUBCUT SCH ×2 (09:12→21:30)
[2017-12-18] MEDS: RANITIDINE 150 MG/10 ML 30 ML BOTTLE PER TUBE SCH ×2 (09:15→21:31)
[2017-12-18] MEDS: FLUTICASONE 50 MCG NASAL SPRAY 16 GM BOTTLE BOTH NARES SCH (09:18)
[2017-12-18] MEDS: DESITIN 4OZ/NYSTATIN 15 GRAM MIXTURE PASTE TOP SCH ×2 (09:38→21:33)
[2017-12-18] MEDS: MORPHINE 4 MG/1 ML VIAL IV PRN ×2 (09:42→15:02)
[2017-12-18] MEDS: NEOMYCIN/POLYMYXIN/BACITRACIN OINT 0.9 GM PACK TOP SCH ×2 (15:02→21:33)
[2017-12-18] MEDS: FONDAPARINUX 2.5 MG/0.5 ML SYRINGE SUBCUT SCH (15:03)
[2017-12-19] MEDS: INSULIN LISPRO 100 UNIT/ML SUBCUT SCH ×4 (00:30→17:25)
[2017-12-19] MEDS: INSULIN REGULAR 100 UNIT/ML SUBCUT SCH ×3 (00:31→17:26)
[2017-12-19] MEDS: MORPHINE 4 MG/1 ML VIAL IV PRN ×3 (02:17→18:08)
[2017-12-19] MEDS: LORazepam 2 MG/1 ML VIAL IV PRN (02:17)
[2017-12-19] MEDS: THEOPHYLLINE 5.33 MG/ML 30 ML/BOTTLE NG SCH ×4 (02:58→20:41)
[2017-12-19 03:43] LABS: Allen Test Positive; Pt O2 Delivery Device Ventilator
[2017-12-19 03:44] LABS: ABG Base Excess 8.1 MMOL/L (-2.5-2.5); ABG HCO3 31.9 MMOL/L (20-26); ABG Oxygen Saturation 99.2 % (95-100); ABG PCO2 51.3 MM HG (35-48); ABG PH 7.425 (7.35-7.45); ABG TCO2 31.3 MMOL/L (23-27)
[2017-12-19 06:01] LABS: Basophils % 0.2 % (0.0-0.8); Eosinophils % 0.6 % (0.00-10.9); Hematocrit 25.7 VOL% (35.7-47.0); Immature Granulocytes % 1.8 %; Immature Granulocytes Absolute 0.09 #; Lymphocytes # 0.9 10*3/uL (1.4-4.0); Lymphocytes % 17.8 % (21.3-54.2); Mean Corpuscular HGB Conc 31.1 GM/DL (32-36); Mean Corpuscular Hemoglobin 31 PG (27-34); Mean Corpuscular Volume 98.5 FL (87-102); Mean Platelet Volume 10.4 FL (9.6-12.0); Monocytes # 0.4 10*3/uL (0.11-0.8); Monocytes % 8.6 % (1.7-12.7); NRBC # 0.03 10*3/uL; Neutrophils # 3.6 10*3/uL (1.4-7.4); Platelet Count 215 T/CUMM (130-400); Red Blood Count 2.61 MC/CUMM (3.8-5.5); Red Cell Distribution Width 20.7 % (9.3-17.3)
[2017-12-19 06:25] LABS: Calcium 8.4 MG/DL (8.5-10.1); Osmolality,Calculated 278.4 MOS/KG (273-304); Potassium 3.1 MMOL/L (3.5-5.1)
[2017-12-19] MEDS: INSULIN GLARGINE 100 UNIT/ML SUBCUT SCH ×2 (08:32→20:38)
[2017-12-19] MEDS: POTASSIUM CHLORIDE 20 MEQ/15 ML UDCUP PER TUBE SCH ×3 (08:32→15:28)
[2017-12-19] MEDS: FLUoxetine 20 MG CAPSULE PO SCH (08:32)
[2017-12-19] MEDS: NEOMYCIN/POLYMYXIN/BACITRACIN OINT 0.9 GM PACK TOP SCH ×2 (08:34→20:41)
[2017-12-19] MEDS: FLUTICASONE 50 MCG NASAL SPRAY 16 GM BOTTLE BOTH NARES SCH (08:34)
[2017-12-19] MEDS: DESITIN 4OZ/NYSTATIN 15 GRAM MIXTURE PASTE TOP SCH ×2 (08:34→20:40)
[2017-12-19] MEDS: RANITIDINE 150 MG/10 ML 30 ML BOTTLE PER TUBE SCH ×2 (08:34→20:40)
[2017-12-19] MEDS: POTASSIUM CHLORIDE RIDER 20 MEQ in PREMIX 1 EACH IV PRN (08:44)
[2017-12-19] MEDS: ALBUTEROL/IPRATROPIUM 3 ML NEB RESP TX SCH ×2 (13:10→19:32)
[2017-12-19] MEDS: FONDAPARINUX 2.5 MG/0.5 ML SYRINGE SUBCUT SCH (15:28)
[2017-12-20] MEDS: INSULIN LISPRO 100 UNIT/ML SUBCUT SCH ×5 (00:06→23:44)
[2017-12-20] MEDS: INSULIN REGULAR 100 UNIT/ML SUBCUT SCH ×4 (00:07→23:45)
[2017-12-20] MEDS: ALBUTEROL/IPRATROPIUM 3 ML NEB RESP TX SCH ×4 (01:37→19:16)
[2017-12-20] MEDS: hydrALAZINE 20 MG/1 ML VIAL IV PRN (01:41)
[2017-12-20] MEDS: THEOPHYLLINE 5.33 MG/ML 30 ML/BOTTLE NG SCH ×4 (03:18→21:19)
[2017-12-20 03:38] LABS: ABG Base Excess 5.4 MMOL/L (-2.5-2.5); ABG HCO3 29.8 MMOL/L (20-26); ABG Oxygen Saturation 94.4 % (95-100); ABG PCO2 43.1 MM HG (35-48); ABG PH 7.458 (7.35-7.45); ABG TCO2 31.2 MMOL/L (23-27)
[2017-12-20 06:03] LABS: Basophils % 0.2 % (0.0-0.8); Eosinophils % 0.2 % (0.00-10.9); Hematocrit 29.1 VOL% (35.7-47.0); Hemoglobin 8.8 GM/DL (12.0-16.0); Immature Granulocytes % 2.1 %; Immature Granulocytes Absolute 0.11 #; Lymphocytes # 0.9 10*3/uL (1.4-4.0); Lymphocytes % 16.2 % (21.3-54.2); Mean Corpuscular HGB Conc 30.2 GM/DL (32-36); Mean Corpuscular Hemoglobin 30 PG (27-34); Mean Corpuscular Volume 100.7 FL (87-102); Monocytes # 0.4 10*3/uL (0.11-0.8); Monocytes % 8.2 % (1.7-12.7); NRBC # 0.03 10*3/uL; Neutrophils # 3.8 10*3/uL (1.4-7.4); Neutrophils % 73.1 % (38.7-73.9); Platelet Count 246 T/CUMM (130-400); Red Blood Count 2.89 MC/CUMM (3.8-5.5); Red Cell Distribution Width 20.6 % (9.3-17.3); White Blood Count 5.3 T/CUMM (4-12)
[2017-12-20 06:28] LABS: Albumin 2.4 G/DL (3.4-5.0); Bilirubin,Total 0.9 MG/DL (0.2-1.0); Calcium 8.5 MG/DL (8.5-10.1); Osmolality,Calculated 281.3 MOS/KG (273-304); Potassium 3.2 MMOL/L (3.5-5.1)
[2017-12-20] MEDS: POTASSIUM CHLORIDE 20 MEQ/15 ML UDCUP PER TUBE PRN ×4 (06:55→17:51)
[2017-12-20] MEDS: INSULIN GLARGINE 100 UNIT/ML SUBCUT SCH ×2 (09:44→21:18)
[2017-12-20] MEDS: RANITIDINE 150 MG/10 ML 30 ML BOTTLE PER TUBE SCH ×2 (09:45→21:19)
[2017-12-20] MEDS: DESITIN 4OZ/NYSTATIN 15 GRAM MIXTURE PASTE TOP SCH ×2 (09:45→21:18)
[2017-12-20] MEDS: NEOMYCIN/POLYMYXIN/BACITRACIN OINT 0.9 GM PACK TOP SCH ×2 (09:46→21:19)
[2017-12-20] MEDS: FLUoxetine 20 MG CAPSULE PO SCH (09:46)
[2017-12-20] MEDS: FLUTICASONE 50 MCG NASAL SPRAY 16 GM BOTTLE BOTH NARES SCH (09:46)
[2017-12-20] MEDS: LORazepam 2 MG/1 ML VIAL IV PRN (10:22)
[2017-12-20] MEDS: ACETAMINOPHEN 325 MG TABLET PO PRN (12:28)
[2017-12-20] MEDS: FONDAPARINUX 2.5 MG/0.5 ML SYRINGE SUBCUT SCH (16:19)
[2017-12-20] MEDS: MORPHINE 4 MG/1 ML VIAL IV PRN (17:50)
[2017-12-21] MEDS: ALBUTEROL/IPRATROPIUM 3 ML NEB RESP TX SCH ×4 (00:36→20:19)
[2017-12-21] MEDS: MORPHINE 4 MG/1 ML VIAL IV PRN ×2 (03:04→19:26)
[2017-12-21] MEDS: THEOPHYLLINE 5.33 MG/ML 30 ML/BOTTLE NG SCH ×5 (03:06→21:43)
[2017-12-21 03:53] LABS: ABG Base Excess 3.8 MMOL/L (-2.5-2.5); ABG HCO3 28.1 MMOL/L (20-26); ABG Oxygen Saturation 97.3 % (95-100); ABG PCO2 41.7 MM HG (35-48); ABG PH 7.447 (7.35-7.45); ABG TCO2 29.4 MMOL/L (23-27); Allen Test Positive; Pt O2 Delivery Device Ventilator
[2017-12-21 04:21] LABS: Basophils % 0.2 % (0.0-0.8); Hematocrit 26.5 VOL% (35.7-47.0); Hemoglobin 8.3 GM/DL (12.0-16.0); Immature Granulocytes % 2.4 %; Immature Granulocytes Absolute 0.12 #; Lymphocytes # 1.1 10*3/uL (1.4-4.0); Lymphocytes % 22.3 % (21.3-54.2); Mean Corpuscular HGB Conc 31.3 GM/DL (32-36); Mean Corpuscular Hemoglobin 31 PG (27-34); Mean Corpuscular Volume 98.1 FL (87-102); Mean Platelet Volume 9.9 FL (9.6-12.0); Monocytes # 0.5 10*3/uL (0.11-0.8); Monocytes % 10.3 % (1.7-12.7); NRBC # 0.06 10*3/uL; Neutrophils # 3.2 10*3/uL (1.4-7.4); Neutrophils % 64.8 % (38.7-73.9); Platelet Count 311 T/CUMM (130-400); Red Cell Distribution Width 20.4 % (9.3-17.3); White Blood Count 4.9 T/CUMM (4-12)
[2017-12-21 04:40] LABS: Calcium 8.4 MG/DL (8.5-10.1); Osmolality,Calculated 282.1 MOS/KG (273-304); Potassium 3.1 MMOL/L (3.5-5.1)
[2017-12-21] MEDS: INSULIN LISPRO 100 UNIT/ML SUBCUT SCH ×3 (05:21→17:39)
[2017-12-21] MEDS: POTASSIUM CHLORIDE 20 MEQ/15 ML UDCUP PER TUBE PRN ×5 (05:25→21:04)
[2017-12-21] MEDS: MAGNESIUM SULF RIDER 4 GM in PREMIX 1 EACH IV PRN (05:25)
[2017-12-21] MEDS: INSULIN REGULAR 100 UNIT/ML SUBCUT SCH ×2 (07:43→15:44)
[2017-12-21] MEDS: LORazepam 2 MG/1 ML VIAL IV PRN (07:43)
[2017-12-21] MEDS: FLUTICASONE 50 MCG NASAL SPRAY 16 GM BOTTLE BOTH NARES SCH (08:43)
[2017-12-21] MEDS: RANITIDINE 150 MG/10 ML 30 ML BOTTLE PER TUBE SCH ×2 (08:43→21:05)
[2017-12-21] MEDS: INSULIN GLARGINE 100 UNIT/ML SUBCUT SCH ×2 (08:45→21:04)
[2017-12-21] MEDS: DESITIN 4OZ/NYSTATIN 15 GRAM MIXTURE PASTE TOP SCH ×2 (08:45→21:05)
[2017-12-21] MEDS: FLUoxetine 20 MG CAPSULE PO SCH (08:45)
[2017-12-21] MEDS: NEOMYCIN/POLYMYXIN/BACITRACIN OINT 0.9 GM PACK TOP SCH ×2 (08:49→21:05)
[2017-12-21] MEDS: MONTELUKAST 10 MG TABLET PO SCH (12:34)
[2017-12-21] MEDS: ALBUTEROL 0.4 MG/ML 30 ML/BOTTLE PO SCH ×2 (13:52→21:07)
[2017-12-21] MEDS: FONDAPARINUX 2.5 MG/0.5 ML SYRINGE SUBCUT SCH (15:44)
[2017-12-22] MEDS: INSULIN REGULAR 100 UNIT/ML SUBCUT SCH ×3 (00:59→17:23)
[2017-12-22] MEDS: MORPHINE 4 MG/1 ML VIAL IV PRN ×5 (01:01→20:22)
[2017-12-22] MEDS: INSULIN LISPRO 100 UNIT/ML SUBCUT SCH ×4 (01:01→17:15)
[2017-12-22] MEDS: ALBUTEROL/IPRATROPIUM 3 ML NEB RESP TX SCH ×4 (01:35→19:38)
[2017-12-22 04:20] LABS: Basophils % 0.2 % (0.0-0.8); Hematocrit 28.2 VOL% (35.7-47.0); Hemoglobin 8.4 GM/DL (12.0-16.0); Immature Granulocytes % 4.6 %; Immature Granulocytes Absolute 0.19 #; Lymphocytes % 24.3 % (21.3-54.2); Mean Corpuscular HGB Conc 29.8 GM/DL (32-36); Mean Corpuscular Hemoglobin 30 PG (27-34); Mean Corpuscular Volume 100.7 FL (87-102); Monocytes # 0.5 10*3/uL (0.11-0.8); Monocytes % 11.2 % (1.7-12.7); NRBC # 0.05 10*3/uL; Neutrophils # 2.4 10*3/uL (1.4-7.4); Neutrophils % 58.7 % (38.7-73.9); Platelet Count 361 T/CUMM (130-400); White Blood Count 4.1 T/CUMM (4-12)
[2017-12-22 04:42] LABS: ABG Base Excess 4.2 MMOL/L (-2.5-2.5); ABG HCO3 28.2 MMOL/L (20-26); ABG Oxygen Saturation 98.9 % (95-100); ABG PCO2 41.1 MM HG (35-48); ABG PH 7.449 (7.35-7.45); ABG TCO2 26.4 MMOL/L (23-27); Allen Test Positive; Pt O2 Delivery Device Ventilator
[2017-12-22 04:44] LABS: Hypochromasia 1+; Platelet Estimate Normal; Polychromasia Slight
[2017-12-22] MEDS: ALBUTEROL 0.4 MG/ML 30 ML/BOTTLE PO SCH ×3 (05:40→21:53)
[2017-12-22] MEDS: THEOPHYLLINE 5.33 MG/ML 30 ML/BOTTLE NG SCH ×4 (05:40→21:53)
[2017-12-22 05:52] LABS: Calcium 8.7 MG/DL (8.5-10.1); Osmolality,Calculated 280.3 MOS/KG (273-304); Potassium 3.4 MMOL/L (3.5-5.1)
[2017-12-22] MEDS: POTASSIUM CHLORIDE 20 MEQ/15 ML UDCUP PER TUBE PRN (06:05)
[2017-12-22] MEDS: MONTELUKAST 10 MG TABLET PO SCH (08:26)
[2017-12-22] MEDS: POTASSIUM CHLORIDE 20 MEQ/15 ML UDCUP PER TUBE SCH (08:27)
[2017-12-22] MEDS: INSULIN GLARGINE 100 UNIT/ML SUBCUT SCH ×2 (08:27→20:24)
[2017-12-22] MEDS: NEOMYCIN/POLYMYXIN/BACITRACIN OINT 0.9 GM PACK TOP SCH (08:28)
[2017-12-22] MEDS: RANITIDINE 150 MG/10 ML 30 ML BOTTLE PER TUBE SCH ×2 (08:28→20:29)
[2017-12-22] MEDS: FLUTICASONE 50 MCG NASAL SPRAY 16 GM BOTTLE BOTH NARES SCH (08:28)
[2017-12-22] MEDS: FLUoxetine 20 MG CAPSULE PO SCH (08:37)
[2017-12-22] MEDS: DESITIN 4OZ/NYSTATIN 15 GRAM MIXTURE PASTE TOP SCH ×2 (08:37→20:29)
[2017-12-22] MEDS: FONDAPARINUX 2.5 MG/0.5 ML SYRINGE SUBCUT SCH (15:46)
[2017-12-23] MEDS: ALBUTEROL/IPRATROPIUM 3 ML NEB RESP TX SCH ×4 (01:12→19:31)
[2017-12-23] MEDS: INSULIN LISPRO 100 UNIT/ML SUBCUT SCH ×4 (01:31→18:39)
[2017-12-23] MEDS: INSULIN REGULAR 100 UNIT/ML SUBCUT SCH ×3 (01:31→17:28)
[2017-12-23] MEDS: MORPHINE 4 MG/1 ML VIAL IV PRN ×5 (02:05→23:15)
[2017-12-23] MEDS: LORazepam 2 MG/1 ML VIAL IV PRN ×3 (02:33→23:14)
[2017-12-23 03:40] LABS: ABG Base Excess 6.3 MMOL/L (-2.5-2.5); ABG HCO3 30.2 MMOL/L (20-26); ABG Oxygen Saturation 99.1 % (95-100); ABG PCO2 44.3 MM HG (35-48); ABG PH 7.452 (7.35-7.45); ABG TCO2 28.5 MMOL/L (23-27)
[2017-12-23] MEDS: THEOPHYLLINE 5.33 MG/ML 30 ML/BOTTLE NG SCH ×4 (04:31→21:55)
[2017-12-23 05:19] LABS: Basophils % 0.5 % (0.0-0.8); Eosinophils % 0.8 % (0.00-10.9); Hematocrit 28.7 VOL% (35.7-47.0); Hemoglobin 8.8 GM/DL (12.0-16.0); Immature Granulocytes Absolute 0.27 #; Lymphocytes # 1.1 10*3/uL (1.4-4.0); Lymphocytes % 29.1 % (21.3-54.2); Mean Corpuscular HGB Conc 30.7 GM/DL (32-36); Mean Corpuscular Hemoglobin 30 PG (27-34); Mean Corpuscular Volume 97.6 FL (87-102); Mean Platelet Volume 10.5 FL (9.6-12.0); Monocytes # 0.4 10*3/uL (0.11-0.8); Monocytes % 10.1 % (1.7-12.7); NRBC # 0.05 10*3/uL; Neutrophils % 52.5 % (38.7-73.9); Platelet Count 166 T/CUMM (130-400); Red Blood Count 2.94 MC/CUMM (3.8-5.5); Red Cell Distribution Width 19.8 % (9.3-17.3); White Blood Count 3.9 T/CUMM (4-12)
[2017-12-23 05:35] LABS: Calcium 8.6 MG/DL (8.5-10.1); Osmolality,Calculated 282.1 MOS/KG (273-304); Potassium 3.5 MMOL/L (3.5-5.1)
[2017-12-23 06:02] LABS: Band Neutrophils 18 % (0-10); Lymphocytes 36 % (20-55); Metamyelocytes 2 %; Myelocytes 2 %; Nucleated Red Blood Cells 1 (0-5); Segmented Neutrophils 32 % (50-85); Total Cells Counted 100
[2017-12-23] MEDS: ALBUTEROL 0.4 MG/ML 30 ML/BOTTLE PO SCH ×3 (06:06→21:25)
[2017-12-23] MEDS: MAGNESIUM SULF RIDER 2 GM in PREMIX 1 EACH IV PRN (06:38)
[2017-12-23] MEDS: POTASSIUM CHLORIDE 20 MEQ/15 ML UDCUP PER TUBE PRN (06:44)
[2017-12-23] MEDS: POTASSIUM CHLORIDE 20 MEQ/15 ML UDCUP PER TUBE SCH (08:07)
[2017-12-23] MEDS: MONTELUKAST 10 MG TABLET PO SCH (08:07)
[2017-12-23] MEDS: INSULIN GLARGINE 100 UNIT/ML SUBCUT SCH ×2 (08:07→21:23)
[2017-12-23] MEDS: RANITIDINE 150 MG/10 ML 30 ML BOTTLE PER TUBE SCH ×2 (08:07→21:24)
[2017-12-23] MEDS: DESITIN 4OZ/NYSTATIN 15 GRAM MIXTURE PASTE TOP SCH ×2 (08:08→21:23)
[2017-12-23] MEDS: FLUoxetine 20 MG CAPSULE PO SCH (08:08)
[2017-12-23] MEDS: FLUTICASONE 50 MCG NASAL SPRAY 16 GM BOTTLE BOTH NARES SCH (08:08)
[2017-12-23 14:37] LABS: Apearance,Urine CLOUDY (Clear); Bacteria,Urine Moderate /HPF (Few); Bilirubin,Urine Negative (Negative); Blood, Urine Negative (Negative); Glucose,Urine (UA) Negative (Negative); Ketones,Urine Negative (Negative); Mucus,Urine Occasional /LPF (Occasional); Nitrite,Urine Negative (Negative); Protein,Urine 30 MG/DL; RBC,Urine 2 /HPF (0-4); Squamous Epithelial Cell,Urine Occasional /HPF (0-10); Transitional Epi Cells,Urine Occasional /HPF (<1); Urine Color Yellow (Yellow); Urine Urobilinogen < 2.0 EU/DL (0.2-1.0); WBC,Urine 28 /HPF (0-6)
[2017-12-23] MEDS: FONDAPARINUX 2.5 MG/0.5 ML SYRINGE SUBCUT SCH (14:38)
[2017-12-24] MEDS: hydrALAZINE 20 MG/1 ML VIAL IV PRN ×3 (00:07→15:03)
[2017-12-24] MEDS: INSULIN LISPRO 100 UNIT/ML SUBCUT SCH ×4 (00:20→18:13)
[2017-12-24] MEDS: INSULIN REGULAR 100 UNIT/ML SUBCUT SCH ×3 (00:20→16:02)
[2017-12-24] MEDS: ALBUTEROL/IPRATROPIUM 3 ML NEB RESP TX SCH ×4 (00:39→19:36)
[2017-12-24 03:13] LABS: ABG Base Excess 9.1 MMOL/L (-2.5-2.5); ABG HCO3 32.8 MMOL/L (20-26); ABG Oxygen Saturation 98.9 % (95-100); ABG PCO2 47.3 MM HG (35-48); ABG PH 7.465 (7.35-7.45); ABG TCO2 31.3 MMOL/L (23-27)
[2017-12-24] MEDS: THEOPHYLLINE 5.33 MG/ML 30 ML/BOTTLE NG SCH ×3 (04:44→16:57)
[2017-12-24] MEDS: ALBUTEROL 0.4 MG/ML 30 ML/BOTTLE PO SCH ×2 (05:30→15:00)
[2017-12-24 07:09] LABS: Basophils % 0.5 % (0.0-0.8); Eosinophils # 0.1 10*3/uL (0.0-0.87); Eosinophils % 2.3 % (0.00-10.9); Hematocrit 27.6 VOL% (35.7-47.0); Hemoglobin 8.7 GM/DL (12.0-16.0); Immature Granulocytes % 8.6 %; Immature Granulocytes Absolute 0.34 #; Lymphocytes # 1.1 10*3/uL (1.4-4.0); Mean Corpuscular HGB Conc 31.5 GM/DL (32-36); Mean Corpuscular Hemoglobin 31 PG (27-34); Mean Corpuscular Volume 96.8 FL (87-102); Mean Platelet Volume 9.4 FL (9.6-12.0); Monocytes # 0.5 10*3/uL (0.11-0.8); Monocytes % 11.6 % (1.7-12.7); NRBC # 0.07 10*3/uL; Platelet Count 452 T/CUMM (130-400); Red Blood Count 2.85 MC/CUMM (3.8-5.5); Red Cell Distribution Width 19.8 % (9.3-17.3)
[2017-12-24 07:34] LABS: Potassium 3.4 MMOL/L (3.5-5.1)
[2017-12-24 07:37] LABS: Anisocytosis Slight; Band Neutrophils 4 % (0-10); Lymphocytes 35 % (20-55); Macrocytosis 2+; Platelet Estimate Normal; Segmented Neutrophils 59 % (50-85); Total Cells Counted 100
[2017-12-24] MEDS: MORPHINE 4 MG/1 ML VIAL IV PRN ×4 (08:46→20:40)
[2017-12-24] MEDS: MAGNESIUM SULF RIDER 2 GM in PREMIX 1 EACH IV PRN (08:47)
[2017-12-24] MEDS: DESITIN 4OZ/NYSTATIN 15 GRAM MIXTURE PASTE TOP SCH ×2 (09:21→20:31)
[2017-12-24] MEDS ORDERED: SEVOFLURANE 1 UNIT/15 MINUTE INH ONE (12:16)
[2017-12-24] MEDS ORDERED: PROPOFOL 200 MG/20 ML VIAL IV ONE (12:16)
[2017-12-24] MEDS ORDERED: fentaNYL 100 MCG/2 ML VIAL ONE (12:17)
[2017-12-24] MEDS ORDERED: ROCURONIUM 100 MG/10 ML VIAL IV ONE (12:17)
[2017-12-24] MEDS ORDERED: ALBUTEROL INHALER 8 GM INH ONE (12:17)
[2017-12-24] MEDS ORDERED: ETOMIDATE 40 MG/20 ML VIAL IV ONE (12:17)
[2017-12-24] MEDS ORDERED: MIDAZOLAM 2 MG/2 ML VIAL ONE (12:17)
[2017-12-24] MEDS ORDERED: KETOROLAC 30 MG/1 ML VIAL ONE (12:17)
[2017-12-24] MEDS: CIPROFLOXACIN INJ 400 MG in PREMIX 1 EACH IV SCH ×2 (12:17→20:29)
[2017-12-24] MEDS ORDERED: DEXAMETHASONE 10 MG/1 ML VIAL ONE (12:17)
[2017-12-24] MEDS: FLUoxetine 20 MG CAPSULE PO SCH (12:17)
[2017-12-24] MEDS: POTASSIUM CHLORIDE 20 MEQ/15 ML UDCUP PER TUBE SCH (12:17)
[2017-12-24] MEDS ORDERED: ONDANSETRON 4 MG/2 ML VIAL ONE (12:17)
[2017-12-24] MEDS: MONTELUKAST 10 MG TABLET PO SCH (12:17)
[2017-12-24] MEDS: RANITIDINE 150 MG/10 ML 30 ML BOTTLE PER TUBE SCH ×2 (12:18→20:31)
[2017-12-24] MEDS: FLUTICASONE 50 MCG NASAL SPRAY 16 GM BOTTLE BOTH NARES SCH (12:19)
[2017-12-24] MEDS: INSULIN GLARGINE 100 UNIT/ML SUBCUT SCH ×2 (12:32→20:30)
[2017-12-24] MEDS: ACETAMINOPHEN 325 MG TABLET PO PRN (17:41)
[2017-12-24] MEDS: POTASSIUM CHLORIDE 20 MEQ/15 ML UDCUP PER TUBE PRN ×2 (18:16→20:40)
[2017-12-24] MEDS: METOPROLOL TARTRATE 25 MG TABLET PO SCH (20:30)
[2017-12-25] MEDS: ALBUTEROL/IPRATROPIUM 3 ML NEB RESP TX SCH ×4 (00:22→19:23)
[2017-12-25] MEDS: ALBUTEROL 0.4 MG/ML 30 ML/BOTTLE PO SCH ×4 (00:28→22:03)
[2017-12-25] MEDS: THEOPHYLLINE 5.33 MG/ML 30 ML/BOTTLE NG SCH ×5 (00:29→22:03)
[2017-12-25] MEDS: INSULIN LISPRO 100 UNIT/ML SUBCUT SCH ×4 (01:10→17:43)
[2017-12-25] MEDS: INSULIN REGULAR 100 UNIT/ML SUBCUT SCH ×3 (01:14→17:42)
[2017-12-25] MEDS: MORPHINE 4 MG/1 ML VIAL IV PRN ×5 (01:15→20:06)
[2017-12-25] MEDS: LORazepam 2 MG/1 ML VIAL IV PRN ×2 (02:05→17:36)
[2017-12-25 04:22] LABS: ABG Base Excess 8.4 MMOL/L (-2.5-2.5); ABG HCO3 32.2 MMOL/L (20-26); ABG PCO2 49.3 MM HG (35-48); ABG PH 7.443 (7.35-7.45); ABG PO2 77.2 MM HG (80-95); ABG TCO2 31.1 MMOL/L (23-27); Allen Test Positive; Pt O2 Delivery Device Ventilator
[2017-12-25 05:40] LABS: Basophils % 0.5 % (0.0-0.8); Eosinophils # 0.1 10*3/uL (0.0-0.87); Eosinophils % 1.4 % (0.00-10.9); Hematocrit 27.3 VOL% (35.7-47.0); Hemoglobin 8.5 GM/DL (12.0-16.0); Immature Granulocytes % 7.8 %; Immature Granulocytes Absolute 0.34 #; Lymphocytes # 1.3 10*3/uL (1.4-4.0); Mean Corpuscular HGB Conc 31.1 GM/DL (32-36); Mean Corpuscular Hemoglobin 31 PG (27-34); Mean Corpuscular Volume 98.2 FL (87-102); Mean Platelet Volume 9.3 FL (9.6-12.0); Monocytes # 0.5 10*3/uL (0.11-0.8); Monocytes % 10.3 % (1.7-12.7); NRBC # 0.05 10*3/uL; Neutrophils # 2.2 10*3/uL (1.4-7.4); Platelet Count 488 T/CUMM (130-400); Red Blood Count 2.78 MC/CUMM (3.8-5.5); Red Cell Distribution Width 19.8 % (9.3-17.3); White Blood Count 4.4 T/CUMM (4-12)
[2017-12-25 05:56] LABS: Calcium 8.5 MG/DL (8.5-10.1); Osmolality,Calculated 279.4 MOS/KG (273-304); Potassium 3.7 MMOL/L (3.5-5.1)
[2017-12-25 07:55] LABS: Hypochromasia 2+; Lymphocytes 24 % (20-55); Macrocytosis 1+; Myelocytes 3 %; Nucleated Red Blood Cells 1 (0-5); Platelet Estimate Increased; Polychromasia Slight; Segmented Neutrophils 60 % (50-85); Total Cells Counted 100
[2017-12-25] MEDS: CIPROFLOXACIN INJ 400 MG in PREMIX 1 EACH IV SCH ×2 (08:31→20:03)
[2017-12-25] MEDS: POTASSIUM CHLORIDE 20 MEQ/15 ML UDCUP PER TUBE SCH (08:32)
[2017-12-25] MEDS: INSULIN GLARGINE 100 UNIT/ML SUBCUT SCH ×2 (08:32→20:03)
[2017-12-25] MEDS: MONTELUKAST 10 MG TABLET PO SCH (08:33)
[2017-12-25] MEDS: FLUoxetine 20 MG CAPSULE PO SCH (08:33)
[2017-12-25] MEDS: LISINOPRIL 10 MG TABLET PO SCH (08:33)
[2017-12-25] MEDS: FLUTICASONE 50 MCG NASAL SPRAY 16 GM BOTTLE BOTH NARES SCH (08:33)
[2017-12-25] MEDS: METOPROLOL TARTRATE 25 MG TABLET PO SCH ×2 (08:33→20:04)
[2017-12-25] MEDS: DESITIN 4OZ/NYSTATIN 15 GRAM MIXTURE PASTE TOP SCH ×2 (08:34→20:04)
[2017-12-25] MEDS: RANITIDINE 150 MG/10 ML 30 ML BOTTLE PER TUBE SCH ×2 (10:54→20:04)
[2017-12-25] MEDS: FONDAPARINUX 2.5 MG/0.5 ML SYRINGE SUBCUT SCH (15:16)
[2017-12-26] MEDS: MORPHINE 4 MG/1 ML VIAL IV PRN ×6 (00:01→23:46)
[2017-12-26] MEDS: LORazepam 2 MG/1 ML VIAL IV PRN ×3 (00:02→19:29)
[2017-12-26] MEDS: INSULIN LISPRO 100 UNIT/ML SUBCUT SCH ×5 (00:02→23:44)
[2017-12-26] MEDS: INSULIN REGULAR 100 UNIT/ML SUBCUT SCH ×4 (00:02→23:43)
[2017-12-26] MEDS: ALBUTEROL/IPRATROPIUM 3 ML NEB RESP TX SCH ×4 (00:59→19:22)
[2017-12-26] MEDS: THEOPHYLLINE 5.33 MG/ML 30 ML/BOTTLE NG SCH ×4 (04:11→21:17)
[2017-12-26 04:12] LABS: ABG Base Excess 9.4 MMOL/L (-2.5-2.5); ABG HCO3 33.2 MMOL/L (20-26); ABG Oxygen Saturation 99.6 % (95-100); ABG PCO2 53.1 MM HG (35-48); ABG TCO2 32.3 MMOL/L (23-27); Allen Test Positive
[2017-12-26 05:09] LABS: Basophils % 0.4 % (0.0-0.8); Eosinophils # 0.1 10*3/uL (0.0-0.87); Hematocrit 28.8 VOL% (35.7-47.0); Hemoglobin 8.6 GM/DL (12.0-16.0); Immature Granulocytes % 7.5 %; Immature Granulocytes Absolute 0.41 #; Lymphocytes # 1.6 10*3/uL (1.4-4.0); Lymphocytes % 28.7 % (21.3-54.2); Mean Corpuscular HGB Conc 29.9 GM/DL (32-36); Mean Corpuscular Hemoglobin 31 PG (27-34); Mean Corpuscular Volume 102.5 FL (87-102); Mean Platelet Volume 9.3 FL (9.6-12.0); Monocytes # 0.7 10*3/uL (0.11-0.8); NRBC # 0.05 10*3/uL; Neutrophils # 2.7 10*3/uL (1.4-7.4); Neutrophils % 49.4 % (38.7-73.9); Platelet Count 508 T/CUMM (130-400); Red Blood Count 2.81 MC/CUMM (3.8-5.5); Red Cell Distribution Width 19.7 % (9.3-17.3); White Blood Count 5.5 T/CUMM (4-12)
[2017-12-26 05:41] LABS: Potassium 3.5 MMOL/L (3.5-5.1)
[2017-12-26 05:54] LABS: Anisocytosis 1+; Band Neutrophils 3 % (0-10); Lymphocytes 36 % (20-55); Macrocytosis 3+; Platelet Estimate Increased; Segmented Neutrophils 52 % (50-85); Total Cells Counted 100
[2017-12-26] MEDS: ALBUTEROL 0.4 MG/ML 30 ML/BOTTLE PO SCH ×3 (08:00→21:17)
[2017-12-26] MEDS: FLUTICASONE 50 MCG NASAL SPRAY 16 GM BOTTLE BOTH NARES SCH (09:05)
[2017-12-26] MEDS: POTASSIUM CHLORIDE 20 MEQ/15 ML UDCUP PER TUBE SCH (09:05)
[2017-12-26] MEDS: METOPROLOL TARTRATE 25 MG TABLET PO SCH ×2 (09:06→20:52)
[2017-12-26] MEDS: LISINOPRIL 10 MG TABLET PO SCH (09:06)
[2017-12-26] MEDS: INSULIN GLARGINE 100 UNIT/ML SUBCUT SCH ×2 (09:06→20:51)
[2017-12-26] MEDS: MONTELUKAST 10 MG TABLET PO SCH (09:06)
[2017-12-26] MEDS: FLUoxetine 20 MG CAPSULE PO SCH (09:06)
[2017-12-26] MEDS: DESITIN 4OZ/NYSTATIN 15 GRAM MIXTURE PASTE TOP SCH ×2 (09:07→20:52)
[2017-12-26] MEDS: RANITIDINE 150 MG/10 ML 30 ML BOTTLE PER TUBE SCH ×2 (09:07→20:53)
[2017-12-26] MEDS: CIPROFLOXACIN INJ 400 MG in PREMIX 1 EACH IV SCH ×2 (09:10→20:50)
[2017-12-26] MEDS: FONDAPARINUX 2.5 MG/0.5 ML SYRINGE SUBCUT SCH (14:48)
[2017-12-27] MEDS: ALBUTEROL/IPRATROPIUM 3 ML NEB RESP TX SCH ×4 (00:44→19:46)
[2017-12-27] MEDS: MORPHINE 4 MG/1 ML VIAL IV PRN ×4 (04:16→19:47)
[2017-12-27] MEDS: THEOPHYLLINE 5.33 MG/ML 30 ML/BOTTLE NG SCH ×4 (04:17→21:19)
[2017-12-27 04:24] LABS: ABG Base Excess 9.5 MMOL/L (-2.5-2.5); ABG HCO3 33.2 MMOL/L (20-26); ABG Oxygen Saturation 98.9 % (95-100); ABG PCO2 55.7 MM HG (35-48); ABG PH 7.414 (7.35-7.45); ABG TCO2 32.8 MMOL/L (23-27)
[2017-12-27] MEDS ORDERED: ALTEPLASE 2 MG VIAL INTRACATH ONE (04:30)
[2017-12-27] MEDS: INSULIN LISPRO 100 UNIT/ML SUBCUT SCH ×3 (05:09→18:00)
[2017-12-27] MEDS: ALBUTEROL 0.4 MG/ML 30 ML/BOTTLE PO SCH ×3 (05:26→21:19)
[2017-12-27 05:40] LABS: Basophils % 0.5 % (0.0-0.8); Eosinophils # 0.2 10*3/uL (0.0-0.87); Eosinophils % 2.8 % (0.00-10.9); Hematocrit 28.8 VOL% (35.7-47.0); Hemoglobin 8.9 GM/DL (12.0-16.0); Immature Granulocytes % 9.2 %; Immature Granulocytes Absolute 0.52 #; Lymphocytes # 1.7 10*3/uL (1.4-4.0); Lymphocytes % 30.5 % (21.3-54.2); Mean Corpuscular HGB Conc 30.9 GM/DL (32-36); Mean Corpuscular Hemoglobin 31 PG (27-34); Mean Corpuscular Volume 99.3 FL (87-102); Mean Platelet Volume 9.3 FL (9.6-12.0); Monocytes # 0.6 10*3/uL (0.11-0.8); Monocytes % 10.8 % (1.7-12.7); NRBC # 0.05 10*3/uL; Neutrophils # 2.6 10*3/uL (1.4-7.4); Neutrophils % 46.2 % (38.7-73.9); Platelet Count 511 T/CUMM (130-400); Red Cell Distribution Width 19.3 % (9.3-17.3); White Blood Count 5.6 T/CUMM (4-12)
[2017-12-27 05:59] LABS: Prealbumin 16.4 MG/DL (20-40)
[2017-12-27 06:05] LABS: Eosinophils 5 % (0-10); Hypochromasia 1+; Lymphocytes 32 % (20-55); Myelocytes 1 %; Nucleated Red Blood Cells 1 (0-5); Segmented Neutrophils 52 % (50-85); Total Cells Counted 100
[2017-12-27 06:06] LABS: Macrocytosis 1+; Polychromasia Slight; Stomatocytes Slight
[2017-12-27 06:07] LABS: Platelet Estimate Increased
[2017-12-27] MEDS: MONTELUKAST 10 MG TABLET PO SCH (08:38)
[2017-12-27] MEDS: FLUoxetine 20 MG CAPSULE PO SCH (08:39)
[2017-12-27] MEDS: LISINOPRIL 10 MG TABLET PO SCH (08:39)
[2017-12-27] MEDS: NITROFURANTOIN MACRO/MONO 100 MG CAPSULE PO SCH ×2 (08:39→20:26)
[2017-12-27] MEDS: POTASSIUM CHLORIDE 20 MEQ/15 ML UDCUP PER TUBE SCH (08:39)
[2017-12-27] MEDS: METOPROLOL TARTRATE 25 MG TABLET PO SCH ×2 (08:39→20:26)
[2017-12-27] MEDS: RANITIDINE 150 MG/10 ML 30 ML BOTTLE PER TUBE SCH ×2 (08:41→20:28)
[2017-12-27] MEDS: DESITIN 4OZ/NYSTATIN 15 GRAM MIXTURE PASTE TOP SCH ×2 (08:41→20:27)
[2017-12-27] MEDS: FLUTICASONE 50 MCG NASAL SPRAY 16 GM BOTTLE BOTH NARES SCH (08:41)
[2017-12-27] MEDS: INSULIN REGULAR 100 UNIT/ML SUBCUT SCH ×2 (08:52→18:00)
[2017-12-27] MEDS: INSULIN GLARGINE 100 UNIT/ML SUBCUT SCH ×2 (08:52→20:26)
[2017-12-27 09:49] LABS: Calcium 8.9 MG/DL (8.5-10.1)
[2017-12-27] MEDS: FONDAPARINUX 2.5 MG/0.5 ML SYRINGE SUBCUT SCH (14:58)
[2017-12-27] MEDS: LORazepam 2 MG/1 ML VIAL IV PRN (19:48)
[2017-12-28] MEDS: INSULIN LISPRO 100 UNIT/ML SUBCUT SCH ×4 (00:04→21:37)
[2017-12-28] MEDS: INSULIN REGULAR 100 UNIT/ML SUBCUT SCH ×3 (00:07→21:36)
[2017-12-28] MEDS: MORPHINE 4 MG/1 ML VIAL IV PRN ×4 (00:08→16:50)
[2017-12-28] MEDS: ALBUTEROL/IPRATROPIUM 3 ML NEB RESP TX SCH ×4 (01:06→20:20)
[2017-12-28 03:19] LABS: ABG Base Excess 9.7 MMOL/L (-2.5-2.5); ABG HCO3 33.4 MMOL/L (20-26); ABG Oxygen Saturation 99.7 % (95-100); ABG PCO2 50.1 MM HG (35-48); ABG PH 7.452 (7.35-7.45); ABG TCO2 32.2 MMOL/L (23-27); Allen Test Positive
[2017-12-28] MEDS: THEOPHYLLINE 5.33 MG/ML 30 ML/BOTTLE NG SCH ×4 (04:26→23:09)
[2017-12-28 04:43] LABS: Calcium 8.8 MG/DL (8.5-10.1); Osmolality,Calculated 272.7 MOS/KG (273-304); Potassium 3.8 MMOL/L (3.5-5.1)
[2017-12-28 05:02] LABS: Basophils % 0.5 % (0.0-0.8); Eosinophils # 0.1 10*3/uL (0.0-0.87); Eosinophils % 1.4 % (0.00-10.9); Hematocrit 27.7 VOL% (35.7-47.0); Hemoglobin 8.9 GM/DL (12.0-16.0); Immature Granulocytes % 7.4 %; Immature Granulocytes Absolute 0.49 #; Lymphocytes # 1.6 10*3/uL (1.4-4.0); Mean Corpuscular HGB Conc 32.1 GM/DL (32-36); Mean Corpuscular Hemoglobin 32 PG (27-34); Mean Corpuscular Volume 98.2 FL (87-102); Mean Platelet Volume 9.2 FL (9.6-12.0); Monocytes # 0.6 10*3/uL (0.11-0.8); Monocytes % 9.2 % (1.7-12.7); Neutrophils # 3.8 10*3/uL (1.4-7.4); Neutrophils % 57.5 % (38.7-73.9); Platelet Count 496 T/CUMM (130-400); Red Blood Count 2.82 MC/CUMM (3.8-5.5); Red Cell Distribution Width 18.4 % (9.3-17.3); White Blood Count 6.6 T/CUMM (4-12)
[2017-12-28 05:50] LABS: Band Neutrophils 5 % (0-10); Hypochromasia 1+; Lymphocytes 24 % (20-55); Myelocytes 1 %; Ovalocytes Slight; Platelet Estimate Adequate; Segmented Neutrophils 63 % (50-85); Total Cells Counted 100
[2017-12-28 05:51] LABS: Macrocytosis Slight; Polychromasia Slight
[2017-12-28] MEDS: POTASSIUM CHLORIDE 20 MEQ/15 ML UDCUP PER TUBE PRN (06:08)
[2017-12-28] MEDS: MAGNESIUM SULF RIDER 2 GM in PREMIX 1 EACH IV PRN (06:09)
[2017-12-28] MEDS: ALBUTEROL 0.4 MG/ML 30 ML/BOTTLE PO SCH ×3 (06:09→23:09)
[2017-12-28] MEDS: RANITIDINE 150 MG/10 ML 30 ML BOTTLE PER TUBE SCH ×2 (08:55→23:09)
[2017-12-28] MEDS: NITROFURANTOIN MACRO/MONO 100 MG CAPSULE PO SCH ×2 (08:55→23:08)
[2017-12-28] MEDS: METOPROLOL TARTRATE 25 MG TABLET PO SCH ×2 (08:55→23:08)
[2017-12-28] MEDS: DESITIN 4OZ/NYSTATIN 15 GRAM MIXTURE PASTE TOP SCH ×2 (08:55→23:08)
[2017-12-28] MEDS: INSULIN GLARGINE 100 UNIT/ML SUBCUT SCH ×2 (08:55→23:08)
[2017-12-28] MEDS: FLUTICASONE 50 MCG NASAL SPRAY 16 GM BOTTLE BOTH NARES SCH (08:55)
[2017-12-28] MEDS ORDERED: OXYMETAZOLINE 0.05% NASAL SPRAY 15 ML BOTTLE ONE (09:38)
[2017-12-28] MEDS ORDERED: EPINEPHrine 1 MG/10 ML SYRINGE ONE ×3 (09:44→18:33)
[2017-12-28] MEDS ORDERED: LIDOCAINE 1%/EPI INJ 20 ML VIAL ONE (13:34)
[2017-12-28] MEDS ORDERED: TRIAMCINOLONE ACETONIDE 40 MG/1 ML VIAL ONE (13:34)
[2017-12-28] MEDS ORDERED: SUGAMMADEX 200 MG/2 ML VIAL IV ONE (14:18)
[2017-12-28] MEDS ORDERED: ceFAZolin 1,000 MG VIAL ONE (15:12)
[2017-12-28] MEDS ORDERED: SEVOFLURANE 1 UNIT/15 MINUTE INH ONE (16:15)
[2017-12-28] MEDS ORDERED: PHENYLEPHRINE 1 MG/10 ML SYRINGE IV ONE (16:16)
[2017-12-28] MEDS ORDERED: fentaNYL 100 MCG/2 ML VIAL ONE (16:16)
[2017-12-28] MEDS ORDERED: ROCURONIUM 100 MG/10 ML VIAL IV ONE (16:16)
[2017-12-28] MEDS ORDERED: MIDAZOLAM 2 MG/2 ML VIAL ONE (16:16)
[2017-12-28] MEDS: POTASSIUM CHLORIDE 20 MEQ/15 ML UDCUP PER TUBE SCH (17:12)
[2017-12-28] MEDS: FLUoxetine 20 MG CAPSULE PO SCH (17:12)
[2017-12-28] MEDS: MONTELUKAST 10 MG TABLET PO SCH (17:12)
[2017-12-28] MEDS: LISINOPRIL 10 MG TABLET PO SCH (17:12)
[2017-12-28] MEDS: FONDAPARINUX 2.5 MG/0.5 ML SYRINGE SUBCUT SCH (17:13)
[2017-12-28] MEDS ORDERED: EPINEPHrine 1 MG/ML VIAL ONE ×2 (18:28→18:34)
[2017-12-28] MEDS ORDERED: PHENYLEPHRINE DRIP 40 MG/250 ML PREMIX IV ONE (19:39)
[2017-12-28] MEDS: PHENYLEPHRINE DRIP 40 MG/250 ML PREMIX IV PRN ×2 (19:45→21:38)
[2017-12-28 19:49] LABS: ABG Base Excess -6.8 MMOL/L (-2.5-2.5); ABG HCO3 18.9 MMOL/L (20-26); ABG PCO2 57.1 MM HG (35-48); ABG TCO2 20.5 MMOL/L (23-27); Allen Test Positive; Pt O2 Delivery Device Ventilator
[2017-12-28 19:58] LABS: ABG PH 7.193 (7.35-7.45)
[2017-12-28 20:20] LABS: Basophils # 0.2 10*3/uL (0.0-0.2); Basophils % 0.7 % (0.0-0.8); Eosinophils # 0.2 10*3/uL (0.0-0.87); Eosinophils % 0.6 % (0.00-10.9); Hematocrit 34.3 VOL% (35.7-47.0); Hemoglobin 9.9 GM/DL (12.0-16.0); Immature Granulocytes % 11.9 %; Immature Granulocytes Absolute 3.13 #; Lymphocytes # 7.2 10*3/uL (1.4-4.0); Lymphocytes % 27.4 % (21.3-54.2); Mean Corpuscular HGB Conc 28.9 GM/DL (32-36); Mean Corpuscular Hemoglobin 30 PG (27-34); Mean Corpuscular Volume 104.6 FL (87-102); Mean Platelet Volume 9.4 FL (9.6-12.0); Monocytes # 0.9 10*3/uL (0.11-0.8); Monocytes % 3.5 % (1.7-12.7); NRBC # 0.53 10*3/uL; Neutrophils # 14.7 10*3/uL (1.4-7.4); Neutrophils % 55.9 % (38.7-73.9); Platelet Count 652 T/CUMM (130-400); Red Blood Count 3.28 MC/CUMM (3.8-5.5); Red Cell Distribution Width 18.7 % (9.3-17.3); White Blood Count 26.3 T/CUMM (4-12)
[2017-12-28 20:30] LABS: Albumin 2.7 G/DL (3.4-5.0); Bilirubin,Total 0.7 MG/DL (0.2-1.0); Calcium 9.9 MG/DL (8.5-10.1); Osmolality,Calculated 291.3 MOS/KG (273-304); Potassium 5.9 MMOL/L (3.5-5.1); Total Protein 6.5 G/DL (6.4-8.3)
[2017-12-28] MEDS ORDERED: SODIUM CHLORIDE 0.9% 1,000 ML IV ONE (21:00)
[2017-12-28] MEDS ORDERED: PHENYLEPHRINE INJ 160 MG in SODIUM CHLORIDE 0.9% 234 ML IV PRN (21:12)
[2017-12-28 21:38] LABS: Atypical Lymphocytes Few; Band Neutrophils 3 % (0-10); Eosinophils 1 % (0-10); Lymphocytes 30 % (20-55); Nucleated Red Blood Cells 1 (0-5); Platelet Estimate Increased; Segmented Neutrophils 63 % (50-85); Total Cells Counted 100
[2017-12-28 21:39] LABS: Polychromasia Few
[2017-12-28] MEDS: LORazepam INJ 40 MG in DEXTROSE 5% 30 ML IV PRN (21:53)
[2017-12-29] MEDS: INSULIN LISPRO 100 UNIT/ML SUBCUT SCH ×4 (00:17→17:48)
[2017-12-29] MEDS: INSULIN REGULAR 100 UNIT/ML SUBCUT SCH ×3 (00:17→16:12)
[2017-12-29 00:57] LABS: HIV Antigen/Antibody Result Nonreactive (Nonreactive); Hepatitis A Ab IgM Quant 0.24 Index; Hepatitis A Ab IgM Result Negative (Negative); Hepatitis B Core IgM Quant 0.16 Index; Hepatitis B Core IgM Result Negative (Negative); Hepatitis B Surface Ag Quant < 0.10 Index; Hepatitis B Surface Ag Result Negative (Negative)
[2017-12-29] MEDS: LORazepam INJ 40 MG in DEXTROSE 5% 30 ML IV PRN ×5 (01:39→18:50)
[2017-12-29] MEDS: ALBUTEROL/IPRATROPIUM 3 ML NEB RESP TX SCH ×4 (01:47→20:23)
[2017-12-29] MEDS: THEOPHYLLINE 5.33 MG/ML 30 ML/BOTTLE NG SCH ×4 (03:28→23:16)
[2017-12-29 03:47] LABS: ABG Base Excess 8.7 MMOL/L (-2.5-2.5); ABG PCO2 62.3 MM HG (35-48); ABG PH 7.369 (7.35-7.45); ABG PO2 43.2 MM HG (80-95)
[2017-12-29 04:19] LABS: ABG Base Excess 8.6 MMOL/L (-2.5-2.5); ABG HCO3 32.3 MMOL/L (20-26); ABG Oxygen Saturation 99.4 % (95-100); ABG PCO2 52.5 MM HG (35-48); ABG PH 7.424 (7.35-7.45); ABG TCO2 31.4 MMOL/L (23-27)
[2017-12-29] MEDS: ALBUTEROL 0.4 MG/ML 30 ML/BOTTLE PO SCH ×3 (05:37→22:04)
[2017-12-29 07:06] LABS: Basophils % 0.2 % (0.0-0.8); Hemoglobin 9.4 GM/DL (12.0-16.0); Lymphocytes % 8.4 % (21.3-54.2)
[2017-12-29 07:11] LABS: Hematocrit 30.1 VOL% (35.7-47.0); Immature Granulocytes % 4.5 %; Immature Granulocytes Absolute 0.59 #; Lymphocytes # 1.1 10*3/uL (1.4-4.0); Mean Corpuscular HGB Conc 31.2 GM/DL (32-36); Mean Corpuscular Hemoglobin 31 PG (27-34); Mean Corpuscular Volume 100.3 FL (87-102); Monocytes # 0.7 10*3/uL (0.11-0.8); Monocytes % 5.1 % (1.7-12.7); NRBC # 0.03 10*3/uL; Neutrophils # 10.8 10*3/uL (1.4-7.4); Neutrophils % 81.8 % (38.7-73.9); Red Cell Distribution Width 19.1 % (9.3-17.3)
[2017-12-29 07:12] LABS: Platelet Count 407 T/CUMM (130-400); White Blood Count 13.2 T/CUMM (4-12)
[2017-12-29 07:30] LABS: Band Neutrophils 2 % (0-10); Hypochromasia 1+; Lymphocytes 5 % (20-55); Nucleated Red Blood Cells 1 (0-5); Ovalocytes Slight; Platelet Estimate Adequate; Segmented Neutrophils 89 % (50-85); Total Cells Counted 100
[2017-12-29 07:37] LABS: Osmolality,Calculated 292.6 MOS/KG (273-304); Potassium 3.7 MMOL/L (3.5-5.1)
[2017-12-29] MEDS: INSULIN GLARGINE 100 UNIT/ML SUBCUT SCH ×2 (09:17→21:33)
[2017-12-29] MEDS: FLUTICASONE 50 MCG NASAL SPRAY 16 GM BOTTLE BOTH NARES SCH (09:17)
[2017-12-29] MEDS: LISINOPRIL 10 MG TABLET PO SCH (09:18)
[2017-12-29] MEDS: FLUoxetine 20 MG CAPSULE PO SCH (09:18)
[2017-12-29] MEDS: POTASSIUM CHLORIDE 20 MEQ/15 ML UDCUP PER TUBE SCH (09:18)
[2017-12-29] MEDS: METOPROLOL TARTRATE 25 MG TABLET PO SCH ×2 (09:18→21:36)
[2017-12-29] MEDS: NITROFURANTOIN MACRO/MONO 100 MG CAPSULE PO SCH (09:18)
[2017-12-29] MEDS: MONTELUKAST 10 MG TABLET PO SCH (09:19)
[2017-12-29] MEDS: RANITIDINE 150 MG/10 ML 30 ML BOTTLE PER TUBE SCH ×2 (09:19→21:37)
[2017-12-29] MEDS: DESITIN 4OZ/NYSTATIN 15 GRAM MIXTURE PASTE TOP SCH ×2 (13:19→21:35)
[2017-12-29] MEDS: LEVOFLOXACIN INJ 750 MG in PREMIX 1 EACH IV SCH (14:03)
[2017-12-29] MEDS: FONDAPARINUX 2.5 MG/0.5 ML SYRINGE SUBCUT SCH (15:52)
[2017-12-29] MEDS: LINEZOLID INJ 600 MG in PREMIX 1 EACH IV SCH (15:52)
[2017-12-29] MEDS ORDERED: ACETAMINOPHEN 325 MG TABLET PO PRN (21:43)
[2017-12-30] MEDS: LORazepam INJ 40 MG in DEXTROSE 5% 30 ML IV PRN ×2 (00:01→03:57)
[2017-12-30] MEDS: INSULIN LISPRO 100 UNIT/ML SUBCUT SCH ×4 (00:28→19:09)
[2017-12-30] MEDS: INSULIN REGULAR 100 UNIT/ML SUBCUT SCH ×3 (00:28→19:08)
[2017-12-30] MEDS: ALBUTEROL/IPRATROPIUM 3 ML NEB RESP TX SCH ×4 (01:25→20:46)
[2017-12-30] MEDS: LINEZOLID INJ 600 MG in PREMIX 1 EACH IV SCH ×2 (02:48→15:20)
[2017-12-30 04:37] LABS: ABG Base Excess 9.1 MMOL/L (-2.5-2.5); ABG HCO3 32.9 MMOL/L (20-26); ABG PCO2 48.1 MM HG (35-48); ABG PH 7.458 (7.35-7.45); ABG TCO2 31.7 MMOL/L (23-27); Allen Test Positive; Pt O2 Delivery Device Ventilator
[2017-12-30] MEDS: ALBUTEROL 0.4 MG/ML 30 ML/BOTTLE PO SCH ×2 (06:01→19:07)
[2017-12-30] MEDS: THEOPHYLLINE 5.33 MG/ML 30 ML/BOTTLE NG SCH ×3 (06:02→19:08)
[2017-12-30] MEDS: PHENYLEPHRINE DRIP 40 MG/250 ML PREMIX IV PRN (07:20)
[2017-12-30 08:10] LABS: INR 1.1; Partial Thromboplastin Time 30.8 SECS (0-40)
[2017-12-30 08:16] LABS: Prealbumin 14.6 MG/DL (20-40)
[2017-12-30 08:27] LABS: Basophils % 0.2 % (0.0-0.8); Hematocrit 24.8 VOL% (35.7-47.0); Immature Granulocytes Absolute 0.25 #; Lymphocytes # 2.1 10*3/uL (1.4-4.0); Lymphocytes % 16.1 % (21.3-54.2); Mean Corpuscular HGB Conc 30.2 GM/DL (32-36); Mean Corpuscular Hemoglobin 30 PG (27-34); Mean Platelet Volume 9.3 FL (9.6-12.0); Monocytes # 1.2 10*3/uL (0.11-0.8); Monocytes % 9.7 % (1.7-12.7); NRBC # 0.02 10*3/uL; Neutrophils # 9.2 10*3/uL (1.4-7.4); Red Blood Count 2.48 MC/CUMM (3.8-5.5); Red Cell Distribution Width 19.4 % (9.3-17.3); White Blood Count 12.7 T/CUMM (4-12)
[2017-12-30 08:33] LABS: Hemoglobin 7.5 GM/DL (12.0-16.0); Platelet Count 324 T/CUMM (130-400)
[2017-12-30] MEDS ORDERED: MIDAZOLAM 100 MG in SODIUM CHLORIDE 0.9% 80 ML IV PRN (08:43)
[2017-12-30] MEDS ORDERED: SODIUM CHLORIDE 0.9% 1,000 ML IV PRN (08:59)
[2017-12-30] MEDS: FLUTICASONE 50 MCG NASAL SPRAY 16 GM BOTTLE BOTH NARES SCH (09:12)
[2017-12-30] MEDS: INSULIN GLARGINE 100 UNIT/ML SUBCUT SCH (09:12)
[2017-12-30] MEDS: LISINOPRIL 10 MG TABLET PO SCH (09:13)
[2017-12-30] MEDS: METOPROLOL TARTRATE 25 MG TABLET PO SCH (09:13)
[2017-12-30] MEDS: POTASSIUM CHLORIDE 20 MEQ/15 ML UDCUP PER TUBE SCH (09:13)
[2017-12-30] MEDS: RANITIDINE 150 MG/10 ML 30 ML BOTTLE PER TUBE SCH (09:14)
[2017-12-30] MEDS: MONTELUKAST 10 MG TABLET PO SCH (09:14)
[2017-12-30] MEDS: DESITIN 4OZ/NYSTATIN 15 GRAM MIXTURE PASTE TOP SCH (09:14)
[2017-12-30 13:16] LABS: Calcium 8.7 MG/DL (8.5-10.1); Osmolality,Calculated 293.7 MOS/KG (273-304); Potassium 3.5 MMOL/L (3.5-5.1)
[2017-12-30] MEDS: SODIUM CHLORIDE 0.45% 1,000 ML IV SCH (13:19)
[2017-12-30] MEDS: LEVOFLOXACIN INJ 750 MG in PREMIX 1 EACH IV SCH (13:19)
[2017-12-30] MEDS ORDERED: GLYCOPYRROLATE 0.4 MG/2 ML VIAL IV ONE (16:14)
[2017-12-30] MEDS: FONDAPARINUX 2.5 MG/0.5 ML SYRINGE SUBCUT SCH (19:08)
[2017-12-30] MEDS: MORPHINE 4 MG/1 ML VIAL IV PRN (21:10)
[2017-12-31] MEDS: INSULIN GLARGINE 100 UNIT/ML SUBCUT SCH (00:51)
[2017-12-31] MEDS: DESITIN 4OZ/NYSTATIN 15 GRAM MIXTURE PASTE TOP SCH (00:51)
[2017-12-31] MEDS: RANITIDINE 150 MG/10 ML 30 ML BOTTLE PER TUBE SCH (00:51)
[2017-12-31] MEDS: METOPROLOL TARTRATE 25 MG TABLET PO SCH (00:51)
[2017-12-31] MEDS: INSULIN LISPRO 100 UNIT/ML SUBCUT SCH (00:52)
[2017-12-31] MEDS: SODIUM CHLORIDE 0.45% 1,000 ML IV SCH (00:52)
[2017-12-31] MEDS: INSULIN REGULAR 100 UNIT/ML SUBCUT SCH (00:52)
[2017-12-31] MEDS: THEOPHYLLINE 5.33 MG/ML 30 ML/BOTTLE NG SCH ×2 (00:52→04:24)
[2017-12-31] MEDS: ALBUTEROL 0.4 MG/ML 30 ML/BOTTLE PO SCH (00:52)
[2017-12-31] MEDS: ALBUTEROL/IPRATROPIUM 3 ML NEB RESP TX SCH (00:54)
[2017-12-31] MEDS: MORPHINE 4 MG/1 ML VIAL IV PRN ×2 (01:01→03:00)
[2017-12-31] MEDS: LINEZOLID INJ 600 MG in PREMIX 1 EACH IV SCH (02:39)
[2017-12-31 04:52] VITALS: BP 70/51
== END 2017-12-31 03:30 | disposition expired | DRG 3 ==
LOC: N.ED 18:31 → N.CC 21:06 → SUATTDRO 21:33 → N.EDINP 21:33 → N.CC 22:12
PROVIDERS: ADMIT Surgery; ATTEND Surgery
PROC: EGDWPEG (ICD-10-PCS; 2017-12-10 09:05)